=== PATIENT | male | born 1960 | race Caucasian/White ===

== ENCOUNTER → 2019-06-15 09:10 | Outpatient (CLI) | payer MEDICAID, SELFPAY ==
--- NOTE | 2019-06-15 09:22 | XR_ITS ---
PROCEDURE: XR MULTIPLE SPINE 4-5V CLINICAL INDICATION: CERVICALGIA, LBP Left-sided neck pain and low back pain COMPARISON: No exams were available for comparison FINDINGS: Cervical spine two views: Normal alignment. There is mild upper cervical curvature convex right.. No fracture or dislocation. Lumbar spine: Three views minimal lumbar curvature convex left with mild facet arthritic changes at L5-S1 and mild degenerative disc disease at L4-5 and L5-S1. IMPRESSION: Degenerative changes lumbar spine. Mild upper cervical curvature convex right otherwise negative cervical Dictated by: Fernando Izquierdo MD 06/15/2019 13:42 Electronically signed by Fernando Izquierdo MD in [place] 06/15/2019 13:42
== END ==
PROVIDERS: PCP Nurse Practitioner; Visit Provider Nurse Practitioner
DX: M54.2 Cervicalgia (principal); M54.5 Low back pain
CPT/HCPCS: 72083

== ENCOUNTER 2019-07-28 16:00 | Outpatient (RCR) | payer MEDICAID, SELFPAY | END 2019-07-28 17:15 | disposition home or self-care (01) | LOC: PT.CARL 16:00 | PROVIDERS: PCP Nurse Practitioner; Visit Provider Nurse Practitioner | DX: M51.36 Other intervertebral disc degeneration, lumbar region (principal) | CPT/HCPCS: 97012; 97110; 97140; 97163 ==

== ENCOUNTER → 2019-08-19 08:36 | Outpatient (CLI) | payer MEDICAID, SELFPAY ==
[2019-08-19 09:38] LABS: Coronavirus 19 IgG Antibody Negative (Negative); Coronavirus 19 IgM Antibody Negative (Negative)
== END ==
PROVIDERS: Visit Provider Internal Medicine Gastroenterology
DX: Z03.818 Encounter for observation for suspected exposure to other biological agents ruled out (principal)
CPT/HCPCS: 36415; 86328

== ENCOUNTER 2019-08-20 08:16 | Day surgery (SDC) | payer MEDICAID, SELFPAY ==
--- NOTE | 2019-08-17 11:29 | SUR.PREOP ---
08/17/2019 @ 1130--PHONE CALL MADE TO PATIENT. PATIENT UNDERSTANDS THAT LAB WORK AND COVID TESTING NEEDS TO BE COMPLETED @ 0800 ON 08/19/2019. PATIENT UNDERSTANDS IF LAB WORK AND COVID-19 TESTS ARE NOT COMPLETED BY 12PM ON THAT DATE, THE SURGERY SCHEDULED WILL BE CANCELLED AND RESCHEDULED FOR ANOTHER TIME.
[2019-08-17 14:10] VITALS: BMI 32.1
[2019-08-20] VITALS (9 sets, daily range): BP systolic 100–125; BP diastolic 51–73; PULSE 51–63; RESP 16–18; TEMP 36.4–36.8; O2SAT 93–100
--- NOTE | 2019-08-20 09:42 | P.PN_ITS ---
[facility] Anesthesia Checklist - Patient Identification Patient Identification: Arm Band - Structural Data Admitted From: Home Planned Operative Procedure/s: colonoscopy Consent for Planned Operative Procedure(s) Verified: Yes Verified Documents: Surgical Consent, History and Physical - NPO Status Verified Time NPO: 00:00 - Additional verifications Anesthesia Reactions: No - Airway Assessment C-Spine Mobility Assessed: Yes (mp2) TMJ Mobility Assessed: Yes Dentition: Dentures-good fit - Neurological Assessment Level of Consciousness: Awake, Alert - Anesthesia Plan Anesthesia Risk discussed: Yes Anesthesia Plan: Verified ASA Class: III Anesthesia Type: MAC [facility] History I have reviewed the patient's past medical history: Yes Medical History: Reports:: Asthma, Cerebrovascular Accident, Hyperlipidemia, Hypertension Denies:: Cancer (+ cologuard), Diabetes Mellitus Type 1, Diabetes Mellitus Type 2, Internal Pacemaker, MRSA, Seizures *Have you ever received a pneumonia vaccine?: No *Have you received a flu vaccine this season?: Yes Anesthesia experience/problems:: nac Other Surgeries: Yes: Appendectomy, Cholecystectomy, Other. No: Pacemaker Amputation: No Fractures: Yes - *Social History Educational Level: Attended Grade School Smoking Status: Never smoker Alcohol Intake: never Substance Use Type: denies use *Occupational Status:: disabled Housing: house Household Members: none *Travel in the last 8 weeks: None Family Hx:: No significant family history
--- NOTE | 2019-08-20 10:50 | P.PCN_ITS ---
[facility] Procedure Note Procedure Note:: Colonoscopy Procedure Report: Colonoscopy Endoscopist: Jean Carlos Linares II, MD Referring physician: IMAN Lantigua Date of Procedure: August 20, 2019 Equipment: Olympus 180 variable stiffness pediatric colonoscope Sedation: MAC sedation Indication: Mr. Laguna is a 59-year-old gentleman here for diagnostic colonoscopy secondary to a positive Cologuard test. The patient reports no rectal bleeding, hematochezia or melena. He does get some chronic constipation as well as some right lower quadrant abdominal pain and discomfort. He has lost 25 pounds in the last few months. He reports some chronic lower back and neck pain. He reports no gassiness or bloating. He reports no family history of colon cancer. This is his first colonoscopy. The patient's hemoglobin and hematocrit were normal at 14.5 and 40.6. He had normal liver chemistries and normal creatinine. His PSA was normal at 1.2. Procedure: Prior to the procedure, a history and physical exam was performed, and patient's medications and allergies were reviewed. The risks, benefits and alternatives of the sedation and procedure were discussed with the patient. All questions were answered and informed consent was obtained. The patient was brought to the procedure room. Patient identification and proposed procedure were verified by the physician and the nurse. The patient was placed in a left lateral decubitus position and the scope was passed under direct vision. Throughout the procedure, the patient's blood pressure, pulse, and oxygen saturations were monitored continuously. The colonoscopy was accomplished without difficulty. The patient tolerated the procedure well. Findings: On digital rectal examination there was normal rectal tone. There were no external hemorrhoids. The prostate was 2+, smooth, soft, symmetric without nodules. The colonoscope was introduced through the anal canal to the rectum and advanced to the cecum. The ileocecal valve and appendiceal orifice were identified. The scope was advanced a short distance into the ileum which appeared grossly normal. The scope was then withdrawn into the colon. The cecum, ascending, transverse, descending, sigmoid and rectum were grossly normal. There were no mucosal abnormalities identified. Upon retroflexion within the rectum there were grade 1-2 internal hemorrhoids.The preparation was excellent throughout with Casselberry Preparation Score of 9. The cecal time was 16 minutes. Impression: 1. Normal colonoscopy with intubation of the terminal ileum 2. Grade 1-2 internal hemorrhoids Plan: There were no diagnostic findings. The patient is not anemic. Based upon his abdominal pain and weight loss, I would consider CT scan of the abdomen and pelvis which I may obtain today. I will recommend a fiber bowel regimen.
--- NOTE | 2019-08-20 11:31 | CT_ITS ---
PROCEDURE: CT CHEST W CON CLINCAL INDICATION: abdominal pain and weight loss Unexplained weight loss COMPARISON: CT ABDOMEN PELVIS W CON from 08/20/2019 TECHNIQUE: IV Contrast: 75ml Optiray 350 Axial images obtained with sagittal and coronal reformats. All CT scans at the facility use one or more dose reduction, viz: automated exposure control, ma/kV adjustment per patient size (including targeted exams where dose is matched to indication, i.e. head), or iterative reconstruction technique. FINDINGS: HEART AND MEDIASTINAL STRUCTURES: No mediastinal or hilar mass or adenopathy. There is some mild calcification of the coronary arteries. LUNGS AND PLEURAL SPACES: There is calcified granuloma in the left lower lobe. No lobar consolidation or collapse. No suspicious pulmonary nodules identified no central airway obstruction BONY STRUCTURES: There are old right-sided rib fractures posteriorly UPPER ABDOMEN: See abdomen report ADDITIONAL FINDINGS: No other significant abnormalities. IMPRESSION: No acute finding. Dictated by: Fernando Izquierdo MD 08/21/2019 07:57 Electronically signed by Fernando Izquierdo MD in [place] 08/21/2019 07:57
--- NOTE | 2019-08-20 11:31 | CT_ITS ---
PROCEDURE: CT ABDOMEN PELVIS W CON CLINICAL INDICATION: abdominal pain and weight loss COMPARISON: No exams were available for comparison TECHNIQUE: IV Contrast: 75ML OPTIRAY 350 Oral Contrast 20ml Gastroview Axial images obtained with sagittal and coronal reformats. All CT scans at the facility use one or more dose reduction, viz: automated exposure control, ma/kV adjustment per patient size (including targeted exams where dose is matched to indication, i.e. head), or iterative reconstruction technique. FINDINGS: LOWER THORAX: Minimal coronary artery calcification noted ABDOMEN & PELVIS: Prior cholecystectomy. There is mild thickening of the distal esophagus which is nonspecific but could be seen with esophagitis. The liver, spleen, adrenal glands, and pancreas have an unremarkable appearance. There is minimal ectasia of the abdominal aorta at 2 cm with mild calcification. There is minimal ectasia of the iliac arteries at 1.4 cm. There is mild thickening of the terminal ileum, cecum, and proximal ascending colon. There is no stranding of the pericolic fat. Prostate is slightly enlarged at 4.7 cm. There is concentric thickening of the wall of the urinary bladder. A small amount of fluid is present in the pelvis. There is a small umbilical hernia which contains a knuckle of small bowel. No evidence of bowel obstruction. No acute bony anomalies. There are mild degenerative changes of the pelvis and lumbar spine IMPRESSION: 1. Mild thickening of the terminal ileum, cecum, and proximal ascending colon. While this could be due to nondistention, inflammatory bowel disease is also consideration. Please correlate with patient's recent endoscopy. 2. Small umbilical hernia containing a knuckle of small bowel without obstruction 3. Enlarged prostate. 4. Concentric thickening of the urinary bladder. This is nonspecific and could in part be due to nondistention. Infiltrating process such is cystitis or neoplasm would be included in the differential diagnosis. There is a small amount of fluid in the pelvis Dictated by: Fernando Izquierdo MD 08/21/2019 08:18 Electronically signed by Fernando Izquierdo MD in [place] 08/21/2019 08:18
[2019-08-20 12:01] LABS: Blood Urea Nitrogen 13 mg/dl (9-20); Creatinine Clearance Estimated 124 mL/min (50-200); Estimated Glomerular Filt Rate 86 ml/min (>60); GFR (African American) 105 ML/MIN (>60)
== END 2019-08-20 13:43 | disposition home or self-care (01) ==
LOC: OUTP 08:17
PROVIDERS: PCP Nurse Practitioner; Visit Provider Internal Medicine Gastroenterology
PROC: 0DJD8ZZ Inspection of Lower Intestinal Tract, Via Natural or Artificial Opening Endoscopic (ICD-10-PCS; CPT 45378; principal; 2019-08-20 09:30)
DX: R19.5 Other fecal abnormalities (principal); K59.09 Other constipation; R10.31 Right lower quadrant pain; M54.9 Dorsalgia, unspecified; M54.2 Cervicalgia; K64.0 First degree hemorrhoids; I10 Essential (primary) hypertension; E78.5 Hyperlipidemia, unspecified; J45.909 Unspecified asthma, uncomplicated; I63.9 Cerebral infarction, unspecified; Z90.49 Acquired absence of other specified parts of digestive tract
CPT/HCPCS: 45378; 36415; 71260; 74177; 82565; 84520; Q9967

== ENCOUNTER → 2019-09-23 08:00 | Outpatient (CLI) | payer MEDICAID, SELFPAY ==
--- NOTE | 2019-09-23 08:02 | CA_ITS ---
APPROVED REPORT EXAM: Comprehensive 2D, Doppler, and color-flow Echocardiogram Contracting Analyst: Chiara Beverly CRT Ht: 5 ft 9 in Wt: 220lbs BSA: 2.15 BP: 117/73 mmHg Indications: Shortness of Breath, Peripheral Edema, Hyperlipidemia, Hypertension/HDD, asthma, CVA 2D Dimensions LVOT 2.03 cm (M/F) 1.5-2.5 M-Mode Dimensions RVDd 2.85 cm (0.9-2.6) LVDd 5.40 cm (3.5-5.7) LVDs 3.69 cm (3.5-5.7) IVSd 1.67 cm (0.6-1.1) PWd 0.84 cm (0.6-1.1) EF (Teich) 59.10% FS 31.70% EDV (Teich) 141.30 mL ESV (Teich) 57.80 mL LV Diastology E/A Ratio 0.84 Mitral Valve MV A Velocity 76.00 (40-130 cm/s) Left Ventricle Left atrium is mildly enlarged, left ventricle is normal size, mild concentric left ventricular hypertrophy, visually estimated ejection fraction 55% with no regional wall motion abnormality, grade 1 diastolic dysfunction seen without tissue Doppler evidence of raise left atrial pressure. Right Ventricle Right atrium and right ventricle are normal size and contractility. Aortic Valve Aortic valve is minimally thickened and fibrosed, there is no aortic stenosis or aortic insufficiency. Mitral Valve Mitral valve is grossly normal, there is trace mitral regurgitation. Tricuspid Valve Tricuspid valve is grossly normal, there is mild tricuspid regurgitation, tricuspid regurgitation jet velocity is inadequate for calculation of the right ventricular systolic pressure. Pulmonic Valve Pulmonic valve is poorly visualized. Great Vessels Aortic root is normal size. Pericardium No significant pericardial effusion noted. Conclusion 1. Mildly enlarged left atrium, normal left ventricular size, mild concentric left ventricular hypertrophy, visually estimated ejection fraction 55% with no regional wall motion abnormality, grade 1 diastolic dysfunction seen without tissue Doppler evidence of raise left atrial pressure. 2. Mild mitral and tricuspid regurgitation. 3. No significant pericardial effusion noted. Electronically signed by : Earl Lares, 09/23/2019 13:19:36
--- NOTE | 2019-09-23 08:42 | MR_ITS ---
PROCEDURE: MR LUMBAR SPINE WO CON CLINICAL INDICATION: LOW BACK PAIN COMPARISON: XR MULTIPLE SPINE 4-5V from 06/15/2019 TECHNIQUE: Standard multiplanar multiecho sequences are performed without contrast. 3-D MIP and myelographic images are also rendered and reviewed FINDINGS: There is a 12.76 hyperintense hemangioma within the L2 vertebral body. There is otherwise uniform fat marrow signal hyperintensity. The spinal cord, conus medullaris, and disc spaces are intact. At the L1-2 disc space there is no significant spinal stenosis. At the L2-3 disc space there is no significant spinal stenosis. At the L3-4 disc space there is no significant spinal stenosis. At the L4-5 disc space there is a broad-based disc protrusion, mild facet arthropathy, and hypertrophy of the ligament flavum producing moderate central canal and moderate bilateral neural foraminal stenosis. AP canal measures 7.5 millimeters. At the L5-S1 disc space there is a eccentric broad-based disc osteophyte complex and, hypertrophy ligament flavum, moderate facet arthropathy, left greater than right producing mild central canal and pnev-nn-nhjrquhy left neural foraminal stenosis. There is a subtle left laminectomy defect with enhancing scar. The paralumbar structures are unremarkable. IMPRESSION: Status post left L5-S1 hemilaminectomy, multi-level spinal stenosis as described above. Dictated by: Raphael Ramirez 09/23/2019 10:13 Electronically signed by Raphael Ramirez in [place] 09/23/2019 10:13
== END ==
PROVIDERS: PCP Nurse Practitioner; Visit Provider Nurse Practitioner
DX: M54.5 Low back pain (principal); R60.0 Localized edema
CPT/HCPCS: 72148; 76376; 93306

== ENCOUNTER → 2019-10-29 06:31 | Outpatient (CLI) | payer MEDICAID, SELFPAY ==
--- NOTE | 2019-10-29 | CA_ITS ---
APPROVED REPORT Exam: Pharmacologic Technologist: Criselda Graham, Ht: 5 ft 9 in Wt: 185 lbs BSA: 2.00 m2 HR: 65 bpm BP: 126/87 mmHg Rhythm: SINUS RHYTHM(ABNORMAL EKG)RBBB Medical History Medical History: HTN, Hyperlipidemia Medications: Asa,,,,, Atorvastatin,,,,, TAMSULOSIN,,,,, Albuterol,,,,, SpirOLACTONE,,,,, Allergies: SHELL FISH PCN Cardiac Risk Factors: HTN, Hyperlipidemia Stress Test Details Test: LEXISCAN HR Resting HR: 64 bpm Max Heart Rate (APMHR): 161 bpm Max HR Achieved: 92 bpm Target HR (85% APMHR): 136 bpm % of APMHR: 57 Recovery HR: 84 bpm BP Resting BP: 126.0/81.0 mmHg Max BP: 135.0/84.0 mmHg Recovery BP: 135.0/84.0 mmHg ECG Resting ECG: SINUS RHYTHM(RBBB) Clinical Exercise duration: 04:00 min Highest Stage Achieved: Exercise capacity: 1.0 METs Stress ECG Conclusion LEXISCAN PORTION COMPLETED. PATIENT C/O NAUSEA DURING PEAK INFUSION. NO CHEST PAIN OR SOA. NAUSEA DURING PEAK INFUSION. NO ECTOPY. LESS THAN 1.[address] DEPRESSION. IMAGES TO FOLLOW Electronically signed by : Earl Lares, 10/29/2019 13:28:43
--- NOTE | 2019-10-29 06:32 | CA_ITS ---
APPROVED REPORT Human Resources Manager Manufacturing: JAYME Laterality: Bilateral Study Quality: Good Indications: History of CVA, Carotid bruits on exam Doppler Spectral Velocity Analysis dICA (R) 62.60/22.90 cm/s dICA (L) 72.20/30.00 cm/s Laney (R) 85.10/28.40 cm/s Laney (L) 68.00/26.00 cm/s pICA (R) 86.30/31.50 cm/s pICA (L) 68.50/24.50 cm/s dCCA (R) 133.80/37.30 cm/s dCCA (L) 111.50/29.10 cm/s pCCA (R) 145.80/34.00 cm/s pCCA (L) 222.80/47.60 cm/s Vert (R) 54.80/16.40 cm/s Vert (L) 51.80/16.00 cm/s ICA/CCA 0.70 ICA/CCA 0.70 Findings The right carotid arterial system appeared to be normal without stenosis of the bulb or internal carotid artery. The left carotid arterial system appeared to be normal without stenosis of the bulb or internal carotid artery. Antegrade flow seen bilateral vertebral arteries. Conclusion No increased velocities to suggest hemodynamically significant stenosis in either internal carotid artery. Electronically signed by : Fernando Izquierdo MD 11/01/2019 15:25:46
--- NOTE | 2019-10-29 06:36 | NM_ITS ---
APPROVED REPORT Exam: Nuclear Stress Test Indication: chest pain..short of breath..fatigue Patient Location: Outpatient Stress Tech: Tasia Gladys [place] Tech:RESHMA Medina RT(R)(N) Ht: 5 ft 9 in Wt: 185 lbs HR: 65 bpm BP: 126/81 mmHg BSA: 2.00 m2 BMI: 27.3 History: chest pain..short of breath..fatigue Procedure: Patient received a 0.4 mg of intravenous Lexiscan, resting heart rate 65 bpm, resting blood pressure 126/81 mmHg, with Lexiscan maximum heart rate achived was 84 bpm which is Less than 85 % of the maximum predicted heart rate and blood pressure was 135/84 mmHg. With Lexiscan, patient denied any complaint of chest pain. Electrocardiogram Resting electrocardiogram showed sinus rhythm, with Lexiscan there is less than 1.[address] segment depression noted from the baseline EKG. The EKG portion of the Lexiscan Myoview is nondiagnostic. Cardiac Stress and Resting SPECT Images: Cardiac Stress and Resting SPECT images were obtained using technetium 99m Myoview 30.4 mCi stress and 9.96 mCi at rest. Gated SPECT for analysis of segmental wall motion and calculation of the ejection fraction also done. Cardiac stress and resting SPECT images show decrease tracer activity in the inferior wall which improves on the resting images suggestive of reversible ischemia, computer derived ejection fraction is 57% with no regional wall motion abnormality, right ventricle is normal size and contractility. Conclusion: 1. The EKG portion of the Lexiscan Myoview is nondiagnostic. 2. Scintigraphic evidence of mild reversible ischemia involving the inferior wall, computer derived ejection fraction is 57% with no regional wall motion abnormality, right ventricle is normal size and contractility. 3. Abnormal Lexiscan Myoview study. Electronically signed by : Earl Lares, 10/29/2019 13:31:22
--- NOTE | 2019-10-29 09:49 | HMH.ITSHM ---
Current Home Medications as stated by this patient Eric Laguna or health and safety representative. [] spironlactone tamsulosin asa alfuzosn alberterol
== END ==
PROVIDERS: PCP Nurse Practitioner; Visit Provider Physician Assistant
DX: R94.31 Abnormal electrocardiogram [ECG] [EKG] (principal); Z86.73 Personal history of transient ischemic attack (TIA), and cerebral infarction without residual deficits; I11.9 Hypertensive heart disease without heart failure
CPT/HCPCS: 78452; 93017; 93880; A9502; J2785

== ENCOUNTER → 2019-10-29 10:02 | Outpatient (CLI) | payer MEDICAID, SELFPAY ==
[2019-10-29 10:58] LABS: Chloride 101 mmol/L (98-107); Sodium 139 mmol/L (136-145)
[2019-10-29 10:59] LABS: Potassium 4.7 mmoL/L (3.5-5.1)
[2019-10-29 11:02] LABS: Anion Gap 12.7 mEq/L (5-15); Blood Urea Nitrogen 22 mg/dl (9-20); Carbon Dioxide 30 mmol/L (22.0-30.0); Estimated Glomerular Filt Rate 76 ml/min (>60); GFR (African American) 93 ML/MIN (>60); Glucose 77 mg/dl (74-100)
== END ==
PROVIDERS: Visit Provider Physician Assistant
DX: R06.00 Dyspnea, unspecified (principal); I11.9 Hypertensive heart disease without heart failure
CPT/HCPCS: 36415; 80048

== ENCOUNTER 2019-11-10 08:14 | Day surgery (SDC) | payer MEDICAID, SELFPAY ==
[2019-11-10] VITALS (13 sets, daily range): BP systolic 83–121; BP diastolic 48–70; PULSE 50–66; RESP 16–20; TEMP 36.6; O2SAT 91–97; BMI 30.5
[2019-11-10 09:23] LABS: Basophils # 0.1 K/mm3 (0-0.2); Eosinophils # 0.1 K/mm3 (0.0-0.4); Eosinophils % 1.7 % (0.1-12.0); Hematocrit 43.5 % (42.0-52.0); Hemoglobin 14.8 g/dL (14.1-18.0); Lymphocytes # 2.5 K/mm3 (0.7-4.5); Lymphocytes % 41.6 % (10-50); Mean Corpuscular Hemoglobin 33.8 pg (27.0-31.2); Mean Corpuscular Volume 99.2 fl (80-94); Mean Platelet Volume 7.4 fl (7.4-10.4); Monocytes # 0.7 K/mm3 (0.1-1.0); Monocytes % 11.7 % (1.7-9.3); Neutrophils # 2.7 K/mm3 (1.8-7.8); Neutrophils % 43.9 % (37.0-80.0); Platelet Count 174 K/mm3 (142-424); Red Blood Count 4.38 M/mm3 (4.60-6.20); Red Cell Distribution Width 13.2 % (11.5-17.5)
[2019-11-10 09:29] LABS: Chloride 106 mmol/L (98-107); Potassium 4.4 mmoL/L (3.5-5.1); Sodium 140 mmol/L (136-145)
[2019-11-10 09:32] LABS: Anion Gap 11.4 mEq/L (5-15); Blood Urea Nitrogen 23 mg/dl (9-20); Calcium 9.3 mg/dl (8.4-10.2); Carbon Dioxide 27 mmol/L (22.0-30.0); Creatinine Clearance Estimated 106 mL/min (50-200); Estimated Glomerular Filt Rate 76 ml/min (>60); GFR (African American) 93 ML/MIN (>60); Glucose 90 mg/dl (74-100)
[2019-11-10 09:49] LABS: Coronavirus 19 IgG Antibody Positive (Negative); Coronavirus 19 IgM Antibody Negative (Negative)
--- NOTE | 2019-11-10 10:30 | IR_ITS ---
APPROVED REPORT Patient Location: Outpatient Java Developer: RESHMA Herman RT (R) PROCEDURES Right heart catheterization left heart catheterization Left ventriculogram Selective coronary angiogram INDICATION Abnormal Myoview, Dyspnea, Pulmonary hypertension Informed consent was obtained prior to the procedure. COMPLICATIONS NONE Estimated Blood Loss: Less than 10 mls TECHNIQUE One percent lidocaine was used to anesthetize the right anterior aspect of the right wrist. The right radial artery was accessed via the Seldinger technique and a 6 [place]une[place] hydrophilic sheath was placed in the right radial artery. Following this one percent lidocaine was used to anesthetize the right anterior aspect of the right neck. The right internal jugular vein was accessed via the Seldinger technique and a 7 [place] sheath was placed in the right internal jugular vein. Following this an arterial cocktail was administered using 5000U heparin, 2.5 mg verapamil, 1mg Lidocaine and 800mcg nitroglycerin into the right radial sheath. A trap catheter was used to perform left heart catheterization left ventriculogram and selective coronary angiography while a [place]Zachary catheter was used to perform right heart catheterization. Saturations were obtained in the pulmonary artery and right atrium. At the end of the procedure the arterial sheath was removed good hemostasis was achieved using Traclet band. Patient was transferred to the postop holding area in stable condition for venous sheath removal. ANGIOGRAPHIC RESULTS The left main artery Normal The left anterior descending artery Has mild proximal and mid vessel 10% luminal irregularities The circumflex artery Is nondominant yet still large vessel with mild mid vessel 10 to 20% stenoses The right coronary artery Is a dominant vessel with mid vessel 20 to 30% stenoses The SANCHEZ ventriculogram reveals Normal 65% The left ventricular end-diastolic pressure Less than 10 mmHg Right atrial pressure 2 to 3 mmHg Pulmonary pressure 20/8 mmHg Pulmonary occlusion pressure 5 mmHg Right atrial and pulmonary artery saturation 82% IMPRESSION Mild gqi-gson-aqbaqghz coronary disease Normal intra-cardiopulmonary filling pressures Normal ejection fraction PLAN 1. Evaluation of noncardiac symptomatology 2. Risk factor modification Electronically signed by : Jonathan Morris, 11/10/2019 11:19:52
[2019-11-10 14:18] LABS: CATHL Arterial O2 SAT 82 % (90-100); CATHL Venous O2 SAT 82 % (75-80)
== END 2019-11-10 14:33 | disposition hospice, home (50) ==
LOC: CATHLAB 08:16
PROVIDERS: PCP Nurse Practitioner; Visit Provider Internal Medicine
DX: I11.9 Hypertensive heart disease without heart failure (principal); E78.5 Hyperlipidemia, unspecified; I27.20 Pulmonary hypertension, unspecified; R94.31 Abnormal electrocardiogram [ECG] [EKG]; R94.39 Abnormal result of other cardiovascular function study; Z87.891 Personal history of nicotine dependence; I69.328 Other speech and language deficits following cerebral infarction; I69.398 Other sequelae of cerebral infarction; Z88.0 Allergy status to penicillin; Z91.013 Allergy to seafood
CPT/HCPCS: 80048; 82810; 85025; 86328; 93460; 99152; C1725; C1760; C1769; C1894; J1644; Q9967

== ENCOUNTER 2020-04-07 09:44 | Emergency (ER) | payer MEDICAID, SELFPAY ==
[2020-04-07 09:45] VITALS: BP 151/90; PULSE 77; RESP 18; TEMP 36.8; O2SAT 97; BMI 29.5
--- NOTE | 2020-04-07 09:50 | HMH.EDGENADL ---
ED Disposition Clinical Impression: Wrist pain Qualifiers: Laterality: left Qualified Code(s): M25.532 - Pain in left wrist Disposition: Home, Self-Care Condition on Discharge: Good Additional Instructions: Remain in wrist base except for bathing. Take medication as prescribed. Do not take Tylenol with codeine while operating heavy machinery or drinking alcohol. Only take this for breakthrough pain. Please follow-up with your doctor next week and if continued pain you may be requiring referral to specialist. If any new or other concerning symptoms like decreased range of motion, overlying skin changes, increased pain, or other new changes please return to our emergency department immediately. Referrals: Ciara Shay APRN [Primary Care Provider] - - Critical Care Critical Care Time: No Attestation: On , the high probability of a clinically significant, sudden or life threatening deterioration of the following system(s) required my full and direct attention, intervention and personal management. The time I documented below is in addition to time spent performing reported procedures but includes the following listed in this critical care notation. Medical Decision Making - Medical Records Medical records reviewed: Yes: I reviewed the patient's medical records. - Piyush Inquiry Pt receiving controlled substance: No Vital Signs: 04/07/20 09:45 04/07/20 10:27 Temperature 98.3 F Temperature Source Oral Pulse Rate [Left Radial] 77 77 Respiratory Rate 18 20 Blood Pressure [Right Arm] 151/90 H 153/92 H Blood Pressure Mean [Right Arm] 110 112 Blood Pressure Source [Right Arm] Automatic Cuff Automatic Cuff Blood Pressure Position [Right Arm] Sitting Sitting 02 Sat by Pulse Oximetry 97 97 Oxygen Delivery Method Room Air Room Air Medical Decision Narrative: Patient is a 60-year-old male presenting with left wrist/hand pain. He states is atraumatic but x-rays will be obtained to ensure no fracture or other bony abnormalities. He is neurovascularly intact in median, ulnar, and radial nerve distribution. No breaks in the skin. No outward signs of trauma. No redness/overlying erythema that could indicate an infectious process. He has full active and passive range of motion. X-rays demonstrate no periosteal elevation, other infectious signs, or bony abnormalities. At this time, etiology not entirely certain. No significant laxity noted to ulnar collateral ligament of the left but he does have some pain with doing some bedside testing. There could be some ligamentous injury so patient placed in a wrist brace and sent home with Tylenol with codeine for breakthrough pain use. He would not operate heavy machinery or drink alcohol while taking this pain medicine. He agrees. He will follow-up with his doctor next week and if he is not improving he may be requiring referral to orthopedic. Assessment: Left wrist pain Hypertension Hyperlipidemia Disposition: Home with a wrist brace and PCP follow-up General Adult HPI - General Stated complaint: left hand pain Time Seen by Provider: 04/07/20 10:30 - History of Present Illness HPI narrative: Patient is a 60-year-old male history of hypertension, hyperlipidemia presenting with left wrist pain. Patient states over the past several days he has had an aching pain in his left hand/wrist. He denies any known trauma. He does have arthritis as well and states this feels somewhat like his arthritis in the past. No decreased passive or active range of motion in his left hand/wrist. No overlying changes to the skin or breaks in the skin. He has tried Tylenol with some relief. - Related Data Home Medications Medication Instructions Recorded Confirmed Albuterol Sulfate [Albuterol 4 mg PO DAILY 08/20/19 11/22/19 Sulfate 4mg Tab] Alfuzosin HCl [Alfuzosin HCl ER] 10 mg PO DAILY 08/20/19 11/22/19 Aspirin [Aspir 81] 81 mg PO DAILY 08/20/19 11/22/19 Atorvastati
--- NOTE | 2020-04-07 10:12 | XR_ITS ---
PROCEDURE: XR WRIST LT MIN 3V CLINICAL INDICATION: L wrist pain nontraumatic COMPARISON: No exams were available for comparison FINDINGS: No fracture or dislocation. No lytic or blastic change. There is normal mineralization. The joint spaces are well-preserved. No significant degenerative/arthritic changes. No erosive changes evident. Other findings:None. IMPRESSION: No acute findings. Dictated by: Fernando Izquierdo MD 04/07/2020 11:01 Fernando Izquierdo MD in [place] 04/07/2020 11:01
--- NOTE | 2020-04-07 10:13 | XR_ITS ---
PROCEDURE: XR HAND LT MIN 3V CLINICAL INDICATION: pain COMPARISON: No exams were available for comparison FINDINGS: No fracture or dislocation. No lytic or blastic change. There is normal mineralization. The joint spaces are well-preserved. No significant degenerative/arthritic changes. No erosive changes evident. Other findings:None. IMPRESSION: No acute findings. Dictated by: Fernando Izquierdo MD 04/07/2020 11:01 Fernando Izquierdo MD in [facility] 04/07/2020 11:01
[2020-04-07 10:27] VITALS: BP 153/92; PULSE 77; RESP 20; O2SAT 97
[2020-04-07 11:21] VITALS: BP 130/82; PULSE 78; RESP 20; O2SAT 95
[2020-04-07 11:40] VITALS: BP 130/80; PULSE 78; RESP 18; TEMP 36.8; O2SAT 95
== END 2020-04-07 11:41 | disposition home or self-care (01) ==
PROVIDERS: Emergency Provider Emergency Medicine; PCP Nurse Practitioner
DX: M25.532 Pain in left wrist (principal); I10 Essential (primary) hypertension; E78.5 Hyperlipidemia, unspecified; J45.909 Unspecified asthma, uncomplicated; Z87.891 Personal history of nicotine dependence; Z88.0 Allergy status to penicillin; Z79.899 Other long term (current) drug therapy
CPT/HCPCS: 29125; 73110; 73130; 99282

== ENCOUNTER 2020-08-06 10:40 | Emergency (ER) | payer MEDICAID, SELFPAY ==
[2020-08-06] VITALS (7 sets, daily range): BP systolic 120–148; BP diastolic 71–94; PULSE 67–97; RESP 13–18; TEMP 36.6–36.8; O2SAT 95–98; BMI 29.5
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
[2020-08-06 11:32] LABS: Basophils % 0.6 % (0.1-2.0); Eosinophils # 0.1 K/mm3 (0.0-0.4); Eosinophils % 1.3 % (0.1-12.0); Hematocrit 44.3 % (42.0-52.0); Hemoglobin 14.1 g/dL (14.1-18.0); Lymphocytes # 2.2 K/mm3 (0.7-4.5); Mean Corpuscular HGB Conc 31.9 g/dL (31.8-35.4); Mean Corpuscular Hemoglobin 31.5 pg (27.0-31.2); Mean Corpuscular Volume 98.8 fl (80-94); Mean Platelet Volume 7.3 fl (7.4-10.4); Monocytes # 0.7 K/mm3 (0.1-1.0); Monocytes % 11.7 % (1.7-9.3); Neutrophils # 2.9 K/mm3 (1.8-7.8); Neutrophils % 49.4 % (37.0-80.0); Platelet Count 164 K/mm3 (142-424); Red Blood Count 4.48 M/mm3 (4.60-6.20); Red Cell Distribution Width 13.6 % (11.5-17.5); White Blood Count 5.9 K/mm3 (4.8-10.8)
[2020-08-06 11:33] LABS: Chloride 104 mmol/L (98-107)
[2020-08-06 11:34] LABS: Potassium 3.7 mmoL/L (3.5-5.1); Sodium 136 mmol/L (136-145)
[2020-08-06 11:36] LABS: Alanine Aminotransferase 34 U/L (12-78); Alkaline Phosphatase 66 U/L (38-126); Aspartate Amino Transferase 41 U/L (17-59); Bilirubin,Total 0.7 mg/dl (0.2-1.3); Blood Urea Nitrogen 10 mg/dl (9-20); Creatinine Clearance Estimated 112 mL/min (50-200); Estimated Glomerular Filt Rate 86 ml/min (>60); GFR (African American) 104 ML/MIN (>60)
[2020-08-06 11:37] LABS: Albumin Level 3.9 g/dl (3.5-5.0); Albumin/Globulin Ratio 1.6 (1.1-1.8); Anion Gap 10.7 mEq/L (5-15); Calcium 9.2 mg/dl (8.4-10.2); Carbon Dioxide 25 mmol/L (22.0-30.0); Globulin 2.5 g/dL (1.3-3.2); Glucose 156 mg/dl (74-100); Total Protein,Serum 6.4 g/dl (6.3-8.2)
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
--- NOTE | 2020-08-06 13:05 | PC.NURSE ---
[facility] CT and x-ray reports given to ER MD Atkins.
--- NOTE | 2020-08-06 14:05 | PC.NURSE ---
Dr Atkins speaking with [employer]
--- NOTE | 2020-08-06 14:37 | PC.NURSE ---
Patient was asked to call a pizza driver before Morphine could be administered as he will be getting discharged shortly. Pt called a Judit Perea on speaker to drive him home and she agreed.
== END 2020-08-06 17:24 | disposition home or self-care (01) ==
PROVIDERS: Emergency Provider Emergency Medicine; PCP Nurse Practitioner
DX: S12.501A Unspecified nondisplaced fracture of sixth cervical vertebra, initial encounter for closed fracture (principal); S02.2XXA Fracture of nasal bones, initial encounter for closed fracture; S60.511A Abrasion of right hand, initial encounter; V48.0XXA Car driver injured in noncollision transport accident in nontraffic accident, initial encounter; Y92.488 Other paved roadways as the place of occurrence of the external cause
CPT/HCPCS: 70450; 70486; 71046; 72125; 73030; 73130; 74177; 80053; 85025; 99281; J2405; Q9967

== ENCOUNTER 2020-08-13 08:52 | Emergency (ER) | payer OTHER, SELFPAY ==
[2020-08-13 08:54] VITALS: BP 132/86; PULSE 84; RESP 17; TEMP 36.6; O2SAT 99; BMI 29.5
--- NOTE | 2020-08-13 09:23 | HMH.EDGENADL ---
ED Disposition Clinical Impression: Radiculopathy affecting upper extremity C6 cervical fracture Qualifiers: Encounter type: initial encounter Fracture type: closed Fracture morphology: unspecified fracture morphology Fracture alignment: nondisplaced Qualified Code(s): S12.501A - Unspecified nondisplaced fracture of sixth cervical vertebra, initial encounter for closed fracture Left shoulder pain Qualifiers: Chronicity: acute Qualified Code(s): M25.512 - Pain in left shoulder Disposition: Home, Self-Care Condition on Discharge: Good Additional Instructions: Lortab 10 mg as prescribed for pain. Follow-up with [facility] spine clinic. Follow-up with Dr. Blake, orthopedics at [facility] for evaluation of shoulder, call for appointment. Additional instructions for CONTROLLED SUBSTANCES: You have been prescribed a medication that is a controlled substance. Controlled substances include pain medications known as opiates and sedative nerve medications known as benzodiazepines. Tramadol, fioricet, and gabapentin are also controlled substances. Some common opiates include: Codeine (such as Tylenol #3) Hydrocodone (Vicodin, Lortab, Lorcet, [place]) Oxycodone (Percocet, Percodan, Oxycodone, Oxy IR) Some common benzodiazepines include: Diazepam (Valium) Lorazepam (Ativan) Alprazolam (Xanax) Clonazepam (Klonopin) Oxazepam (Serax) All of these controlled substances are highly addictive and frequently abused. Misuse can and frequently does lead to addiction as well as overdose and . Medication should be stored in a locked cabinet or other secure storage unit. Do not store the medication in a motor vehicle. Short term supplies, 3 days or less, are prescribed because of the highly addictive nature of the medication. Any of the controlled substance medication NOT taken should be disposed of properly and NOT SAVED. The recommended method of disposing of unused medications is: Place the medicines in a sealable plastic bag. If the medicine is a solid, crush it or add water to dissolve it. Add something undesirable (cat litter, coffee grounds, etc.) Dispose of sealed bag in household trash Do not flush or pour unused medicines down a sink or drain. Controlled substances should not be shared, given away or sold. Because of the addictive nature and frequent abuse, these medications are sometimes stolen. These medications should be kept in a safe place where they cannot be stolen. Do not keep them in your car or purse. Lost or stolen prescriptions for controlled substances WILL NOT BE REFILLED in this emergency department, regardless of whether a police report was filed. Prescriptions: Hydrocodone/Acetaminophen [Lortab 10/325mg tablet] 1 tab PO Q6HP PRN #10 tab PRN Reason: Moderate To Severe Pain Transmission Status: Received by [facility] #[id number] Referrals: Ciara Shay APRN [Primary Care Provider] - Zuleima Blake MD [Physician] - - Critical Care Critical Care Time: No Attestation: On 08/13/20, the high probability of a clinically significant, sudden or life threatening deterioration of the following system(s) required my full and direct attention, intervention and personal management. The time I documented below is in addition to time spent performing reported procedures but includes the following listed in this critical care notation. Medical Decision Making - Piyush Inquiry Pt receiving controlled substance: Yes Piyush was queried for this patient: Yes Risks and benefits of using a controlled substance: were discussed with pt by me Vital Signs: 08/13/20 08:54 08/13/20 09:30 Temperature 97.9 F 97.9 F Temperature Source Oral Oral Pulse Rate 73 Pulse Rate [Right] 84 Respiratory Rate 17 18 Blood Pressure 143/71 H Blood Pressure [Right Arm] 132/86 Blood Pressure Mean [Right Arm] 101 02 Sat by Pulse Oximetry 99 Oxygen Delivery
[2020-08-13 09:30] VITALS: BP 143/71; PULSE 73; RESP 18; TEMP 36.6; O2SAT 98
== END 2020-08-13 09:38 | disposition home or self-care (01) ==
PROVIDERS: Emergency Provider Emergency Medicine; PCP Nurse Practitioner
DX: M54.12 Radiculopathy, cervical region (principal); S12.501D Unspecified nondisplaced fracture of sixth cervical vertebra, subsequent encounter for fracture with routine healing; S02.2XXD Fracture of nasal bones, subsequent encounter for fracture with routine healing; I10 Essential (primary) hypertension; E78.5 Hyperlipidemia, unspecified; Z86.73 Personal history of transient ischemic attack (TIA), and cerebral infarction without residual deficits
CPT/HCPCS: 99281

== ENCOUNTER → 2020-09-28 12:28 | Outpatient (CLI) | payer MEDICAID, SELFPAY ==
--- NOTE | 2020-09-28 12:35 | XR_ITS ---
PROCEDURE: XR CHEST 2V CLINICAL HISTORY: ABN WEIGHT LOSS COMPARISON: CT CT CHEST W CON from 08/20/2019 CR XR CHEST 2V from 08/06/2020 FINDINGS: The cardiomediastinal silhouette and pulmonary vascularity are within normal limits. The lungs are clear without infiltrates, suspicious nodules, or pleural effusions. There is calcified granuloma in the left lung base. There are old bilateral rib fractures. Cervical bone plate is present. IMPRESSION: No change with no acute Dictated by: Fernando Izquierdo MD 09/28/2020 13:13 Fernando Izquierdo MD in [place] 09/28/2020 13:13
== END ==
PROVIDERS: PCP Nurse Practitioner; Visit Provider Nurse Practitioner
DX: R63.4 Abnormal weight loss (principal)
CPT/HCPCS: 71046

== ENCOUNTER → 2021-03-29 06:28 | Outpatient (CLI) | payer MEDICAID, SELFPAY ==
--- NOTE | 2021-03-29 | CA_ITS ---
APPROVED REPORT Exam: Pharmacologic Technologist: Myrna Salcedo, Ht: 5 ft 9 in Wt: 226 lbs BSA: 2.18 m2 HR: 70 bpm BP: 141/80 mmHg Medical History Medications: Omeprazole,,,,, Aspirin,,,,, Metoprolol Tartrate,,,,, Atorvastatin,,,,, Albuterol,,,,, Ibuprofen,,,,, AmiTRIPTYLINE,,,,, Furosemide,,,,, Divaloproex,,,,, Stress Test Details Test: LEXISCAN HR Resting HR: 72 bpm Max Heart Rate (APMHR): 159.886692 bpm Max HR Achieved: 91 bpm Target HR (85% APMHR): 135.783615 bpm % of APMHR: 57.23 Recovery HR: 79 bpm BP Resting BP: 141/80 mmHg Max BP: 147/83 mmHg Recovery BP: 143.0/89.0 mmHg ECG Resting ECG: NSR, rightward axis, ST-T abns inferiorly and laterally Clinical Exercise duration: 04:00 min Highest Stage Achieved: Exercise capacity: 1.0 METs Stress ECG Conclusion Symptoms: SOA, stomach discomfort. No CP. Arrhythmias/Ectopy: None. ST-T Changes: mild exaggeration of baseline abns. Conclusion: Non-diagnostic Lexiscan stress. Myoview images reported separately. Test Summary REST . . . . . . . Resting REST 02:23 . . 72 . 141/ 80 . . Stage 1 01:00 . . 83 . . . . Stage 2 01:00 . . 88 . 136/ 81 . . Stage 3 01:00 . . 85 . 141/ 84 . . Stage 4 01:00 . . 83 . 147/ 83 . Stop exercise at 04:00 RECOVERY 01:00 . . 83 . . . . RECOVERY 02:00 . . 82 . 137/ 93 . . RECOVERY 03:00 . . 81 . 143/ 89 . . RECOVERY 03:18 . . 83 . 143/ 89 . . Electronically signed by : Earl Lares MD 03/30/2021 15:38:47
--- NOTE | 2021-03-29 06:36 | NM_ITS ---
APPROVED REPORT Exam: Nuclear Stress Test Indication: C.P., SOB, HYPERTENSIVE HEART DISEASE, EDEMA Patient Location: Outpatient Stress Tech: Myrna Salcedo MD Tech:RESHMA Gray RT (R)(N)(M) Ht: 5 ft 9 in Wt: 240 lbs HR: 70 bpm BP: 141/80 mmHg BSA: 2.23 m2 BMI: 35.4 History: C.P., SOB, HYPERTENSIVE HEART DISEASE, EDEMA Procedure: Patient received a 0.4 mg of intravenous Lexiscan, resting heart rate 70 bpm, resting blood pressure 141/80 mmHg, with Lexiscan maximum heart rate achived was 90 bpm which is Less than 85 % of the maximum predicted heart rate and blood pressure was 136/81 mmHg. With Lexiscan, patient denied any complaint of chest pain. Electrocardiogram Resting electrocardiogram showed sinus rhythm, with Lexiscan there is less than 1.[address] segment depression noted from the baseline EKG. The EKG portion of the Lexiscan is nondiagnostic. Cardiac Stress and Resting SPECT Images: Cardiac Stress and Resting SPECT images were obtained using technetium 99m Myoview 31.2 mCi stress and 10.41 mCi at rest. Gated SPECT for analysis of segmental wall motion and calculation of the ejection fraction also done. Prone images were also obtained. Cardiac stress and resting SPECT images show mild fixed defect in the inferior wall with normal contractility on the gated SPECT is likely secondary to soft tissue attenuation, no reversible ischemia seen. Computer derived ejection fraction is 54% with no regional wall motion abnormality, right ventricle is normal size and contractility. Conclusion: 1. The EKG portion of the Lexiscan is nondiagnostic. 2. No scintigraphic evidence of reversible ischemia seen, computer derived ejection fraction is 54% with no regional wall motion abnormality, right ventricle is normal size and contractility. 3. Likely normal Lexiscan Myoview study. Electronically signed by : Earl Lares MD 03/30/2021 15:42:06
== END ==
PROVIDERS: PCP Nurse Practitioner; Visit Provider Urology
DX: R06.00 Dyspnea, unspecified (principal); R07.9 Chest pain, unspecified; I20.9 Angina pectoris, unspecified; I25.118 Atherosclerotic heart disease of native coronary artery with other forms of angina pectoris; I11.9 Hypertensive heart disease without heart failure; E78.5 Hyperlipidemia, unspecified; I27.20 Pulmonary hypertension, unspecified; R60.0 Localized edema; Z86.73 Personal history of transient ischemic attack (TIA), and cerebral infarction without residual deficits
CPT/HCPCS: 78452; 93017; 93306; A9502; J2785

== ENCOUNTER → 2021-04-03 12:40 | Outpatient (CLI) | payer MEDICAID, SELFPAY ==
[2021-04-03 13:05] LABS: Basophils # 0.1 K/mm3 (0-0.2); Basophils % 1.6 % (0.1-2.0); Eosinophils % 13.7 % (0.1-12.0); Hematocrit 47.3 % (42.0-52.0); Lymphocytes # 2.8 K/mm3 (0.7-4.5); Lymphocytes % 40.1 % (10-50); Mean Corpuscular HGB Conc 31.7 g/dL (31.8-35.4); Mean Corpuscular Hemoglobin 32.9 pg (27.0-31.2); Mean Corpuscular Volume 103.8 fl (80-94); Mean Platelet Volume 7.7 fl (7.4-10.4); Monocytes # 0.6 K/mm3 (0.1-1.0); Monocytes % 8.4 % (1.7-9.3); Neutrophils # 2.5 K/mm3 (1.8-7.8); Neutrophils % 36.2 % (37.0-80.0); Platelet Count 209 K/mm3 (142-424); Red Blood Count 4.55 M/mm3 (4.60-6.20); Red Cell Distribution Width 14.2 % (11.5-17.5)
[2021-04-03 14:08] LABS: Anion Gap 12.3 mEq/L (5-15); Blood Urea Nitrogen 22 mg/dl (9-20); Calcium 9.4 mg/dl (8.4-10.2); Carbon Dioxide 28 mmol/L (22.0-30.0); Chloride 102 mmol/L (98-107); Estimated Glomerular Filt Rate 86 ml/min (>60); GFR (African American) 104 ML/MIN (>60); Glucose 153 mg/dl (74-100); Potassium 4.3 mmoL/L (3.5-5.1); Sodium 138 mmol/L (136-145)
== END ==
PROVIDERS: Visit Provider Nurse Practitioner Family
DX: Z01.812 Encounter for preprocedural laboratory examination (principal); Z11.52 Encounter for screening for COVID-19; R06.00 Dyspnea, unspecified; I20.0 Unstable angina; I21.4 Non-ST elevation (NSTEMI) myocardial infarction; I11.9 Hypertensive heart disease without heart failure; E78.5 Hyperlipidemia, unspecified; I25.118 Atherosclerotic heart disease of native coronary artery with other forms of angina pectoris; I27.20 Pulmonary hypertension, unspecified; R77.8 Other specified abnormalities of plasma proteins; R94.31 Abnormal electrocardiogram [ECG] [EKG]; Z86.73 Personal history of transient ischemic attack (TIA), and cerebral infarction without residual deficits; Z87.891 Personal history of nicotine dependence; I63.9 Cerebral infarction, unspecified; I10 Essential (primary) hypertension
CPT/HCPCS: 36415; 80048; 85025; C9803; U0003; U0005

== ENCOUNTER 2021-04-04 08:56 | Day surgery (SDC) | payer MEDICAID, SELFPAY ==
[2021-04-04] VITALS (13 sets, daily range): BP systolic 114–132; BP diastolic 52–87; PULSE 73–78; RESP 13–19; O2SAT 90–95; BMI 33.6
--- NOTE | 2021-04-04 07:08 | IR_ITS ---
APPROVED REPORT Patient Location: Outpatient PROCEDURES Left heart catheterization Left ventriculogram Selective coronary angiogram INDICATION Recent non-ST elevation myocardial infarction Informed consent was obtained prior to the procedure. COMPLICATIONS NONE Estimated Blood Loss: LESS THAN 10 ML TECHNIQUE One percent lidocaine used to anesthetize the right anterior aspect of the wrist. The right radial artery was accessed via the Seldinger technique. A 6 Spanish sheath was placed in the right radial artery. 2.5 mg of verapamil, 800 mcg of nitroglycerin, 1mg Lidocaine and 5000 U Heparin were given through the arterial sheath. The Poppa catheter was also used to perform left heart catheterization, left ventriculogram and selective coronary angiogram. At the end of the procedure the sheath was removed good hemostasis was achieved using Traclet band, patient was transferred to the postop holding area in stable condition. ANGIOGRAPHIC RESULTS The left main artery Normal The left anterior descending artery As proximal 10 to 20% luminal irregularities with mid vessel 10 to 20% luminal irregularities accompanied by a mild myocardial bridge involving the mid section The circumflex artery Codominant with mild 10% luminal irregularities The right coronary artery Codominant with a mid vessel 30% stenosis The SANCHEZ ventriculogram reveals Normal 65% The left ventricular end-diastolic pressure Moderate to severely elevated at 35 to 40 mmHg IMPRESSION Mild to moderate nonflow limiting coronary disease as described above Normal ejection fraction with severely elevated LVEDP consistent with diastolic dysfunction PLAN 1. Plavix 75 mg daily combined with aspirin 81 mg daily for 1 year. I suspect the right coronary artery likely experienced a plaque rupture which produced a non-ST elevation myocardial infarction. Data indicate dual antiplatelet therapy for 1 year is beneficial 2. LDL less than 55 to be achieved with high intensity statin 3. Treatment of diastolic dysfunction with diuretics 4. Weight loss 5. Avoidance of tobacco products 6. Rest of risk factor modification 7. Recommend sleep study Electronically signed by : Jonathan Morris MD 04/04/2021 11:08:47
== END 2021-04-04 14:04 | disposition home or self-care (01) ==
LOC: CATHLAB 08:58
PROVIDERS: PCP Nurse Practitioner; Visit Provider Internal Medicine
DX: I21.4 Non-ST elevation (NSTEMI) myocardial infarction (principal); E78.5 Hyperlipidemia, unspecified; I11.9 Hypertensive heart disease without heart failure; I25.118 Atherosclerotic heart disease of native coronary artery with other forms of angina pectoris; I27.20 Pulmonary hypertension, unspecified; R94.31 Abnormal electrocardiogram [ECG] [EKG]; Z87.891 Personal history of nicotine dependence
CPT/HCPCS: 93458; 99152; C1725; C1760; C1769; J1644; Q9967

== ENCOUNTER → 2021-04-20 12:51 | Outpatient (CLI) | payer MEDICAID, SELFPAY ==
--- NOTE | 2021-04-20 12:52 | CA_ITS ---
FINAL REPORT CLINICAL HISTORY: dizziness, fatigue, NARAYANAN, CAD, NSTEMI, pulHTN, HTN, HLD, abn EKG, ex smoker, hx CVA FINDINGS: The peak systolic velocity of the right common carotid artery is 114 cm/s. The peak systolic velocity of the right internal carotid artery is 78 cm/s and end diastolic velocity 22 cm/s. A small amount of plaque is present. The right external carotid artery is patent. The right vertebral artery is patent with antegrade flow. The peak systolic velocity of the left common carotid artery is 148 cm/s. The peak systolic velocity of the left internal carotid artery is 77 cm/s and end diastolic velocity 28 cm/s. A small amount of plaque is present. The left external carotid artery is patent.The left vertebral artery is patent with antegrade flow. IMPRESSION: Less than 50% bilateral carotid stenoses. Bilateral patent vertebral arteries with antegrade flow. If indicated, CTA or MRA could further evaluate. Reviewed, Interpreted and Dictated by Eric Whitley III, MD Transcribed by Franci Fernandez Authenticated by Eric Whitley III, MD on 04/20/2021 02:31:27 PM [facility]
== END ==
PROVIDERS: PCP Nurse Practitioner; Visit Provider Urology
DX: R42 Dizziness and giddiness (principal); R06.00 Dyspnea, unspecified; I25.10 Atherosclerotic heart disease of native coronary artery without angina pectoris; I11.9 Hypertensive heart disease without heart failure; E78.5 Hyperlipidemia, unspecified; I21.4 Non-ST elevation (NSTEMI) myocardial infarction; I27.20 Pulmonary hypertension, unspecified; R77.8 Other specified abnormalities of plasma proteins; R94.31 Abnormal electrocardiogram [ECG] [EKG]; Z86.73 Personal history of transient ischemic attack (TIA), and cerebral infarction without residual deficits; Z87.891 Personal history of nicotine dependence
CPT/HCPCS: 93880

== ENCOUNTER → 2021-05-08 11:35 | Outpatient (CLI) | payer MEDICAID, SELFPAY ==
[2021-05-08 12:36] LABS: Anion Gap 12.7 mEq/L (5-15); Blood Urea Nitrogen 28 mg/dl (9-20); Calcium 9.4 mg/dl (8.4-10.2); Carbon Dioxide 26 mmol/L (22.0-30.0); Chloride 106 mmol/L (98-107); Estimated Glomerular Filt Rate 56 ml/min (>60); GFR (African American) 68 ML/MIN (>60); Glucose 103 mg/dl (74-100); Potassium 4.7 mmoL/L (3.5-5.1); Sodium 140 mmol/L (136-145)
== END ==
PROVIDERS: PCP Nurse Practitioner; Visit Provider Urology
DX: R06.00 Dyspnea, unspecified (principal); I20.0 Unstable angina; I21.4 Non-ST elevation (NSTEMI) myocardial infarction; I11.9 Hypertensive heart disease without heart failure; I27.20 Pulmonary hypertension, unspecified; E78.5 Hyperlipidemia, unspecified; R77.8 Other specified abnormalities of plasma proteins; R94.31 Abnormal electrocardiogram [ECG] [EKG]; Z86.73 Personal history of transient ischemic attack (TIA), and cerebral infarction without residual deficits; Z87.891 Personal history of nicotine dependence
CPT/HCPCS: 36415; 80048

== ENCOUNTER → 2021-05-16 12:40 | Outpatient (CLI) | payer MEDICAID, SELFPAY | PROVIDERS: PCP Nurse Practitioner; Visit Provider Urology | DX: G47.33 Obstructive sleep apnea (adult) (pediatric) (principal); G47.9 Sleep disorder, unspecified; R40.0 Somnolence | CPT/HCPCS: 95806 ==

== ENCOUNTER → 2021-06-13 12:53 | Outpatient (CLI) | payer MEDICAID, SELFPAY ==
[2021-06-13 14:17] LABS: Chloride 107 mmol/L (98-107); Potassium 4.6 mmoL/L (3.5-5.1); Sodium 141 mmol/L (136-145)
[2021-06-13 14:20] LABS: Anion Gap 10.6 mEq/L (5-15); Blood Urea Nitrogen 22 mg/dl (9-20); Calcium 8.4 mg/dl (8.4-10.2); Carbon Dioxide 28 mmol/L (22.0-30.0); Estimated Glomerular Filt Rate 52 ml/min (>60); GFR (African American) 62 ML/MIN (>60); Glucose 105 mg/dl (74-100)
== END ==
PROVIDERS: Nurse Practitioner Family; Visit Provider Internal Medicine
DX: R06.00 Dyspnea, unspecified (principal); I25.118 Atherosclerotic heart disease of native coronary artery with other forms of angina pectoris; I21.4 Non-ST elevation (NSTEMI) myocardial infarction; I27.20 Pulmonary hypertension, unspecified; I11.9 Hypertensive heart disease without heart failure; E78.2 Mixed hyperlipidemia; G47.9 Sleep disorder, unspecified; R40.0 Somnolence; R94.31 Abnormal electrocardiogram [ECG] [EKG]; Z86.73 Personal history of transient ischemic attack (TIA), and cerebral infarction without residual deficits; Z87.891 Personal history of nicotine dependence
CPT/HCPCS: 36415; 80048

== ENCOUNTER → 2021-07-27 07:51 | Outpatient (CLI) | payer MEDICAID, SELFPAY ==
--- NOTE | 2021-07-27 09:16 | CT_ITS ---
FINAL REPORT TECHNIQUE: Axial images through the chest were performed by computed tomography before and after the administration of IV contrast. This study was performed with techniques to keep radiation doses as low as reasonably achievable, (ALARA). Individualized dose reduction techniques using automated exposure control or adjustment of mA and/or kV according to the patient's size were employed. CLINICAL HISTORY: dyspnea COMPARISON: August 20, 2019 FINDINGS: There is no axillary adenopathy. There is no hilar or mediastinal adenopathy. The heart size is normal. There is no pericardial or pleural effusion. Limited images of the upper abdomen demonstrate postoperative changes from cholecystectomy. On the lung window images, there are some old calcified granulomas. The lungs are otherwise clear. IMPRESSION: No acute process. Reviewed, Interpreted and Dictated by Dragan Palencia MD Transcribed by Alison Vidal Authenticated by Dragan Palencia MD on 07/27/2021 11:32:59 AM [facility]
[2021-07-27 09:56] LABS: Blood Urea Nitrogen 25 mg/dl (9-20); Estimated Glomerular Filt Rate 62 ml/min (>60); GFR (African American) 74 ML/MIN (>60)
== END ==
PROVIDERS: PCP Nurse Practitioner; Visit Provider Physician Assistant
DX: R06.00 Dyspnea, unspecified (principal); R07.9 Chest pain, unspecified; I25.10 Atherosclerotic heart disease of native coronary artery without angina pectoris; I21.4 Non-ST elevation (NSTEMI) myocardial infarction; I11.9 Hypertensive heart disease without heart failure; I27.20 Pulmonary hypertension, unspecified; E78.2 Mixed hyperlipidemia; R94.31 Abnormal electrocardiogram [ECG] [EKG]; Z86.73 Personal history of transient ischemic attack (TIA), and cerebral infarction without residual deficits; Z87.891 Personal history of nicotine dependence
CPT/HCPCS: 36415; 71270; 82565; 84520; 94060; 94726; 94729; Q9967

== ENCOUNTER → 2021-10-08 12:53 | Outpatient (CLI) | payer MEDICAID, SELFPAY ==
[2021-10-08 14:10] VITALS: PULSE 83; PULSE 87
== END ==
PROVIDERS: PCP Nurse Practitioner; Visit Provider Internal Medicine Pulmonary Disease
DX: R06.09 Other forms of dyspnea (principal)
CPT/HCPCS: 94060; 94618; 94640; 94727; 94729

== ENCOUNTER → 2021-12-27 14:10 | Outpatient (POV) | payer MEDICAID, SELFPAY ==
[2021-12-27 14:48] VITALS: BP 124/76; PULSE 67; RESP 18; TEMP 36.4; O2SAT 97; BMI 27.3
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
== END | disposition home or self-care (01) ==
PROVIDERS: PCP Nurse Practitioner; Visit Provider Nurse Practitioner Family
DX: M54.16 Radiculopathy, lumbar region (principal); M54.2 Cervicalgia; G89.4 Chronic pain syndrome
CPT/HCPCS: 99202; G0463

== ENCOUNTER → 2022-01-02 10:22 | Outpatient (CLI) | payer MEDICAID, SELFPAY ==
--- NOTE | 2022-01-02 10:26 | MR_ITS ---
FINAL REPORT CLINICAL HISTORY: LOWER BACK PAIN lower back pain with right leg pain pain when standing /. walkin g numbness since 2006 COMPARISON: 09/23/2019 FINDINGS: Multiplanar MR imaging of the lumbar spine was performed without contrast. On the sagittal T2-weighted images, disc degeneration is seen at multiple levels. There is mild retrolisthesis of L4 on 5. Schmorl's nodes are seen at multiple levels. There is a hemangioma of L2. There is no evidence of fracture. The conus has an unremarkable appearance. L1-2: An annular bulge is present. There is no significant canal stenosis or neural foraminal narrowing. L2-3: An annular bulge is present. There is no significant canal stenosis or neural foraminal narrowing. L3-4: An annular bulge is present with mild right neural foraminal narrowing. L4-5: An annular bulge is present. Facet arthropathy and osteophytes are present. There is moderate bilateral neural foraminal narrowing. L5-S1: An annular bulge is present. Facet arthropathy and osteophytes are present. There is moderate right and severe left neural foraminal narrowing. IMPRESSION: Multilevel degenerative disc disease and spondylosis as above. Findings are similar to prior. Reviewed, Interpreted and Dictated by Eric Whitley III, MD Transcribed by Franci Fernandez Authenticated and [facility]
== END ==
PROVIDERS: PCP Nurse Practitioner; Visit Provider Nurse Practitioner Family
DX: M54.50 Low back pain, unspecified (principal)
CPT/HCPCS: 72148; 76376

== ENCOUNTER → 2022-01-17 09:20 | Outpatient (POV) | payer MEDICAID, SELFPAY ==
[2022-01-17 09:29] VITALS: BP 102/71; PULSE 58; RESP 18; TEMP 36.7; O2SAT 96; BMI 29.5
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
== END ==
PROVIDERS: PCP Nurse Practitioner; Visit Provider Nurse Practitioner Family
DX: M51.36 Other intervertebral disc degeneration, lumbar region (principal); M47.816 Spondylosis without myelopathy or radiculopathy, lumbar region; M54.2 Cervicalgia; G89.29 Other chronic pain
CPT/HCPCS: 99212; G0463

== ENCOUNTER 2022-02-05 10:44 | Day surgery (SDC) | payer MEDICAID, SELFPAY ==
[2022-02-05 10:56] VITALS: BP 124/64; PULSE 70; RESP 18; TEMP 36.8; O2SAT 97; BMI 32.5
[2022-02-05 10:58] VITALS: BP 112/72; PULSE 66; RESP 18; O2SAT 97
[2022-02-05 11:18] VITALS: BP 106/61; PULSE 63; RESP 18; O2SAT 97
--- NOTE | 2022-02-05 11:51 | EXP.PAIN.PRO ---
Procedure Date: 02/05/22 Time: 11:00 Anesthesiologist:: Freddy Souza CRNA Complications:: None Pre-procedure Diagnosis:: Degenerative disc disease lumbar spine multilevels. Lumbar radiculopathy. Lumbar spondylosis Post-procedure Diagnosis:: Same. Indications for Procedure:: This patient is a pleasant 61-year-old male that comes our clinic today for lumbar epidural steroid injection at L4-5 level. Patient complains of low back pain as well as right hip and leg radicular symptoms. He rates his pain 6/10 Procedure Details:: Procedure: Lumbar epidural steroid injection under fluoroscopy Informed consent was obtained and the risks and benefits of the procedure were explained to the patient. The patient was taken to the procedure room and noninvasive monitors placed, including noninvasive blood pressure cuff and pulse oximeter. The back was viewed using C-arm Fluoroscopy and prepped using Chloraprep as a cleansing solution and the L4-L5 interspace was palpated. Skin and subcutaneous tissues were anesthetized using lidocaine 1.5% and a 25-gauge needle. After this, an 18-gauge Touhy epidural needle was placed into the L4-L5 interspace and advanced using fluoroscopic guidance and loss of resistance to air until the epidural space was encountered. After confirmation of needle placement in the epidural space, with dye, a solution containing normal saline, 3 mL and Depo-Medrol 80 mg were incrementally injected into the lumbar epidural space. The patient tolerated the procedure well with no complications. The patient was observed in the Pain Clinic and then discharged home neurologically intact. Plan and Disposition:: Patient was discharged without incident.
== END 2022-02-05 11:18 | disposition home or self-care (01) ==
LOC: SC.PAINP 10:45
PROVIDERS: PCP Nurse Practitioner; Visit Provider Nurse Anesthetist, Certified Registered
DX: M51.16 Intervertebral disc disorders with radiculopathy, lumbar region (principal); M47.26 Other spondylosis with radiculopathy, lumbar region
CPT/HCPCS: 62323; J1040

== ENCOUNTER → 2022-02-27 10:53 | Outpatient (POV) | payer MEDICAID, SELFPAY ==
[2022-02-27 11:14] VITALS: BP 140/77; PULSE 71; RESP 18; O2SAT 96; BMI 32.5
--- NOTE | 2022-02-27 11:22 | EXP.PAIN.SOA ---
[facility] Pain Management SOAP Note Subjective:: Patient is a pleasant 61-year-old male who presents today for follow-up of lumbar epidural steroid injection at L4-L5 on 02/05/2022. We are currently treating the patient for low back pain with lumbar radiculopathy symptoms, chronic pain, neck pain. Today the patient states that he had 0 relief following this injection. His pain is 8 out of 10 and he states it still continues to be in his low back that radiates into his right leg. Patient denies any new trauma or injury. Patient denies any change location or type of pain he experiences. Patient does describe this as a aching, throbbing sensation that is constant. Patient states it is often aggravated with increased activity or when he lays down. Patient states that this has been going on for over 15 years. He does have previous back surgery with Dr. Christie. Patient is also had a procedure following a [address] Parry on his neck. Patient has been to physical therapy however this did not improve his symptoms. Patient is also tried gabapentin with minimal improvement as well as 800 mg ibuprofen. Patient has had injective therapy in the past as well as using a TENS unit. He is not currently on any scheduled medications. His Piyush is [id number]. It has been reviewed and appropriate. Review of Systems: General: No recent weight changes, no fever, no sleep disturbances Respiratory: No cough, no shortness of air, no recurring pulmonary infections Cardiovascular/peripheral vascular: No chest pain, no palpitations, no edema, no shortness of breath Gastrointestinal: No new onset incontinence, normal bowel movements reported Genitourinary: No new onset incontinence Musculoskeletal: Low back pain, right leg pain Psychiatric: [Normal mood/affect] Neurological: [Denies weakness in extremities], [denies balance issues] Objective:: Physical Exam: General: Alert and oriented x3, no acute distress, pleasant and cooperative Lungs: Respirations even and unlabored, symmetrical chest expansion Eyes: PERRL Musculoskeletal: Flexion and extension of lumbar [spine] somewhat guarded secondary to pain, [antalgic gait noted] Neurological: Speech clear, no gross sensory deficit Assessment:: Degenerative disc disease of lumbar spine with lumbar radiculopathy symptoms, chronic pain, chronic neck pain Plan:: Patient continues to experience significant pain in his low back that radiates into his right leg. Patient did have limited range of motion of his lumbar spine during today's visit. Patient has tried and failed conservative therapy such as oral medications, topicals, heat and ice, physical therapy and at home stretching and exercise for longer than 6 weeks. I have discussed with the patient that he may benefit from a diagnostic right transforaminal epidural steroid injection. Risk and benefits were discussed with the patient. He would like to proceed forward with this plan of care. He is not on any blood thinners. I will also order the patient tizanidine 4 mg 3 times daily and provide a 2-week supply of this medication. Patient has been counseled to start this medication off at night first and instructed that it may cause drowsiness. We will schedule the patient for a right transforaminal epidural steroid injection at L4-L5 and L5-S1. Patient has been instructed to contact the clinic with any concerns before the next appointment. Dr. Rodriguez has reviewed this note and agrees with this plan of care. This note was dictated using voice recognition software and make contain errors or omissions. [facility] Medical History Abnormal cardiovascular stress test Abnormal EKG CAD (coronary artery disease) Crescendo angina Daytime somnolence Dizziness Dyspnea Elevated troponin Ex-smoker Headache HHD (hypertensive heart disease) History of CVA (cerebrovascular accident) HLD (hyperlipidemia) NSTEMI (non-ST elevated myocardial i
== END | disposition home or self-care (01) ==
PROVIDERS: PCP Nurse Practitioner; Visit Provider Nurse Practitioner Family
DX: M51.16 Intervertebral disc disorders with radiculopathy, lumbar region (principal); M54.2 Cervicalgia; G89.29 Other chronic pain
CPT/HCPCS: 99212; G0463

== ENCOUNTER 2022-03-05 09:54 | Day surgery (SDC) | payer MEDICAID, SELFPAY ==
[2022-03-05 10:18] VITALS: BP 97/60; PULSE 63; RESP 18; TEMP 36.7; O2SAT 97; BMI 29.5
[2022-03-05 10:35] VITALS: BP 113/74; PULSE 66; RESP 18; O2SAT 97
[2022-03-05 10:36] VITALS: BP 113/74; PULSE 66; RESP 18; O2SAT 97
[2022-03-05 10:42] VITALS: BP 113/70; PULSE 64; RESP 18; O2SAT 93
--- NOTE | 2022-03-05 14:14 | P.PCN_ITS ---
Procedure Date: 03/05/22 Time: 14:14 Anesthesiologist:: Freddy Souza CRNA Complications:: None Pre-procedure Diagnosis:: Degenerative disc disease lumbar spine multilevels. Lumbar foraminal stenosis right L4-5, L5-S1. Post-procedure Diagnosis:: Same Indications for Procedure:: Very pleasant 61-year-old male comes our clinic today for right L4-5, L5-S1 foraminal epidural injection. Patient has had this in the past with significant improvement. His main complaint is right hip and leg radicular symptoms to the foot. Procedure Details:: Details of the procedure were explained to the patient. The patient was taken the procedure room placed in the prone position. The area of the lumbar spine was cleansed using chlorhexidine as a cleansing solution. At this time using fluoroscopy guidance markers were placed on the right lateral border of the L4 and L5 vertebral body. The skin and subcutaneous tissue was anesthetized using 1% lidocaine and 25-gauge needle. At this time using a 22-gauge 3-1/2 inch spinal needle the right upper one third of the L4-5 foramen was accessed. The same was done at the right L5-S1 foramen. Needle positions were confirmed and a lateral view using fluoroscopy and contrast dye. At this time 1 cc of 1% lidocaine +20 mg of Depo-Medrol was injected at each level after negative aspiration. [place] were removed. Band-Aid applied. Patient tolerated the procedure without difficulty. There are no complications. Plan and Disposition:: Patient was discharged without incident.
== END 2022-03-05 10:42 | disposition home or self-care (01) ==
LOC: SC.PAINP 09:55
PROVIDERS: PCP Nurse Practitioner; Visit Provider Nurse Anesthetist, Certified Registered
DX: M51.16 Intervertebral disc disorders with radiculopathy, lumbar region (principal); G89.29 Other chronic pain; M48.061 Spinal stenosis, lumbar region without neurogenic claudication
CPT/HCPCS: 64483; 64484; J1030

== ENCOUNTER → 2022-03-26 09:15 | Outpatient (POV) | payer MEDICAID, SELFPAY ==
[2022-03-26 10:28] VITALS: BP 148/79; PULSE 71; RESP 18; O2SAT 98; BMI 32.5
--- NOTE | 2022-03-26 11:01 | EXP.PAIN.SOA ---
[facility] Pain Management SOAP Note Subjective:: Patient is a pleasant 62-year-old male who presents today for follow-up of right transforaminal epidural at L4-L5 and L5-S1 on 03/05/2022. We are currently treating the patient for degenerative disc disease of lumbar spine with lumbar radiculopathy symptoms, chronic pain, neck pain. Today he states he had 0 relief following this injection. He rates his pain today an 8 out of 10. Patient denies any new trauma or injury. Patient denies any change location or type of pain he experiences. Patient does state this is a aching, throbbing sensation in his low back that radiates primarily into his right leg. Patient has had previous back surgery by Dr. Christie in [place] as well as neck surgery by Dr. Parry in 2019. Patient has tried physical therapy in the past with minimal improvement. Patient states that he has had multiple injections in the past at a different facility that provided no relief as well. Patient is also used a TENS unit with minimal improvement. Patient states he has been prescribed Lortab 10 mg in the past that did provide significant relief. He does use ibuprofen 800 mg as needed to help with his symptoms. He is not on any scheduled medications. His Piyush is [phone]. Its been reviewed and appropriate. Review of Systems: General: No recent weight changes, no fever, no sleep disturbances Respiratory: No cough, no shortness of air, no recurring pulmonary infections Cardiovascular/peripheral vascular: No chest pain, no palpitations, no edema, no shortness of breath Gastrointestinal: No new onset incontinence, normal bowel movements reported Genitourinary: No new onset incontinence Musculoskeletal: Low back pain Psychiatric: [Normal mood/affect] Neurological: [Denies weakness in extremities], [denies balance issues] Objective:: Physical Exam: General: Alert and oriented x3, no acute distress, pleasant and cooperative Lungs: Respirations even and unlabored, symmetrical chest expansion Eyes: PERRL Musculoskeletal: Flexion and extension of lumbar [spine] somewhat guarded secondary to pain, [antalgic gait noted] Neurological: Speech clear, no gross sensory deficit Assessment:: Degenerative disc disease of lumbar spine with lumbar radiculopathy symptoms, chronic neck pain, chronic pain Plan:: Patient is experiencing significant pain in his low back with limited range of motion of his lumbar spine. I will order the patient diclofenac 75 mg twice daily and provide a 14-day supply of this medication. I have counseled the patient to take this medication with food to prevent GI upset as well as to stop all other NSAID products while using this medication. Patient denies any kidney or cardiac history. I will also order the patient a compounding cream at today's visit. Patient will return to clinic in 2 weeks for reevaluation of symptoms, medication refill if indicated and follow-up. Patient has been instructed to contact the clinic with any concerns before the next appointment. Dr. Rodriguez has reviewed this note and agrees with this plan of care. This note was dictated using voice recognition software and make contain errors or omissions. [facility] Disclaimer: The information contained in this section may have been updated after the patient was seen, as this information can be updated by other users. Medical History Abnormal cardiovascular stress test Abnormal EKG CAD (coronary artery disease) Crescendo angina Daytime somnolence Dizziness Dyspnea Elevated troponin Ex-smoker Headache HHD (hypertensive heart disease) History of CVA (cerebrovascular accident) HLD (hyperlipidemia) NSTEMI (non-ST elevated myocardial infarction) Pulmonary HTN Restless sleeper Family History Other No significant family history Social History Smoking St
== END | disposition home or self-care (01) ==
PROVIDERS: PCP Nurse Practitioner; Visit Provider Nurse Practitioner Family
DX: M51.16 Intervertebral disc disorders with radiculopathy, lumbar region (principal); M54.2 Cervicalgia; G89.29 Other chronic pain; Z79.899 Other long term (current) drug therapy
CPT/HCPCS: 99212; G0463

== ENCOUNTER → 2022-04-08 09:26 | Outpatient (POV) | payer MEDICAID, SELFPAY ==
[2022-04-08 09:36] VITALS: RESP 18; BMI 29.5
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
== END ==
PROVIDERS: Visit Provider Nurse Practitioner Family
DX: M51.16 Intervertebral disc disorders with radiculopathy, lumbar region (principal); G89.4 Chronic pain syndrome; M54.2 Cervicalgia
CPT/HCPCS: 99212; G0463

== ENCOUNTER → 2022-04-08 10:05 | Outpatient (CLI) | payer MEDICAID, SELFPAY ==
--- NOTE | 2022-04-08 10:12 | XR_ITS ---
FINAL REPORT CLINICAL HISTORY: RT HIP PAIN,FALL COMPARISON: CT dated August 06, 2020 FINDINGS: RIGHT HIP Two views of the right hip with an AP pelvis demonstrate no acute fracture or dislocation. There are mild degenerative changes. There is irregularity of the lateral border of the right iliac wing which may represent sequela of prior injury. The visualized bony structures are well aligned. No soft tissue abnormality is seen. IMPRESSION: Mild degenerative changes with no acute bony abnormality. Reviewed, Interpreted and Dictated by Eric Whitley III, MD Transcribed by Alison Vidal Authenticated and [facility]
== END ==
PROVIDERS: PCP Nurse Practitioner; Visit Provider Nurse Practitioner Family
DX: M25.551 Pain in right hip (principal); W19.XXXA Unspecified fall, initial encounter
CPT/HCPCS: 73502

== ENCOUNTER → 2022-08-14 13:07 | Outpatient (CLI) | payer MEDICAID, SELFPAY ==
[2022-08-14 22:14] LABS: Amphetamine/Metha Screen,Urine Negative ng/ml (<1000); Barbiturates Screen,Urine Negative ng/ml (<200)
[2022-08-14 22:15] LABS: Benzodiazepines Screen,Urine Negative ng/ml (<200); Cannabinoid Screen,Urine Negative ng/ml (<50)
[2022-08-14 22:16] LABS: Cocaine Screen,Urine Negative ng/ml (<300)
[2022-08-14 22:17] LABS: Methadone Screen,Urine Negative ng/ml (<300)
[2022-08-14 22:18] LABS: Opiate Screen,Urine Negative ng/ml (<300)
[2022-08-14 22:19] LABS: Phencyclidine Screen,Urine Negative ng/ml (<25)
== END ==
PROVIDERS: PCP Emergency Medicine; Visit Provider Emergency Medicine
DX: Z79.899 Other long term (current) drug therapy (principal)
CPT/HCPCS: 80305

== ENCOUNTER → 2022-08-14 23:12 | Outpatient (CLI) | payer MEDICAID, SELFPAY | PROVIDERS: PCP Emergency Medicine; Visit Provider Emergency Medicine | DX: Z79.899 Other long term (current) drug therapy (principal) ==

== ENCOUNTER → 2022-08-30 08:20 | Outpatient (CLI) | payer MEDICAID, SELFPAY ==
[2022-08-30 09:30] LABS: Chloride 101 mmol/L (98-107); Potassium 4.2 mmoL/L (3.5-5.1); Sodium 140 mmol/L (136-145)
[2022-08-30 09:33] LABS: Anion Gap 15.2 mEq/L (5-15); Blood Urea Nitrogen 25 mg/dl (9-20); Calcium 9.5 mg/dl (8.4-10.2); Carbon Dioxide 28 mmol/L (22.0-30.0); Estimated Glomerular Filt Rate 86 ml/min (>60); GFR (African American) 103 ML/MIN (>60); Glucose 109 mg/dl (74-100); Magnesium 2.1 mg/dl (1.6-2.3)
== END ==
PROVIDERS: PCP Emergency Medicine; Visit Provider Physician Assistant
DX: R06.09 Other forms of dyspnea (principal); I25.10 Atherosclerotic heart disease of native coronary artery without angina pectoris; I27.20 Pulmonary hypertension, unspecified; I11.9 Hypertensive heart disease without heart failure; E78.2 Mixed hyperlipidemia; G47.33 Obstructive sleep apnea (adult) (pediatric); R94.30 Abnormal result of cardiovascular function study, unspecified; Z86.73 Personal history of transient ischemic attack (TIA), and cerebral infarction without residual deficits; Z99.89 Dependence on other enabling machines and devices
CPT/HCPCS: 36415; 80048; 83735

== ENCOUNTER → 2022-09-04 14:25 | Outpatient (CLI) | payer MEDICAID, SELFPAY ==
[2022-09-04 20:57] LABS: Amphetamine/Metha Screen,Urine Negative ng/ml (<1000)
[2022-09-04 21:01] LABS: Barbiturates Screen,Urine Negative ng/ml (<200); Benzodiazepines Screen,Urine Negative ng/ml (<200)
[2022-09-04 21:02] LABS: Cannabinoid Screen,Urine Negative ng/ml (<50)
[2022-09-04 21:03] LABS: Cocaine Screen,Urine Negative ng/ml (<300); Methadone Screen,Urine Negative ng/ml (<300)
[2022-09-04 21:04] LABS: Opiate Screen,Urine Positive ng/ml (<300)
[2022-09-04 21:05] LABS: Phencyclidine Screen,Urine Negative ng/ml (<25)
== END ==
PROVIDERS: PCP Emergency Medicine; Visit Provider Emergency Medicine
DX: G89.4 Chronic pain syndrome (principal)
CPT/HCPCS: 80305

== ENCOUNTER → 2022-10-02 16:30 | Outpatient (CLI) | payer MEDICAID, SELFPAY ==
[2022-10-02 18:55] LABS: Alanine Aminotransferase 30 U/L (12-78); Albumin Level 4.8 g/dl (3.5-5.0); Anion Gap 17.8 mEq/L (5-15); Aspartate Amino Transferase 32 U/L (17-59); Bilirubin,Indirect 0.6 mg/dL (0.0-0.9); Bilirubin,Total 0.6 mg/dl (0.2-1.3); Bilirubin,Unconjugated 0.6 mg/dL (0.0-1.1); Blood Urea Nitrogen 20 mg/dl (9-20); Calcium 9.6 mg/dl (8.4-10.2); Carbon Dioxide 22 mmol/L (22.0-30.0); Chloride 102 mmol/L (98-107); Estimated Glomerular Filt Rate 76 ml/min (>60); GFR (African American) 92 ML/MIN (>60); Glucose 130 mg/dl (74-100); Magnesium 1.9 mg/dl (1.6-2.3); Potassium 3.8 mmoL/L (3.5-5.1); Sodium 138 mmol/L (136-145); Total Protein,Serum 7.1 g/dl (6.3-8.2)
[2022-10-02 18:56] LABS: Alkaline Phosphatase 85 U/L (38-126); Chol/HDL Ratio 3.6 (1-3.5); Cholesterol 167 mg/dl (140-200); HDL Cholesterol 47 mg/dl (40-60); Triglycerides 256 mg/dl (30-150); VLDL Cholesterol 51 mg/dL (0-40)
[2022-10-02 19:06] LABS: Direct LDL Cholesterol 79.69 mg/dL (100-129)
[2022-10-02 19:13] LABS: 25-OH Vitamin D, Total 42.2 ng/mL (30-100)
[2022-10-02 19:17] LABS: Basophils # 0.1 K/mm3 (0-0.2); Basophils % 0.7 % (0.1-2.0); Eosinophils # 0.1 K/mm3 (0.0-0.4); Eosinophils % 0.7 % (0.1-12.0); Hematocrit 44.7 % (42.0-52.0); Hemoglobin 14.7 g/dL (14.1-18.0); Lymphocytes # 3.5 K/mm3 (0.7-4.5); Lymphocytes % 45.6 % (10-50); Mean Corpuscular HGB Conc 32.9 g/dL (31.8-35.4); Mean Corpuscular Hemoglobin 30.9 pg (27.0-31.2); Mean Corpuscular Volume 93.7 fl (80-94); Mean Platelet Volume 8.2 fl (7.4-10.4); Monocytes # 0.7 K/mm3 (0.1-1.0); Monocytes % 8.9 % (1.7-9.3); Neutrophils # 3.4 K/mm3 (1.8-7.8); Neutrophils % 44.2 % (37.0-80.0); Platelet Count 257 K/mm3 (142-424); Red Blood Count 4.76 M/mm3 (4.60-6.20); Red Cell Distribution Width 14.8 % (11.5-17.5); White Blood Count 7.7 K/mm3 (4.8-10.8)
[2022-10-02 19:24] LABS: Amphetamine/Metha Screen,Urine Negative ng/ml (<1000); Barbiturates Screen,Urine Negative ng/ml (<200)
[2022-10-02 19:25] LABS: Benzodiazepines Screen,Urine Negative ng/ml (<200); Thyroid Stimulating Hormone 3.21 uIU/mL (0.465-4.68)
[2022-10-02 19:26] LABS: Cannabinoid Screen,Urine Negative ng/ml (<50); Methadone Screen,Urine Negative ng/ml (<300)
[2022-10-02 19:27] LABS: Cocaine Screen,Urine Negative ng/ml (<300)
[2022-10-02 19:28] LABS: Opiate Screen,Urine Negative ng/ml (<300)
[2022-10-02 19:29] LABS: Phencyclidine Screen,Urine Negative ng/ml (<25)
== END ==
PROVIDERS: Nurse Practitioner; PCP Emergency Medicine; Visit Provider Emergency Medicine
DX: R06.09 Other forms of dyspnea (principal); I25.10 Atherosclerotic heart disease of native coronary artery without angina pectoris; I11.9 Hypertensive heart disease without heart failure; I27.20 Pulmonary hypertension, unspecified; E78.2 Mixed hyperlipidemia; R94.30 Abnormal result of cardiovascular function study, unspecified; R53.83 Other fatigue; G47.33 Obstructive sleep apnea (adult) (pediatric); Z86.73 Personal history of transient ischemic attack (TIA), and cerebral infarction without residual deficits; Z99.89 Dependence on other enabling machines and devices; Z79.899 Other long term (current) drug therapy; E66.9 Obesity, unspecified; Z68.31 Body mass index [BMI] 31.0-31.9, adult
CPT/HCPCS: 80048; 80061; 80076; 80305; 82306; 83735; 84439; 84443; 85025

== ENCOUNTER → 2022-11-29 12:00 | Outpatient (CLI) | payer MEDICAID, SELFPAY ==
[2022-11-29 19:54] LABS: Amphetamine/Metha Screen,Urine Negative ng/ml (<1000)
[2022-11-29 19:56] LABS: Barbiturates Screen,Urine Negative ng/ml (<200); Cannabinoid Screen,Urine Negative ng/ml (<50)
[2022-11-29 19:57] LABS: Benzodiazepines Screen,Urine Negative ng/ml (<200)
[2022-11-29 19:58] LABS: Cocaine Screen,Urine Negative ng/ml (<300); Opiate Screen,Urine Positive ng/ml (<300)
[2022-11-29 19:59] LABS: Methadone Screen,Urine Negative ng/ml (<300)
[2022-11-29 20:00] LABS: Phencyclidine Screen,Urine Negative ng/ml (<25)
== END ==
PROVIDERS: PCP Emergency Medicine; Visit Provider Emergency Medicine
DX: M54.2 Cervicalgia (principal); Z79.899 Other long term (current) drug therapy
CPT/HCPCS: 80305

== ENCOUNTER → 2022-12-11 07:02 | Outpatient (CLI) | payer MEDICAID, SELFPAY ==
--- NOTE | 2022-12-11 | CA_ITS ---
APPROVED REPORT Exam: Pharmacologic Technologist: Juliana Vigil Ht: 5 ft 9 in Wt: 217 lbs BSA: 2.14 m2 HR: 61 bpm BP: 124/85 mmHg Rhythm: NSR Indications: Dyspnea, Hypertension, Chest pain Medical History Medications: Aspirin,,,,, Metoprolol,,,,, Gabapentin,,,,, Pantoprazole,,,,, Atorvastatin,,,,, CloPIdogrel,,,,, Diclofenac,,,,, SpirOnolactone,,,,, Mirtazapine,,,,, SilDENAFIL,,,,, Lidocain patch,,,,, Hydrocodone-Acetaminophen,,,,, Stress Test Details Test: LEXISCAN HR Resting HR: 62 bpm Max Heart Rate (APMHR): 158 bpm Max HR Achieved: 87 bpm Target HR (85% APMHR): 134 bpm % of APMHR: 55 Recovery HR: 75 bpm BP Resting BP: 124.0/85.0 mmHg Max BP: 133.0/83.0 mmHg Recovery BP: 130.0/84.0 mmHg ECG Resting ECG: Normal sinus rhythm, Non-specific IVCD, PVC ST Change: No significant ST changes Arrhythmia: PVCs Clinical Exercise duration: 04:00 min Highest Stage Achieved: Stress ECG Conclusion Symptoms: Shortness of air, mild stomach and head discomfort. No chest pain. Arrhythmias/Ectopy: Occasional PVC ST-T Changes: No significant ST changes Conclusion: Unremarkable Lexiscan stress. Myoview images reported separately. Test Summary REST . . . . . . . Resting REST 04:02 . . 62 . 124/ 85 . . Stage 1 . . . . . . . Myoview Injected Stage 1 01:00 . . 72 . . . . Stage 2 01:00 . . 87 . 117/ 81 . . Stage 3 01:00 . . 84 . 121/ 83 . . Stage 4 01:00 . . 79 . 133/ 83 . Stop exercise at 04:00 RECOVERY 01:00 . . 82 . . . . RECOVERY 02:00 . . 78 . 126/ 87 . . RECOVERY 03:00 . . 74 . 126/ 87 . . RECOVERY 03:20 . . 75 . 130/ 84 . . Electronically signed by : Lisha Guthrie MD 12/21/2022 19:16:04
--- NOTE | 2022-12-11 07:08 | NM_ITS ---
APPROVED REPORT Exam: Nuclear Stress Test Indication: chest pain..soa..fatigue..high BP..high cholesterol..family hx Patient Location: Outpatient Stress Tech: Juliana Vigil [place] Tech:RESHMA Medina RT(R)(N) Ht: 5 ft 9 in Wt: 214 lbs HR: 62 bpm BP: 124/85 mmHg BSA: 2.13 m2 Rhythm: NSR TID: 1.24 BMI: 31.5 History: chest pain..soa..fatigue..high BP..high cholesterol..family hx Procedure: Patient received 0.4 mg of intravenous Lexiscan, resting heart rate 62 bpm, resting blood pressure 124/85 mmHg, with Lexiscan maximum heart rate achieved was 87 bpm which is 85 % of the maximum predicted heart rate and blood pressure was 133/83 mmHg. With Lexiscan, patient denied any complaint of chest pain. Cardiac Stress and Resting SPECT Images: Cardiac Stress and Resting SPECT images were obtained using technetium 99m Myoview 32.7 mCi stress and 10.30 mCi at rest. Raw images demonstrate significant soft tissue overlap with cardiac borders. This may affect the diagnostic interpretation of the study findings. Resting and stress imaging in supine position demonstrate a medium sized, mild, fixed perfusion defect in the anterior, as well as in the inferior, LV wall. This is no longer visualized with prone stress imaging. Findings are suggestive of soft tissue attenuation. There is increased transient ischemic dilatation ratio (TID 1.24), suggestive of possible multivessel disease or balanced ischemia. Gated imaging demonstrates low-normal global and regional LV systolic function. LVEF is calculated at 50%. Conclusion: Raw images demonstrate significant soft tissue overlap with cardiac borders. This may affect the diagnostic interpretation of the study findings. Soft tissue attenuation is present. No definite fixed or reversible focal perfusion defects, but there is increased transient ischemic dilatation ratio (TID 1.24) that is suggestive of possible multivessel disease or balanced ischemia. Gated imaging demonstrates low-normal global and regional LV systolic function. LVEF is calculated at 50%. Electronically signed by : Lisha Guthrie MD 12/21/2022 19:20:31
== END ==
PROVIDERS: PCP Emergency Medicine; Visit Provider Emergency Medicine
DX: I11.9 Hypertensive heart disease without heart failure; R06.09 Other forms of dyspnea; R94.31 Abnormal electrocardiogram [ECG] [EKG]
CPT/HCPCS: 78452; 93017; A9502; J2785

== ENCOUNTER → 2022-12-25 08:05 | Outpatient (CLI) | payer MEDICAID, SELFPAY ==
--- NOTE | 2022-12-25 08:14 | CA_ITS ---
APPROVED REPORT EXAM: Comprehensive 2D, Doppler, and color-flow Echocardiogram Documentation Designer: Francine Velez, GENNY, RVS Ht: 5 ft 9 in Wt: 217lbs BSA: 2.14 BP: 128/66 mmHg Rhythm: Irregular Indications: HTN, Abn EKG, CVA, COPD, Ex-smoker, CP, SOB 2D Dimensions Aortic Root 3.47 cm LA Volume 69.10 mL Left Atrium 3.69 cm LA Volume Index 31.60 mL/m2 (M/F) 16-34 LVOT 2.01 cm (M/F) 1.5-2.5 M-Mode Dimensions RVDd 3.22 cm (0.9-2.6) LA Diam 3.36 cm (1.9-4.0) LVDd 5.51 cm (3.5-5.7) Ao Diam 3.73 cm (2.0-3.7) LVDs 3.62 cm (3.5-5.7) IVSd 1.01 cm (0.6-1.1) PWd 1.13 cm (0.6-1.1) EF (Teich) 62.70% EPSs 0.52 cm FS 34.30% EDV (Teich) 148.00 mL TAPSE 1.64 (<1.7) ESV (Teich) 55.20 mL LV Diastology E Decel Time 265.00 (160-240 msec) E/A Ratio 0.66 MED E' 5.00 (< 7 cm/sec) MED A' 10.40 cm/s E'/MED E' Ratio 10.52 (>14) LAT E' 7.30 (<10 cm/sec) LAT A' 10.30 cm/s E/LAT E' Ratio 7.21 (>14) Aortic Valve LVOT Max 98.00 (70-110 cm/s) LVOT VTI 19.59 cm AoV Peak Abhinav. 108.00 (50-130 cm/s) AI PHT 607.00 ms AO Peak GR. 4.70 mmHg AO Mean GR. 2.30 (<5 mmHg) AO VTI 21.70 (18-25 cm) JONATHAN (VTI) 2.86 (2.5-4.5 cm2) Mitral Valve MV A Velocity 80.00 (40-130 cm/s) E/A Ratio 0.66 MV Decel. Time 265.00 (160-240 ms) Pulmonary Valve PV Peak Velocity 91.00 (50-150 cm/s) IL End VMAX 162.00 cm/s Tricuspid Valve TR P. Velocity 222.00 cm/s RAP Estimate 10.00 mmHg RVSP 29.70 mmHg Left Ventricle The left ventricle is normal size. The left ventricular systolic function is normal. The left ventricular ejection fraction is within the normal range. There is normal left ventricular wall thickness. There is normal LV segmental wall motion. The left ventricular diastolic function is normal. LVEF is 55-60%. Right Ventricle The right ventricle is normal size. The right ventricular systolic function is normal. Atria The left atrium size is normal. The right atrium size is normal. There is no Doppler evidence of interatrial shunt. Aortic Valve The aortic valve opens well. There is no aortic valvular stenosis. Trace aortic regurgitation. Mitral Valve The mitral valve is normal in structure. No evidence of mitral valve stenosis. Trace mitral regurgitation. Tricuspid Valve The tricuspid valve leaflets are thin and pliable. Mild tricuspid regurgitation. RVSP is 15-20 mmHg. Pulmonic Valve The pulmonary valve is normal in structure. Trace pulmonic regurgitation. Great Vessels The aortic root is normal in size. The ascending aorta is not well visualized. IVC is normal in size and collapses >50% with inspiration. Pericardium There is no pericardial effusion. Other Information Study Quality: Fair Conclusion Normal biventricular systolic function. No significant valvular stenosis or regurgitation. Electronically signed by : Lisha Guthrie MD 12/27/2022 19:13:57
== END ==
PROVIDERS: PCP Emergency Medicine; Visit Provider Emergency Medicine
DX: R06.00 Dyspnea, unspecified (principal); I11.9 Hypertensive heart disease without heart failure
CPT/HCPCS: 93306

== ENCOUNTER 2023-01-02 07:50 | Day surgery (SDC) | payer MEDICAID, SELFPAY ==
[2023-01-02] VITALS (13 sets, daily range): BP systolic 97–136; BP diastolic 51–94; PULSE 56–74; RESP 16–20; TEMP 36.6; O2SAT 92–99; BMI 31.6
--- NOTE | 2023-01-02 07:21 | IR_ITS ---
APPROVED REPORT Patient Location: Outpatient Fryer Line Helper: RESHMA Gonzalez RT (R) PROCEDURES Left heart catheterization Left ventriculogram Selective coronary angiogram Drug-eluting stent deployment to the proximal and mid LAD Drug-eluting stent deployment to a large second diagonal artery INDICATION High risk abnormal Myoview, Accelerated angina pectoris, Coronary disease Informed consent was obtained prior to the procedure. COMPLICATIONS None Estimated Blood Loss: Less than 10 mls TECHNIQUE One percent lidocaine used to anesthetize the right anterior aspect of the wrist. The right radial artery was accessed via the Seldinger technique. A 6 Citizen Of [place] sheath was placed in the right radial artery. 2.5 mg of Verapamil, 800 mcg of nitroglycerin, 1mg Lidocaine and 5000 U Heparin were given through the arterial sheath. The papa catheter was also used to perform selective coronary angiography. At the end the diagnostic angiogram therapeutic heparin was administered giving a therapeutic ACT and the guide catheter was placed in left main artery followed by 2 Choice PT extra-support wires being placed 1 down the LAD went into the second diagonal artery. A 2.5 x 12 mm noncompliant balloon was deployed in the proximal and ostial segment of the diagonal artery. Following this a 3 mm x 22 mm Gal[place] frontier stent was deployed at 20 zelda in the ostial proximal segment of the diagonal artery. MICHAEL-3 flow was restored 1 MICHAEL I flow was present at the beginning the procedure. Following this an additional 2.5 mm compliant balloon was used to open the struts going into the LAD and a 4 mm x 38 mm [place] frontier stent was placed in the proximal to mid LAD at 18 zelda. An additional 3.5 x 12 mm [place] frontier stent was placed distally to the for stent deployed at 18 zelda and the balloon was brought back and deployed at 22 zelda to dilate and mesh the 2 stents. Following this an additional 3 mm x 12 mm balloon was deployed in the ostial proximal segment of the second diagonal artery to open the struts. An additional 4 mm x 12 mm compliant balloon was deployed at 18 zelda in the ostial proximal segment of the LAD. Intracoronary nitroglycerin was administered. At the end of the procedure MICHAEL-3 flow was present down the LAD and diagonal artery. MICHAEL I flow was present at the beginning of the procedure down the first diagonal artery. The procedure the apparatus was removed the sheath was removed and hemostasis was achieved using TR banding patient was transferred to the postop putting in stable condition ANGIOGRAPHIC RESULTS The left main artery Normal The left anterior descending artery Has a proximal 40% stenosis followed by an additional proximal 40% stenosis followed by 60% stenosis distal to the first septal fire adjuster. First diagonal artery is small to medium in size and patent while the second diagonal artery is much larger and has an ostial proximal 90% stenosis accompanied by MICHAEL I flow. The circumflex artery Is nondominant gives rise to a small to medium sized ramus intermedius which has proximal 20% stenoses. The large nondominant circumflex artery has proximal and mid vessel 10 to 20% stenoses The right coronary artery Is a dominant vessel and has mid vessel 40 to 50% stenosis with distal 30% stenoses The SANCHEZ ventriculogram reveals Not performed The left ventricular end-diastolic pressure Not measured IMPRESSION Severe disease in the large second diagonal artery accompanied by MICHAEL I flow which was the likely culprit for patient's accelerated angina Successful reconstruction of the proximal to mid LAD with bifurcating stent into the large diagonal artery reducing all disease to less than 10% Persistent moderate disease in the mid dominant right coronary PLAN 1. Effient 1
[2023-01-02 08:44] LABS: Basophils # 0.1 K/mm3 (0-0.2); Basophils % 0.9 % (0.1-2.0); Eosinophils # 0.1 K/mm3 (0.0-0.4); Eosinophils % 1.8 % (0.1-12.0); Hemoglobin 14.5 g/dL (14.1-18.0); Lymphocytes # 3.3 K/mm3 (0.7-4.5); Lymphocytes % 47.5 % (10-50); Mean Corpuscular HGB Conc 32.9 g/dL (31.8-35.4); Mean Corpuscular Hemoglobin 32.3 pg (27.0-31.2); Mean Corpuscular Volume 98.4 fl (80-94); Mean Platelet Volume 7.5 fl (7.4-10.4); Monocytes # 0.6 K/mm3 (0.1-1.0); Monocytes % 9.1 % (1.7-9.3); Neutrophils # 2.8 K/mm3 (1.8-7.8); Neutrophils % 40.8 % (37.0-80.0); Platelet Count 268 K/mm3 (142-424); Red Blood Count 4.47 M/mm3 (4.60-6.20); Red Cell Distribution Width 13.6 % (11.5-17.5)
[2023-01-02 08:58] LABS: Chloride 104 mmol/L (98-107); Sodium 139 mmol/L (136-145)
[2023-01-02 08:59] LABS: Potassium 4.5 mmoL/L (3.5-5.1)
[2023-01-02 09:01] LABS: Blood Urea Nitrogen 18 mg/dl (9-20); Creatinine Clearance Estimated 96 mL/min (50-200); Estimated Glomerular Filt Rate 68 ml/min (>60); GFR (African American) 82 ML/MIN (>60)
[2023-01-02 09:02] LABS: Anion Gap 15.5 mEq/L (5-15); Calcium 8.8 mg/dl (8.4-10.2); Carbon Dioxide 24 mmol/L (22.0-30.0); Glucose 107 mg/dl (74-100)
--- NOTE | 2023-01-02 11:37 | SUR.PHASEII ---
Patient taken to post op for recovery, report to Thania fernández RN
[2023-01-02 11:49] LABS: CATHL Activated Clotting Time > 400 SEC (74-125)
--- NOTE | 2023-01-02 14:22 | P.CONPHA_ITS ---
PHA Access Director Discharge Med Radio Television Technical Director: Eric Laguna has received discharge medication counseling on the following medications: EFFIENT 10 MG DAILY ATORVASTATIN [address] 81 MG DAILY METOPROLOL TARTRATE 25 MG BID NO BETY/ARB PER MD.
== END 2023-01-02 14:30 | disposition home or self-care (01) ==
PROVIDERS: PCP Emergency Medicine; Visit Provider Internal Medicine
DX: I25.118 Atherosclerotic heart disease of native coronary artery with other forms of angina pectoris (principal); R94.31 Abnormal electrocardiogram [ECG] [EKG]; Z79.899 Other long term (current) drug therapy; Z87.891 Personal history of nicotine dependence; J44.9 Chronic obstructive pulmonary disease, unspecified; I65.23 Occlusion and stenosis of bilateral carotid arteries; I27.20 Pulmonary hypertension, unspecified; I11.9 Hypertensive heart disease without heart failure; E78.5 Hyperlipidemia, unspecified; I25.2 Old myocardial infarction
CPT/HCPCS: 80048; 85025; 85347; 92928; 92929; 93458; 99152; 99153; C1725; C1760; C1769; C1876; C9600; C9601; J1644; Q9967

== ENCOUNTER 2023-01-13 12:56 | Outpatient (RCR) | payer MEDICAID, SELFPAY | END 2023-03-30 14:00 | disposition home or self-care (01) | LOC: PT 12:56 | PROVIDERS: Visit Provider Internal Medicine | DX: I25.10 Atherosclerotic heart disease of native coronary artery without angina pectoris (principal); Z95.5 Presence of coronary angioplasty implant and graft ==

== ENCOUNTER → 2023-01-28 14:44 | Outpatient (CLI) | payer MEDICAID, SELFPAY ==
[2023-01-28 15:23] LABS: Amphetamine/Metha Screen,Urine Negative ng/ml (<1000); Barbiturates Screen,Urine Negative ng/ml (<200)
[2023-01-28 15:24] LABS: Benzodiazepines Screen,Urine Negative ng/ml (<200); Cannabinoid Screen,Urine Negative ng/ml (<50)
[2023-01-28 15:25] LABS: Cocaine Screen,Urine Negative ng/ml (<300)
[2023-01-28 15:26] LABS: Methadone Screen,Urine Negative ng/ml (<300); Opiate Screen,Urine Positive ng/ml (<300)
[2023-01-28 15:27] LABS: Phencyclidine Screen,Urine Negative ng/ml (<25)
== END ==
PROVIDERS: PCP Emergency Medicine; Visit Provider Emergency Medicine
DX: G89.29 Other chronic pain (principal)
CPT/HCPCS: 80305

== ENCOUNTER → 2023-02-28 08:00 | Outpatient (CLI) | payer MEDICAID, SELFPAY ==
[2023-02-28 16:00] LABS: Amphetamine/Metha Screen,Urine Negative ng/ml (<1000)
[2023-02-28 16:01] LABS: Barbiturates Screen,Urine Negative ng/ml (<200); Benzodiazepines Screen,Urine Negative ng/ml (<200)
[2023-02-28 16:02] LABS: Cannabinoid Screen,Urine Negative ng/ml (<50)
[2023-02-28 16:03] LABS: Cocaine Screen,Urine Negative ng/ml (<300); Methadone Screen,Urine Negative ng/ml (<300)
[2023-02-28 16:04] LABS: Opiate Screen,Urine Positive ng/ml (<300); Phencyclidine Screen,Urine Negative ng/ml (<25)
== END ==
PROVIDERS: PCP Nurse Practitioner Family; Visit Provider Nurse Practitioner Family
DX: G89.29 Other chronic pain (principal); Z79.899 Other long term (current) drug therapy
CPT/HCPCS: 80305

== ENCOUNTER → 2023-03-04 11:15 | Outpatient (CLI) | payer MEDICAID, SELFPAY ==
--- NOTE | 2023-03-04 11:16 | NM_ITS ---
APPROVED REPORT Exam: Nuclear Stress Test Indication: chest pain..soa Patient Location: Outpatient Stress Tech: Juliana Vigil [place] Tech:RESHMA Medina RT(R)(N) Ht: 5 ft 10 in Wt: 195 lbs HR: 72 bpm BP: 141/87 mmHg BSA: 2.07 m2 TID: 1.19 BMI: 27.9 History: chest pain..soa Procedure: Patient received 0.4 mg of intravenous Lexiscan, resting heart rate 72 bpm, resting blood pressure 141/87 mmHg, with Lexiscan maximum heart rate achieved was 101 bpm which is 85 % of the maximum predicted heart rate and blood pressure was 147/82 mmHg. With Lexiscan, patient denied any complaint of chest pain. Cardiac Stress and Resting SPECT Images: Cardiac Stress and Resting SPECT images were obtained using technetium 99m Myoview 32.8 mCi stress and 10.27 mCi at rest. Technically difficult study.Raw images demonstrate significant soft tissue overlap with the cardiac borders. This may affect the diagnostic interpretation of the study findings. Resting and stress imaging in supine and prone positions demonstrate a large sized, moderate, fixed perfusion defect in the inferior LV wall. There is also medium sized, moderate, partially reversible perfusion defect in the mid to distal anterior LV wall. Gated imaging demonstrates low normal global LV systolic function. There is mild hypokinesis of the basal inferior LV wall. LVEF is calculated at 53%. Conclusion: Large sized, moderate, fixed perfusion defect in the inferior LV wall. There is also medium sized, moderate, partially reversible perfusion defect in the mid to distal anterior LV wall. Findings may be due to artifact, but true perfusion defect cannot be entirely ruled out. Gated imaging demonstrates low normal global LV systolic function. There is mild hypokinesis of the basal inferior LV wall. LVEF is calculated at 53%. As this was a technically limited study, further evaluation for ischemia with alternative modalities is recommended, if clinically appropriate. Electronically signed by : Lisha Guthrie MD 03/06/2023 14:58:30
--- NOTE | 2023-03-04 13:20 | CA_ITS ---
APPROVED REPORT Exam: Pharmacologic Technologist: Juliana Vigil Ht: 5 ft 9 in Wt: 216 lbs BSA: 2.13 m2 HR: 72 bpm BP: 141/87 mmHg Rhythm: NSR Indications: R94.31, I20.89 Medical History Medications: Isosorbide,,,,, Aspirin,,,,, Metoprolol,,,,, Gabapentin,,,,, Pantoprazole,,,,, Atorvastatin,,,,, SpirOnolactone,,,,, Mirtazapine,,,,, Divalproex,,,,, SilDENAFIL,,,,, Prasugel,,,,, Hydrocodone-Acetaminophen,,,,, Stress Test Details Test: LEXISCAN HR Resting HR: 72 bpm Max Heart Rate (APMHR): 158 bpm Max HR Achieved: 101 bpm Target HR (85% APMHR): 134 bpm % of APMHR: 64 Recovery HR: 82 bpm BP Resting BP: 141.0/87.0 mmHg Max BP: 147.0/82.0 mmHg Recovery BP: 143.0/88.0 mmHg ECG Resting ECG: Sinus rhythm, T wave changes in inferior and lateral leads Stress ECG: No significant ST changes Arrhythmia: PACs Clinical Exercise duration: 04:05 min Highest Stage Achieved: Exercise capacity: 1.0 METs Stress ECG Conclusion Symptoms: Chest pain, Dyspnea, Headache Arrhythmias/Ectopy: PAC ST-T Changes: No significant ST changes Conclusion: EKG portion of test unremarkable due to Lexiscan infusion. Test Summary REST . . . . . . . Resting REST 01:50 . . 72 . 141/ 87 . . Stage 1 . . . . . . . Myoview Injected Stage 1 01:00 . . 88 . . . . Stage 2 01:00 . . 100 . . . . Stage 3 01:00 . . 96 . 147/ 82 . . Stage 4 01:00 . . 88 . . . . Stage 4 01:05 . . 89 . . . Stop exercise at 04:05 RECOVERY 01:00 . . 91 . 143/ 92 . . RECOVERY 02:00 . . 85 . 143/ 92 . . RECOVERY 03:00 . . 87 . 142/ 86 . . RECOVERY 04:00 . . 86 . 140/ 94 . . RECOVERY 05:00 . . 85 . 143/ 88 . . RECOVERY 06:00 . . 81 . 143/ 88 . . RECOVERY 06:02 . . 81 . 143/ 88 . . Electronically signed by : Lisha Guthrie MD 03/06/2023 14:55:27
== END ==
LOC: RAD 11:16
PROVIDERS: PCP Nurse Practitioner Family; Visit Provider Physician Assistant
DX: R06.00 Dyspnea, unspecified (principal); I21.4 Non-ST elevation (NSTEMI) myocardial infarction; I11.9 Hypertensive heart disease without heart failure; E78.2 Mixed hyperlipidemia; R94.30 Abnormal result of cardiovascular function study, unspecified; R94.31 Abnormal electrocardiogram [ECG] [EKG]
CPT/HCPCS: 78452; 93017; 93018; A9502; J2785

== ENCOUNTER 2023-03-27 08:13 | Day surgery (SDC) | payer MEDICAID, SELFPAY ==
[2023-03-27] VITALS (14 sets, daily range): BP systolic 102–143; BP diastolic 51–90; PULSE 62–77; RESP 17–20; TEMP 37; O2SAT 91–96; BMI 32.1
--- NOTE | 2023-03-27 07:15 | IR_ITS ---
APPROVED REPORT Patient Location: Outpatient Internet Programmer: RESHMA Herman RT (R) PROCEDURES Left heart catheterization Left ventriculogram Selective coronary angiogram Drug-eluting stent deployment to the mid and distal dominant right coronary INDICATION Accelerated angina pectoris, Abnormal Myoview, Coronary artery disease Informed consent was obtained prior to the procedure. COMPLICATIONS NONE Estimated Blood Loss: LESS THAN 10 ML TECHNIQUE One percent lidocaine used to anesthetize the right anterior aspect of the wrist. The right radial artery was accessed via the Seldinger technique. A 6 [place] sheath was placed in the right radial artery. 2.5 mg of Verapamil, 800 mcg of nitroglycerin, 1mg Lidocaine and 5000 U Heparin were given through the arterial sheath. The papa catheter was also used to perform selective coronary angiogram. At the end of the diagnostic procedure therapeutic heparin was administered giving a therapeutic ACT and the guide catheter was placed in the right coronary artery followed by Choice PT extra-support wire being placed distally. A 4 mm x 22 mm [place] frontier stent was deployed at 24 zelda reducing the stenosis. The wire was pulled back and there was a stepdown that was not angiographically acceptable therefore a choice floppy wire was placed distally and an additional 4 mm x 12 mm Galindo frontier stent was placed distal to the for stent yet still overlapping the stent and deployed at 14 zelda. The balloon was brought back and deployed at 24 zelda to post dilate and mesh the 2 stents. MICHAEL-3 flow was present before and after the procedure. At the end of the procedure the apparatus was removed the sheath was removed and hemostasis was achieved using TR banding patient was transferred to the postop putting in stable condition ANGIOGRAPHIC RESULTS The left main artery Normal The left anterior descending artery Initially had MICHAEL II flow however with subsequent injections MICHAEL-3 flow was present. There is a stent in the proximal to mid segment which is widely patent free of in-stent restenosis with excellent proximal distal transitioning. There is an additional 30% mid LAD stenosis along a tortuous bend The circumflex artery Is a nondominant vessel and has proximal 10 to 20% luminal irregularity The right coronary artery Is a large dominant vessel and has a proximal 20 to 30% stenosis with a mid vessel 40 followed by 50 to 60% stenosis The SANCHEZ ventriculogram reveals Was not performed The left ventricular end-diastolic pressure Was not measured IMPRESSION MICHAEL II flow down the LAD and circumflex artery suggesting endothelial dysfunction. This did improve with subsequent contrast injection. Hemodynamically severe disease in the mid right coronary artery which corresponded to the abnormal Myoview with successful stenting reducing the stenosis to 0% with 2 contiguous drug-eluting stents PLAN 1. Continue dual antiplatelet therapy 2. Empiric treatment of endothelial dysfunction with nitrates and Ranexa 3. Avoidance of tobacco products 4. Cardiac rehabilitation 5. LDL less than 55 to be achieved with high intensity statin Electronically signed by : Jonathan Morris MD 03/27/2023 11:15:25
[2023-03-27 09:00] LABS: Basophils # 0.1 K/mm3 (0-0.2); Basophils % 1.3 % (0.1-2.0); Eosinophils # 0.1 K/mm3 (0.0-0.4); Eosinophils % 1.2 % (0.1-12.0); Hematocrit 47.5 % (42.0-52.0); Hemoglobin 16.1 g/dL (14.1-18.0); Lymphocytes # 3.6 K/mm3 (0.7-4.5); Lymphocytes % 44.7 % (10-50); Mean Corpuscular HGB Conc 33.9 g/dL (31.8-35.4); Mean Corpuscular Hemoglobin 32.8 pg (27.0-31.2); Mean Corpuscular Volume 96.8 fl (80-94); Mean Platelet Volume 7.5 fl (7.4-10.4); Monocytes # 0.7 K/mm3 (0.1-1.0); Monocytes % 8.6 % (1.7-9.3); Neutrophils # 3.6 K/mm3 (1.8-7.8); Neutrophils % 44.1 % (37.0-80.0); Platelet Count 270 K/mm3 (142-424); Red Cell Distribution Width 13.8 % (11.5-17.5); White Blood Count 8.1 K/mm3 (4.8-10.8)
[2023-03-27 09:10] LABS: Chloride 104 mmol/L (98-107); Potassium 4.1 mmoL/L (3.5-5.1); Sodium 140 mmol/L (136-145)
[2023-03-27 09:13] LABS: Anion Gap 15.1 mEq/L (5-15); Blood Urea Nitrogen 18 mg/dl (9-20); Carbon Dioxide 25 mmol/L (22.0-30.0); Creatinine Clearance Estimated 106 mL/min (50-200); Estimated Glomerular Filt Rate 75 ml/min (>60); GFR (African American) 91 ML/MIN (>60); Glucose 108 mg/dl (74-100)
[2023-03-27] MEDS: diphenhydrAMINE 50MG/ML VIAL 50 MG IV (10:48)
[2023-03-27] MEDS: HEPARIN 1,000 UNITS/500ML NS (CATH LAB) 3000 UNIT IV (10:48)
[2023-03-27] MEDS: HEPARIN 1,000 UNITS/ML 10ML VIAL (CATH LAB) 10000 UNIT IV (10:48)
[2023-03-27] MEDS: LIDOCAINE 1% 10ML MDV 20 ML IJ (10:48)
[2023-03-27] MEDS: NITROGLYCERIN 800MCG/8ML SYR (CATH LAB) 800 MCG IA (10:48)
[2023-03-27] MEDS: 0.9 % SODIUM CHLORIDE 500 ML 25 ML IV (10:48)
[2023-03-27] MEDS: FAMOTIDINE 20MG/2ML VIAL 20 MG IV (10:56)
[2023-03-27] MEDS: METHYLPREDNISOLONE SOD SUCC 125MG VIAL 125 MG IV (10:56)
[2023-03-27] MEDS: MIDAZOLAM HCL 1MG/1ML 5ML VIAL 1 MG IV (11:13)
[2023-03-27] MEDS: FENTANYL 100MCG/2ML VIAL 50 MCG IV (11:13)
[2023-03-27] MEDS: IOPAMIDOL-370 (76%);100ML BOTTLE 90 ML IV (11:51)
[2023-03-27 11:52] LABS: CATHL Activated Clotting Time 356 SEC (74-125)
== END 2023-03-27 14:57 | disposition home or self-care (01) ==
PROVIDERS: PCP Nurse Practitioner Family; Visit Provider Internal Medicine
DX: I25.118 Atherosclerotic heart disease of native coronary artery with other forms of angina pectoris (principal); R94.31 Abnormal electrocardiogram [ECG] [EKG]; R06.09 Other forms of dyspnea; R94.30 Abnormal result of cardiovascular function study, unspecified; R94.39 Abnormal result of other cardiovascular function study; Z86.73 Personal history of transient ischemic attack (TIA), and cerebral infarction without residual deficits; Z87.891 Personal history of nicotine dependence; Z79.899 Other long term (current) drug therapy
CPT/HCPCS: 80048; 85025; 85347; 92928; 93454; 99152; 99153; C1725; C1760; C1769; C1876; C9600; J1644; Q9967

== ENCOUNTER → 2023-03-28 09:13 | Outpatient (CLI) | payer MEDICAID, SELFPAY ==
[2023-03-28 19:18] LABS: Amphetamine/Metha Screen,Urine Negative ng/ml (<1000); Barbiturates Screen,Urine Negative ng/ml (<200)
[2023-03-28 19:19] LABS: Benzodiazepines Screen,Urine Positive ng/ml (<200); Cannabinoid Screen,Urine Negative ng/ml (<50)
[2023-03-28 19:20] LABS: Cocaine Screen,Urine Negative ng/ml (<300)
[2023-03-28 19:21] LABS: Methadone Screen,Urine Negative ng/ml (<300); Opiate Screen,Urine Positive ng/ml (<300)
[2023-03-28 19:22] LABS: Phencyclidine Screen,Urine Negative ng/ml (<25)
[2023-04-03 09:21] LABS: Codeine Negative (Cutoff=100); Gabapentin,Urine 196.7 ug/mL (.); Hydrocodone Positive (.); Hydrocodone Confirm 631 ng/mL (Cutoff=100); Hydromorphone Negative (Cutoff=100); Morphine Negative (Cutoff=100); Opiates Positive (.)
== END ==
LOC: LAB.DROPOF 03-29 09:14
PROVIDERS: PCP Nurse Practitioner Family; Visit Provider Nurse Practitioner Family
DX: Z79.899 Other long term (current) drug therapy (principal)
CPT/HCPCS: 80307; 80361; G0480

== ENCOUNTER 2023-04-24 12:13 | Outpatient (CLI) | payer MEDICAID, SELFPAY ==
[2023-04-24 12:56] LABS: Amphetamine/Metha Screen,Urine Negative ng/ml (<1000); Barbiturates Screen,Urine Negative ng/ml (<200)
[2023-04-24 12:57] LABS: Benzodiazepines Screen,Urine Negative ng/ml (<200)
[2023-04-24 12:58] LABS: Methadone Screen,Urine Negative ng/ml (<300)
[2023-04-24 12:59] LABS: Cannabinoid Screen,Urine Negative ng/ml (<50); Cocaine Screen,Urine Negative ng/ml (<300)
[2023-04-24 13:03] LABS: Opiate Screen,Urine Positive ng/ml (<300); Phencyclidine Screen,Urine Negative ng/ml (<25)
[2023-04-28 16:12] LABS: Codeine Negative (Cutoff=100); Hydrocodone Positive (.); Hydrocodone Confirm 1691 ng/mL (Cutoff=100); Hydromorphone Negative (Cutoff=100); Morphine Negative (Cutoff=100); Opiates Positive (.)
[2023-05-01 16:13] LABS: Gabapentin,Urine 123.8 ug/mL (.)
== END 2023-04-24 23:59 ==
LOC: LAB.DROPOF 12:14
PROVIDERS: PCP Nurse Practitioner Family; Visit Provider Nurse Practitioner Family
DX: Z79.899 Other long term (current) drug therapy (principal); M54.16 Radiculopathy, lumbar region
CPT/HCPCS: 80307; 80361; G0480

== ENCOUNTER 2023-06-04 20:54 | Outpatient (CLI) | payer MEDICAID, SELFPAY ==
[2023-06-04 18:48] LABS: Alanine Aminotransferase 31 U/L (12-78); Albumin Level 4.6 g/dl (3.5-5.0); Alkaline Phosphatase 84 U/L (38-126); Anion Gap 14.4 mEq/L (5-15); Aspartate Amino Transferase 29 U/L (17-59); Bilirubin,Total 0.7 mg/dl (0.2-1.3); Blood Urea Nitrogen 16 mg/dl (9-20); Calcium 9.8 mg/dl (8.4-10.2); Carbon Dioxide 24 mmol/L (22.0-30.0); Chloride 102 mmol/L (98-107); Estimated Glomerular Filt Rate 75 ml/min (>60); GFR (African American) 91 ML/MIN (>60); Globulin 2.3 g/dL (1.3-3.2); Glucose 107 mg/dl (74-100); Potassium 4.4 mmoL/L (3.5-5.1); Sodium 136 mmol/L (136-145); Total Protein,Serum 6.9 g/dl (6.3-8.2)
[2023-06-10 10:27] LABS: Free Valproic Acid (Depakote) 34.6
== END 2023-06-04 23:59 ==
LOC: LAB.DROPOF 20:54
PROVIDERS: PCP Nurse Practitioner Acute Care; Visit Provider Nurse Practitioner Acute Care
DX: Z79.899 Other long term (current) drug therapy (principal)
CPT/HCPCS: 80053; 80165

== ENCOUNTER 2023-06-16 16:23 | Outpatient (CLI) | payer MEDICAID, SELFPAY ==
--- NOTE | 2023-06-16 16:27 | MR_ITS ---
FINAL REPORT CLINICAL HISTORY: LBP COMPARISON: 01/02/2022 FINDINGS: Multiplanar MR imaging of the lumbar spine was performed without contrast. On the sagittal T2-weighted images, multilevel disc degeneration and endplate changes are seen. There is a hemangioma in the L2 vertebral body The vertebral alignment is normal. There is no evidence of fracture. No bony mass is identified. The conus is seen at approximately the L1 level and has an unremarkable appearance. L1-2: There is an annular disc bulge without significant canal stenosis or neural foraminal narrowing. L2-3: There is an annular disc bulge without significant canal stenosis or neural foraminal narrowing. L3-4: Annular disc bulge with mild bilateral neuroforaminal narrowing. L4-5: Annular disc bulge with facet arthropathy and osteophytes. There is moderate bilateral neuroforaminal narrowing. There is mild central canal stenosis with AP diameter thecal sac measuring 8 mm. L5-S1: Annular disc bulge with facet arthropathy. Moderate right and severe left neuroforaminal narrowing. IMPRESSION: Multilevel degenerative disc disease with moderate bilateral neuroforaminal narrowing and mild central canal stenosis at L4-5. Severe left neuroforaminal narrowing at L5-S1. Reviewed, Interpreted and Dictated by Eric Whitley III, MD Transcribed by Ryann Crowley Authenticated and [facility]
== END 2023-06-16 23:59 ==
LOC: RAD 16:24
PROVIDERS: PCP Nurse Practitioner Family; Visit Provider Nurse Practitioner Family
DX: M54.16 Radiculopathy, lumbar region (principal); M54.50 Low back pain, unspecified
CPT/HCPCS: 72148; 76376

== ENCOUNTER 2023-07-02 09:00 | Outpatient (RCR) | payer MEDICAID, SELFPAY ==
--- NOTE | 2023-06-02 11:46 | HMH.PTOPEV ---
PT Outpatient Evaluation Rehab PT Outpatient Evaluation Start: 06/02/23 10:49 Freq: Status: Active Protocol: Document 06/02/23 10:49 MELANIE (Rec: 06/02/23 11:46 MELANIE [id number]) E-signed By Annie De La Cruz, PT Outpatient Therapy Subjective History Subjective History Pt is a 63 y/o male who reports chronic low back and right lateral leg pain to his ankle since 2004. Pt states he had lumbar surgery in 2004 with improvement in symptoms until 2006 with insidious re- exacerbation of pain. Pt reports he has tried PT treatment, spinal cord stimulator, and multiple injections previously without relief. Pt reports he is taking Loratab and Gabapentin which helps decrease intensity of pain slightly. Pt reports he is scheduled to have a lumbar spine MRI on 06/16/23. Pt reports he saw a neurosurgeon in [place] last year and was told he is not a surgical candidate. Pt reports pain is aggravated by laying down, standing, walking , bending, and lifting. Pt denies saddle anesthesia or incontinence but does report increased urgency to urinate. Medical History: Bipolar, CVA in 2019 affecting right side, Asthma, CAD, Dyspnea, Dizziness, HHD, HLD, Pulmonary HTN New diagnosis of cancer in past 12 No months? Chief Complaint Pain,Paresthesia Symptom Type Ache,Sharp,Dull,Stabbing, Numbness,Tingling Symptoms Relieved By Prescription Meds Symptoms Aggravated By Supine,Standing,Bending/ Stooping,Physical Activity, Twisting,Walking,Lifting Current Functional Limitations Lifting,Standing,Squatting, Walking,Bending/Stooping Symptom Description Constant but Variable Level of pain today (0-10) 9 Pain scale - at its best (0-10) 9 Pain scale - at its worst (0-10) 10 Lumbopelvic Eval Gait Observation General Gait Pattern Observation Antalgic Gait Palapation tenderness bilateral lumbar spinal tenderness Yes paraspinal tenderness Yes buttock tenderness Yes Lumbar/Sacral Palpation Findings Tenderness Lumbar/Sacral Palpation Overall Comment 2/4 TTP R>L Accessory Movement L-spine Vertebrae Accessory Movements Central P/A Midway that Elicit Symptoms L2 bilateral L3 bilateral L4 bilateral L5 bilateral S1 bilateral Range of Motion Lumbar Spine Active Flexion Range of 60 Motion (degrees) Lumbar Spine Active Extension Range of 5 Motion (degrees) Left Lumbar Spine Lateral Flexion Active 15 Range of Motion (degrees) Right Lumbar Spine Lateral Flexion 15 Active Range of Motion (degrees) Manual Muscle Test Bilateral Knee Extension Strength Grade 5 Normal Knee Flexion Strength Grade 5 Normal Hip Flexion Strength Grade 4- Good- Hip Abduction Strength Grade 4- Good- Hip Adduction Strength Grade 4- Good- Hip Extension Strength Grade 4- Good- Ankle Dorsiflexion Strength Grade 5 Normal DTR Rt Patellar 2+ Lt Patellar 2+ Rt Gastroc/Soleus 2+ Lt Gastroc/Soleus 2+ Altered Sensation Bilateral Comment equal and intact to light touch sensation bilaterally Special Tests Hip Freddy (JODI) Test Positive Left,Positive Right Sciatic Nerve Tension Test Negative Left,Positive Right Unilateral Straight Leg Raise (Lasegue) Negative Left,Positive Right Test Outpatient Therapy Assessment Impairments Problems/Impairmments Palpation Tenderness,Impaired Range of Motion,Impaired Strength,Impaired Walking, Impaired Standing,Impaired Lifting,Impaired Household Care,Impaired Squatting, Impaired Bending,Subjective C/ O Pain,Impaired Self Care/Self Management Prognosis Rehab Potential Good Comment Barriers to progress include chronic pain for ~20 years Clinical Impression Consistent with Diagnosis Yes Short Term Goals Number of Weeks 3 Decrease Subjective C/O Pain Yes: Improve pain at worst to 8/10 to improve overall QOL Improve Self Care/Self Management Yes Patient to be Ind w/ HEP Yes Geospatial Engineer Goals Number of Weeks 6 Increase Range of Motion Yes: Improve lumbar AROM flex to 70, ext to 10-25, LF to 20 Increase Strength Yes: Improve BLE MMT to 4+-5/5 grossly to assist with function Increase Ability to Walk Yes: 5-10' with pain 6/10 or less to assist with iADLs Increase Ability to Stand Yes: 5-10' with pain 6/10 or less to assist with ADLs Decrease Subjective C/O Pain Yes: Improve pain at worst to 6/10 to improve overall QOL Outpatient Therapy Plan of Care Treatment Plan May Include Therapeutic Exercise Including Home Yes Exercise Program Manual Therapy Techniques Yes Neuromuscular Re-education Yes Therapeutic Activities to Return to Yes Previous Functional/Work Level ADL/Self Care Education Yes Mechanical Traction Yes Dry Needling Yes Thermal Modalities Yes Electrical Stimulation Yes Ultrasound/Phonophoresis Yes Massage Yes Eval/Re-Eval Yes Frequency Times per week 2 Duration Number of Weeks 4-6 Addendums This patient is a candidate for social No or vocational rehab? Patient/Guardian verbally acknowledges Yes understanding of treatment program and consents to further treatment? Patient/Guardian verbally acknowledges Yes understanding of diagnosis, prognosis and goals for treatment? Eval Complexity PT Charges 73970 - Moderate Complexity Shoulder/Elbow Eval Shoulder Objective Measurements Elbow Objective Measurements PHYSICIAN CERTIFICATION: I certify the specified therapy services for Eric Laguna are required, authorized, and reviewed every 30 days.
--- NOTE | 2023-07-02 09:18 | HMH.RHREAS ---
Rehab Reassessment Rehab OP Re-assessment Start: 06/02/23 10:49 Freq: Status: Active Protocol: Document 07/02/23 08:38 [email or web address] (Rec: 07/02/23 09:17 MELANIE [id number]) E-signed By Annie De La Cruz, PT Oswestry Index Section 1 Pain Intensity The pain is severe and does not vary much Section 2 Personal Care (Washing,Dresing) my way of washing or dressing even though it causes some pain Section 3 Lifting I can only lift very light weights at most Section 4 Walking I cannot walk more than 1/4 mile without increasing pain Section 5 Sitting Pain prevents me from sitting for more than one hour Section 6 Standing I cannot stand more than 1 hour without increasing pain Section 7 Sleeping Because of my pain, my normal night's sleep is less than 6 hours sleep Section 8 Social Life I hardly have any social life because of pain Section 9 Traveling I get extra pain while traveling which compels me to seek alternate fo Section 10 Changing Degreee of Pain My pain is gradually getting worse Score and Risk Level Oswestry Sc 33 Oswestry Risk Level Severe Disability Rehab Re-assessment Subjective Subjective Pt reports he feels 0% improved since starting PT. Pt reports continued 9-10/10 LBP and RLE pain at worst. Pt reports pain is aggravated by any movement. Pt reports pain is severe at night time and he is unable to sleep well due to this. Pt reports he returns to his MD on 07/17/23. Objective Objective Notes Lumbar AROM: 35 flex, 10 ex, 10 LF Assessment Progress Assessment No Progress Assessment Notes Pt has attended 7 PT visits consisting of aerobic exercise , lumbar mobility, LE/core strengthening, LE stretching, manual therapy, modalities and HEP. Pt demonstrated regression in lumbar AROM this date limited by pain. Pt is in the severe disability category for the ZACHARY and continues to report 9-10/10 LBP at worst. Due to lack of progress with conservative care and severity of pain, pt will be discharged from PT at this time and referred back to MD for further treatment options. Patient goals met ST/3 Goals Not Met STG, LTG Revised Goals n/a Plan Plan Discharge. Refer back to MD for further treatment options. Time and Billing Re-Eval Time 10 Re-Eval Billing Units 1 PHYSICIAN CERTIFICATION: I certify the specified therapy services for Eric Laguna are required, authorized, and reviewed every 30 days.
== END 2023-07-02 09:05 | disposition home or self-care (01) ==
LOC: PT 09:00
PROVIDERS: Visit Provider Nurse Practitioner Family
DX: M54.16 Radiculopathy, lumbar region (principal); M54.50 Low back pain, unspecified
CPT/HCPCS: 97035; 97110; 97163; 97164; 97530

== ENCOUNTER 2023-07-17 12:23 | Outpatient (CLI) | payer MEDICAID, SELFPAY ==
[2023-07-17 12:45] LABS: Basophils # 0.1 K/mm3 (0-0.2); Basophils % 1.5 % (0.1-2.0); Eosinophils # 0.2 K/mm3 (0.0-0.4); Hematocrit 46.3 % (42.0-52.0); Hemoglobin 14.9 g/dL (14.1-18.0); Lymphocytes % 42.8 % (10-50); Mean Corpuscular HGB Conc 32.1 g/dL (31.8-35.4); Mean Corpuscular Volume 102.7 fl (80-94); Mean Platelet Volume 7.7 fl (7.4-10.4); Monocytes # 0.6 K/mm3 (0.1-1.0); Monocytes % 8.9 % (1.7-9.3); Neutrophils % 43.7 % (37.0-80.0); Platelet Count 261 K/mm3 (142-424); Red Blood Count 4.51 M/mm3 (4.60-6.20); Red Cell Distribution Width 14.3 % (11.5-17.5); White Blood Count 6.9 K/mm3 (4.8-10.8)
[2023-07-17 12:59] LABS: Alanine Aminotransferase 27 U/L (12-78); Albumin Level 4.5 g/dl (3.5-5.0); Alkaline Phosphatase 74 U/L (38-126); Anion Gap 11.3 mEq/L (5-15); Aspartate Amino Transferase 33 U/L (17-59); Bilirubin,Direct 0.3 mg/dl (0.0-0.4); Bilirubin,Indirect 0.7 mg/dL (0.0-0.9); Bilirubin,Unconjugated 0.8 mg/dL (0.0-1.1); Blood Urea Nitrogen 20 mg/dl (9-20); Calcium 9.2 mg/dl (8.4-10.2); Carbon Dioxide 25 mmol/L (22.0-30.0); Chloride 107 mmol/L (98-107); Chol/HDL Ratio 5.1 (1-3.5); Cholesterol 223 mg/dl (140-200); Estimated Glomerular Filt Rate 61 ml/min (>60); GFR (African American) 74 ML/MIN (>60); Glucose 99 mg/dl (74-100); HDL Cholesterol 44 mg/dl (40-60); Potassium 4.3 mmoL/L (3.5-5.1); Sodium 139 mmol/L (136-145); Total Protein,Serum 7.2 g/dl (6.3-8.2); Triglycerides 201 mg/dl (30-150); VLDL Cholesterol 40 mg/dL (0-40)
[2023-07-17 13:04] LABS: D-Dimer < 0.25 ug/mL (0.0-0.5)
[2023-07-17 13:10] LABS: Direct LDL Cholesterol 117.93 mg/dL (100-129)
[2023-07-17 13:15] LABS: Troponin I < 0.01 ng/ml (0.00-0.034)
[2023-07-17 13:32] LABS: Thyroid Stimulating Hormone 3.64 uIU/mL (0.465-4.68)
[2023-07-17 14:16] LABS: Free T4 (Free Thyroxine) 1.23 ng/dl (0.78-2.19)
== END 2023-07-17 23:59 | disposition home or self-care (01) ==
LOC: LAB 12:24
PROVIDERS: PCP Nurse Practitioner Family; Visit Provider Nurse Practitioner
DX: R06.00 Dyspnea, unspecified (principal); R07.9 Chest pain, unspecified; I25.10 Atherosclerotic heart disease of native coronary artery without angina pectoris; I27.20 Pulmonary hypertension, unspecified; E11.9 Type 2 diabetes mellitus without complications; E78.2 Mixed hyperlipidemia; K21.9 Gastro-esophageal reflux disease without esophagitis; I11.9 Hypertensive heart disease without heart failure; G47.33 Obstructive sleep apnea (adult) (pediatric); Z87.891 Personal history of nicotine dependence; Z86.73 Personal history of transient ischemic attack (TIA), and cerebral infarction without residual deficits; Z99.89 Dependence on other enabling machines and devices
CPT/HCPCS: 36415; 80048; 80061; 80076; 84439; 84443; 84484; 85025; 85378

== ENCOUNTER 2023-07-29 07:15 | Outpatient (CLI) | payer MEDICAID, SELFPAY ==
--- NOTE | 2023-07-29 | CA_ITS ---
APPROVED REPORT Exam: Pharmacologic Technologist: Jessica Pritchett, Ht: 5 ft 9 in Wt: 218 lbs BSA: 2.14 m2 HR: 67 bpm BP: 118/74 mmHg Medical History Medications: Aspirin,,,,, Metoprolol,,,,, Gabapentin,,,,, Pantoprazole,,,,, Atorvastatin,,,,, Lasix,,,,, SpirOnolactone,,,,, Mirtazapine,,,,, Ranolazine,,,,, SilDENAFIL,,,,, Prasugrel,,,,, Divaloproex,,,,, Cardiac Risk Factors: HTN, Hyperlipidemia, Smoking Stress Test Details Test: LEXISCAN HR Resting HR: 65 bpm Max Heart Rate (APMHR): 157 bpm Max HR Achieved: 84 bpm Target HR (85% APMHR): 133 bpm % of APMHR: 54 Recovery HR: 76 bpm BP Resting BP: 118/74 mmHg Max BP: 134/86 mmHg Recovery BP: 122.0/95.0 mmHg ECG Resting ECG: NSR Stress ECG: No significant ST changes Arrhythmia: None Clinical Exercise duration: 04:01 min Highest Stage Achieved: Exercise capacity: 1.0 METs Stress ECG Conclusion During lexiscan pt experinced dyspnea and chest tightness. Ectopy: None ST changes: None EKG unremarkable due to lexiscan infusion. Myoview images reported separately. Test Summary REST . . . . . . . Sitting REST 02:46 . . 65 . 118/ 74 . . Stage 1 . . . . . . . Myoview Injected Stage 1 01:00 . . 73 . . . . Stage 2 01:00 . . 80 . 118/ 76 . . Stage 3 01:00 . . 76 . 125/ 86 . . Stage 4 01:00 . . 75 . 115/ 83 . . Stage 4 01:01 . . 76 . 115/ 83 . Stop exercise at 04:01 RECOVERY 01:00 . . 78 . . . . RECOVERY 02:00 . . 75 . 134/ 86 . . RECOVERY 03:00 . . 73 . 120/ 90 . . RECOVERY 03:17 . . 76 . 122/ 95 . . Electronically signed by : Lisha Guthrie MD 07/31/2023 14:21:50
--- NOTE | 2023-07-29 07:15 | NM_ITS ---
APPROVED REPORT Exam: Nuclear Stress Test Indication: Chest pain, SOB, HTN, CAD, High cholesterol, Family history Patient Location: Outpatient Stress Tech: Jessica KAMARA Tech:Yumiko Gallegos, ARRT, RT (R)(N) Ht: 5 ft 9 in Wt: 219 lbs HR: 65 bpm BP: 118/74 mmHg BSA: 2.15 m2 TID: 1.28 BMI: 32.3 History: Chest pain, SOB, HTN, CAD, High cholesterol, Family history Procedure: Patient received 0.4 mg of intravenous Lexiscan, resting heart rate 65 bpm, resting blood pressure 118/74 mmHg, with Lexiscan maximum heart rate achieved was 84 bpm which is % of the maximum predicted heart rate and blood pressure was 134/86 mmHg. With Lexiscan, patient denied any complaint of chest pain. Cardiac Stress and Resting SPECT Images: Cardiac Stress and Resting SPECT images were obtained using technetium 99m Myoview 29.9 mCi stress and 10.80 mCi at rest. Resting and stress images in supine and prone positions demonstrate no definite evidence of fixed or reversible perfusion defects. There is increased transient ischemic dilatation ratio (TID 1.28), suggestive of possible multivessel disease or balanced ischemia. Gated imaging demonstrates normal global and regional LV systolic function. LVEF is calculated at 54%. Conclusion: No definite evidence of fixed or reversible perfusion defects. There is increased transient ischemic dilatation ratio (TID 1.28), suggestive of possible multivessel disease or balanced ischemia. Gated imaging demonstrates normal global and regional LV systolic function. LVEF is calculated at 54%. Electronically signed by : Lisha Guthrie MD 07/31/2023 14:22:58
[2023-07-29] MEDS: SODIUM CHLORIDE 0.9% 10ML SYR (RAD ONLY) 10 ML IV ×2 (09:32)
[2023-07-29] MEDS: REGADENOSON 0.4MG/5ML SYRINGE 0.400000000000000022 MG IV (09:32)
[2023-07-29] MEDS: ISOTOPE MYOVIEW (PER STUDY) 1 DOSE IV (09:32)
== END 2023-07-29 23:59 | disposition home or self-care (01) ==
LOC: RAD 07:15
PROVIDERS: PCP Nurse Practitioner Family; Visit Provider Nurse Practitioner
DX: R07.9 Chest pain, unspecified (principal); R06.00 Dyspnea, unspecified; I25.10 Atherosclerotic heart disease of native coronary artery without angina pectoris; I27.20 Pulmonary hypertension, unspecified; E78.2 Mixed hyperlipidemia; Z87.891 Personal history of nicotine dependence; Z86.73 Personal history of transient ischemic attack (TIA), and cerebral infarction without residual deficits; R94.31 Abnormal electrocardiogram [ECG] [EKG]
CPT/HCPCS: 78452; 93017; 93018; A9502; J2785

== ENCOUNTER 2023-08-18 08:01 | Day surgery (SDC) | payer MEDICAID, SELFPAY ==
[2023-08-18] VITALS (13 sets, daily range): BP systolic 109–151; BP diastolic 62–92; PULSE 66–79; RESP 16–20; O2SAT 91–94; BMI 32.0
--- NOTE | 2023-08-18 07:19 | IR_ITS ---
APPROVED REPORT Patient Location: Outpatient PROCEDURES Left heart catheterization Left ventriculogram Selective coronary angiogram INDICATION Known multivessel coronary disease, Progressive angina pectoris, Abnormal Myoview Informed consent was obtained prior to the procedure. COMPLICATIONS NONE Estimated Blood Loss: LESS THAN 10 ML TECHNIQUE One percent lidocaine used to anesthetize the right anterior aspect of the wrist. The right radial artery was accessed via the Seldinger technique. A 6 Hungarian sheath was placed in the right radial artery. 2.5 mg of Verapamil, 800 mcg of nitroglycerin, 1mg Lidocaine and 5000 U Heparin were given through the arterial sheath. The papa catheter was also used to perform left heart catheterization, left ventriculogram and selective coronary angiogram. At the end of the procedure the sheath was removed good hemostasis was achieved using Traclet band, patient was transferred to the postop holding area in stable condition. ANGIOGRAPHIC RESULTS The left main artery Normal The left anterior descending artery Has a stent in the proximal to mid site which is widely patent free of in-stent restenosis with excellent proximal and distal transitioning there is an additional long tubular 30% stenosis throughout the mid and distal LAD The circumflex artery Large nondominant with mild 10 to 20% luminal irregularities The right coronary artery Nondominant has proximal 20% stenosis with proximal to mid vessel stenosis with wide patency and excellent proximal distal transitioning. There is a distal 20 to 30% stenosis The SANCHEZ ventriculogram reveals Normal 65% The left ventricular end-diastolic pressure 25 mmHg IMPRESSION Coronary disease as described above Widely patent stents Normal ejection fraction Elevated LVEDP PLAN 1. Continue medical management Electronically signed by : Jonathan Morris MD 08/21/2023 13:34:01
[2023-08-18 08:50] LABS: Basophils # 0.2 K/mm3 (0-0.2); Basophils % 1.6 % (0.1-2.0); Eosinophils # 0.2 K/mm3 (0.0-0.4); Eosinophils % 1.8 % (0.1-12.0); Hematocrit 43.9 % (42.0-52.0); Hemoglobin 14.7 g/dL (14.1-18.0); Lymphocytes # 3.3 K/mm3 (0.7-4.5); Lymphocytes % 35.9 % (10-50); Mean Corpuscular HGB Conc 33.6 g/dL (31.8-35.4); Mean Corpuscular Hemoglobin 34.1 pg (27.0-31.2); Mean Corpuscular Volume 101.4 fl (80-94); Mean Platelet Volume 7.7 fl (7.4-10.4); Monocytes # 0.8 K/mm3 (0.1-1.0); Monocytes % 8.8 % (1.7-9.3); Neutrophils # 4.7 K/mm3 (1.8-7.8); Neutrophils % 51.9 % (37.0-80.0); Platelet Count 279 K/mm3 (142-424); Red Blood Count 4.33 M/mm3 (4.60-6.20); Red Cell Distribution Width 14.3 % (11.5-17.5); White Blood Count 9.1 K/mm3 (4.8-10.8)
[2023-08-18 09:02] LABS: Anion Gap 15.5 mEq/L (5-15); Blood Urea Nitrogen 17 mg/dl (9-20); Calcium 9.9 mg/dl (8.4-10.2); Carbon Dioxide 25 mmol/L (22.0-30.0); Chloride 102 mmol/L (98-107); Creatinine Clearance Estimated 96 mL/min (50-200); Estimated Glomerular Filt Rate 68 ml/min (>60); GFR (African American) 82 ML/MIN (>60); Glucose 104 mg/dl (74-100); Potassium 4.5 mmoL/L (3.5-5.1); Sodium 138 mmol/L (136-145)
[2023-08-18] MEDS: diphenhydrAMINE 50MG/ML VIAL 50 MG IV (10:46)
[2023-08-18] MEDS: VERAPAMIL 2.5MG/ML 2ML VIAL 2.5 MG IV (10:46)
[2023-08-18] MEDS: NITROGLYCERIN 800MCG/8ML SYR (CATH LAB) 800 MCG IA (10:46)
[2023-08-18] MEDS: HEPARIN 1,000 UNITS/ML 10ML VIAL (CATH LAB) 10000 UNIT IV (10:46)
[2023-08-18] MEDS: LIDOCAINE 1% 10ML MDV 20 ML IJ (10:46)
[2023-08-18] MEDS: 0.9 % SODIUM CHLORIDE 500 ML 25 ML IV (10:47)
[2023-08-18] MEDS: METHYLPREDNISOLONE SOD SUCC 125MG VIAL 125 MG IV (10:47)
[2023-08-18] MEDS: HEPARIN 1,000 UNITS/500ML NS (CATH LAB) 3000 UNIT IV (10:47)
[2023-08-18] MEDS: FAMOTIDINE 20MG/2ML VIAL 20 MG IV (10:47)
[2023-08-18] MEDS: FENTANYL 100MCG/2ML VIAL 50 MCG IV (10:58)
[2023-08-18] MEDS: MIDAZOLAM HCL 1MG/1ML 5ML VIAL 1 MG IV (10:58)
[2023-08-18] MEDS: IOPAMIDOL-370 (76%);100ML BOTTLE 50 ML IV (15:42)
== END 2023-08-18 14:08 | disposition home or self-care (01) ==
PROVIDERS: PCP Nurse Practitioner Family; Visit Provider Internal Medicine
DX: I25.118 Atherosclerotic heart disease of native coronary artery with other forms of angina pectoris (principal); Z95.5 Presence of coronary angioplasty implant and graft; G47.33 Obstructive sleep apnea (adult) (pediatric); Z99.89 Dependence on other enabling machines and devices; R07.9 Chest pain, unspecified; I27.20 Pulmonary hypertension, unspecified; R06.00 Dyspnea, unspecified; E78.2 Mixed hyperlipidemia; R94.39 Abnormal result of other cardiovascular function study; Z87.891 Personal history of nicotine dependence; Z86.73 Personal history of transient ischemic attack (TIA), and cerebral infarction without residual deficits
CPT/HCPCS: 80048; 85025; 93458; 99152; C1725; C1769; J1644; Q9967

== ENCOUNTER 2023-12-10 08:38 | Outpatient (CLI) | payer MEDICAID, SELFPAY ==
[2023-12-10 09:03] LABS: Basophils # 0.1 K/mm3 (0-0.2); Basophils % 1.5 % (0.1-2.0); Eosinophils # 0.1 K/mm3 (0.0-0.4); Eosinophils % 1.4 % (0.1-12.0); Hematocrit 47.3 % (42.0-52.0); Lymphocytes # 3.9 K/mm3 (0.7-4.5); Lymphocytes % 53.5 % (10-50); Mean Corpuscular HGB Conc 31.7 g/dL (31.8-35.4); Mean Corpuscular Hemoglobin 34.2 pg (27.0-31.2); Mean Corpuscular Volume 107.7 fl (80-94); Mean Platelet Volume 8.4 fl (7.4-10.4); Monocytes # 0.7 K/mm3 (0.1-1.0); Monocytes % 9.8 % (1.7-9.3); Neutrophils # 2.5 K/mm3 (1.8-7.8); Neutrophils % 33.8 % (37.0-80.0); Platelet Count 281 K/mm3 (142-424); Red Blood Count 4.39 M/mm3 (4.60-6.20); White Blood Count 7.4 K/mm3 (4.8-10.8)
[2023-12-10 09:26] LABS: MANUAL DIFFERENTIAL MANUAL DIFFERENTIAL (MANUAL DIFF)
[2023-12-10 09:42] LABS: Alanine Aminotransferase 25 U/L (12-78); Albumin Level 4.2 g/dl (3.5-5.0); Alkaline Phosphatase 58 U/L (38-126); Anion Gap 11.3 mEq/L (5-15); Aspartate Amino Transferase 26 U/L (17-59); Bilirubin,Direct 0.3 mg/dl (0.0-0.4); Bilirubin,Indirect 0.3 mg/dL (0.0-0.9); Bilirubin,Total 0.6 mg/dl (0.2-1.3); Bilirubin,Unconjugated 0.3 mg/dL (0.0-1.1); Blood Urea Nitrogen 16 mg/dl (9-20); Calcium 9.8 mg/dl (8.4-10.2); Carbon Dioxide 29 mmol/L (22.0-30.0); Chloride 102 mmol/L (98-107); Chol/HDL Ratio 4.5 (1-3.5); Cholesterol 254 mg/dl (140-200); Estimated Glomerular Filt Rate 75 ml/min (>60); GFR (African American) 91 ML/MIN (>60); Glucose 108 mg/dl (74-100); HDL Cholesterol 57 mg/dl (40-60); Potassium 4.3 mmoL/L (3.5-5.1); Sodium 138 mmol/L (136-145); Total Protein,Serum 6.9 g/dl (6.3-8.2); Triglycerides 320 mg/dl (30-150); VLDL Cholesterol 64 mg/dL (0-40)
[2023-12-10 09:53] LABS: Direct LDL Cholesterol 138.55 mg/dL (100-129)
[2023-12-10 09:58] LABS: Free T4 (Free Thyroxine) 1.26 ng/dl (0.78-2.19)
[2023-12-10 10:12] LABS: Thyroid Stimulating Hormone 7.41 uIU/mL (0.465-4.68)
[2023-12-10 12:16] LABS: Eosinophils % 2 % (0-3); Lymphocytes % 55 % (10-50); Monocytes % 15 % (2-9); Neutrophils % 28 % (42-76); Platelet Estimate Normal; RBC Morphology Normal; Total Cells Counted 100
== END 2023-12-10 23:59 | disposition home or self-care (01) ==
LOC: LAB 08:39
PROVIDERS: PCP Nurse Practitioner Family; Visit Provider Physician Assistant
DX: R06.00 Dyspnea, unspecified (principal); J45.21 Mild intermittent asthma with (acute) exacerbation; G47.33 Obstructive sleep apnea (adult) (pediatric); Z99.89 Dependence on other enabling machines and devices; I25.10 Atherosclerotic heart disease of native coronary artery without angina pectoris; Z86.73 Personal history of transient ischemic attack (TIA), and cerebral infarction without residual deficits; Z87.891 Personal history of nicotine dependence; E78.2 Mixed hyperlipidemia; I27.20 Pulmonary hypertension, unspecified; K21.9 Gastro-esophageal reflux disease without esophagitis; I11.9 Hypertensive heart disease without heart failure
CPT/HCPCS: 36415; 80048; 80061; 80076; 84439; 84443; 85007; 85025; 85027

== ENCOUNTER 2024-02-21 11:11 | Emergency (ER) | payer MEDICAID, SELFPAY ==
[2024-02-21 11:13] VITALS: BP 123/88; PULSE 74; RESP 20; TEMP 37.2; O2SAT 99; BMI 32.0
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
[2024-02-21] MEDS: predniSONE 20MG TAB 40 MG PO (11:51)
[2024-02-21] MEDS: cephALEXin 500MG CAPSULE 1000 MG PO (11:51)
[2024-02-21 11:58] VITALS: BP 131/71; PULSE 79; RESP 18; TEMP 37.1; O2SAT 99
== END 2024-02-21 11:59 | disposition home or self-care (01) ==
PROVIDERS: Emergency Provider Emergency Medicine; PCP Nurse Practitioner Family
DX: T30.0 Burn of unspecified body region, unspecified degree (principal); L98.9 Disorder of the skin and subcutaneous tissue, unspecified; Z87.891 Personal history of nicotine dependence; T65.894A Toxic effect of other specified substances, undetermined, initial encounter; Y92.89 Other specified places as the place of occurrence of the external cause
CPT/HCPCS: 99283

== ENCOUNTER 2024-03-18 10:24 | Outpatient (CLI) | payer MEDICAID, SELFPAY ==
[2024-03-18 11:00] LABS: Basophils # 0.1 K/mm3 (0-0.2); Basophils % 0.9 % (0.1-2.0); Eosinophils # 0.1 K/mm3 (0.0-0.4); Eosinophils % 1.6 % (0.1-12.0); Hematocrit 40.6 % (42.0-52.0); Hemoglobin 13.4 g/dL (14.1-18.0); Lymphocytes # 2.6 K/mm3 (0.7-4.5); Lymphocytes % 38.2 % (10-50); Mean Corpuscular Hemoglobin 33.7 pg (27.0-31.2); Mean Platelet Volume 9.3 fl (7.4-10.4); Monocytes # 0.9 K/mm3 (0.1-1.0); Monocytes % 13.4 % (1.7-9.3); Neutrophils # 3.1 K/mm3 (1.8-7.8); Neutrophils % 44.9 % (37.0-80.0); Platelet Count 259 K/mm3 (142-424); Red Blood Count 3.98 M/mm3 (4.60-6.20); Red Cell Distribution Width 12.5 % (11.5-17.5); White Blood Count 6.9 K/mm3 (4.8-10.8)
[2024-03-18 11:29] LABS: Alanine Aminotransferase 25 U/L (12-78); Albumin Level 4.1 g/dl (3.5-5.0); Alkaline Phosphatase 51 U/L (38-126); Anion Gap 10.8 mEq/L (5-15); Aspartate Amino Transferase 26 U/L (17-59); Bilirubin,Total 0.7 mg/dl (0.2-1.3); Blood Urea Nitrogen 17 mg/dl (9-20); Calcium 9.3 mg/dl (8.4-10.2); Carbon Dioxide 28 mmol/L (22.0-30.0); Chloride 101 mmol/L (98-107); Chol/HDL Ratio 4.3 (1-3.5); Cholesterol 219 mg/dl (140-200); Estimated Glomerular Filt Rate 75 ml/min (>60); GFR (African American) 91 ML/MIN (>60); Globulin 2.1 g/dL (1.3-3.2); Glucose 88 mg/dl (74-100); HDL Cholesterol 51 mg/dl (40-60); Potassium 4.8 mmoL/L (3.5-5.1); Sodium 135 mmol/L (136-145); Total Protein,Serum 6.2 g/dl (6.3-8.2); Triglycerides 330 mg/dl (30-150); VLDL Cholesterol 66 mg/dL (0-40)
[2024-03-18 11:40] LABS: Direct LDL Cholesterol 127.76 mg/dL (100-129)
[2024-03-18 11:46] LABS: Free T4 (Free Thyroxine) 0.91 ng/dl (0.78-2.19)
[2024-03-18 12:10] LABS: Hemoglobin A1C 5.7 % (4.0-6.0)
== END 2024-03-18 23:59 | disposition home or self-care (01) ==
LOC: LAB 10:25
PROVIDERS: PCP Nurse Practitioner Family; Visit Provider Nurse Practitioner Acute Care
DX: F31.75 Bipolar disorder, in partial remission, most recent episode depressed (principal); E66.09 Other obesity due to excess calories; Z68.32 Body mass index [BMI] 32.0-32.9, adult; E78.2 Mixed hyperlipidemia
CPT/HCPCS: 36415; 80050; 80053; 80061; 83036; 84439; 84443; 85025

== ENCOUNTER 2024-07-16 08:40 | Outpatient (CLI) | payer MEDICAID, SELFPAY ==
[2024-07-16 09:00] LABS: Basophils # 0.1 K/mm3 (0-0.2); Basophils % 0.9 % (0.1-2.0); Eosinophils # 0.3 Kmm3 (0.0-0.4); Eosinophils % 4.3 % (0.1-12.0); Hematocrit 40.7 % (42.0-52.0); Hemoglobin 13.8 g/dL (14.1-18.0); Lymphocytes # 3.2 K/mm3 (0.7-4.5); Lymphocytes % 43.6 % (10-50); Mean Corpuscular HGB Conc 33.9 g/dL (31.8-35.4); Mean Corpuscular Hemoglobin 34.1 pg (27.0-31.2); Mean Corpuscular Volume 100.5 fl (80-94); Mean Platelet Volume 9.3 fl (7.4-10.4); Monocytes # 0.9 K/mm3 (0.1-1.0); Monocytes % 12.5 % (1.7-9.3); Neutrophils # 2.7 K/mm3 (1.8-7.8); Neutrophils % 36.7 % (37.0-80.0); Nucleated Red Blood Cells # 0 10^3/uL; Nucleated Red Blood Cells % 0 %; Platelet Count 253 K/mm3 (142-424); Red Blood Count 4.05 M/mm3 (4.60-6.20); Red Cell Distribution Width 12.8 % (11.5-17.5); White Blood Count 7.4 K/mm3 (4.8-10.8)
[2024-07-16 09:21] LABS: Albumin Level 4.2 g/dl (3.5-5.0); Chloride 102 mmol/L (98-107)
[2024-07-16 09:22] LABS: Potassium 4.3 mmoL/L (3.5-5.1); Sodium 136 mmol/L (136-145)
[2024-07-16 09:24] LABS: Alanine Aminotransferase 27 U/L (12-78); Alkaline Phosphatase 64 U/L (38-126); Anion Gap 15.3 mEq/L (5-15); Aspartate Amino Transferase 25 U/L (17-59); Bilirubin,Direct 0.1 mg/dl (0.0-0.4); Bilirubin,Indirect 0.5 mg/dL (0.0-0.9); Bilirubin,Total 0.6 mg/dl (0.2-1.3); Bilirubin,Unconjugated 0.5 mg/dL (0.0-1.1); Blood Urea Nitrogen 18 mg/dl (9-20); Carbon Dioxide 23 mmol/L (22.0-30.0); Estimated Glomerular Filt Rate 85 ml/min (>60); GFR (African American) 103 ML/MIN (>60); Total Protein,Serum 6.6 g/dl (6.3-8.2)
[2024-07-16 09:25] LABS: Calcium 9.1 mg/dl (8.4-10.2); Chol/HDL Ratio 2.9 (1-3.5); Cholesterol 175 mg/dl (140-200); Glucose 112 mg/dl (74-100); HDL Cholesterol 61 mg/dl (40-60); Triglycerides 268 mg/dl (30-150); VLDL Cholesterol 54 mg/dL (0-40)
[2024-07-16 09:36] LABS: Direct LDL Cholesterol 75.94 mg/dL (100-129)
[2024-07-16 10:02] LABS: Free T4 (Free Thyroxine) 1.18 ng/dl (0.78-2.19)
== END 2024-07-16 23:59 | disposition home or self-care (01) ==
LOC: LAB 08:41
PROVIDERS: PCP Nurse Practitioner Family; Visit Provider Physician Assistant
DX: E66.09 Other obesity due to excess calories (principal); Z68.32 Body mass index [BMI] 32.0-32.9, adult; I25.10 Atherosclerotic heart disease of native coronary artery without angina pectoris; I27.20 Pulmonary hypertension, unspecified; E78.2 Mixed hyperlipidemia; I11.9 Hypertensive heart disease without heart failure; R53.83 Other fatigue
CPT/HCPCS: 36415; 80048; 80061; 80076; 84439; 84443; 85025

== ENCOUNTER 2024-07-21 08:35 | Outpatient (CLI) | payer MEDICAID, SELFPAY ==
[2024-07-21 09:55] LABS: Free T4 (Free Thyroxine) 1.29 ng/dl (0.78-2.19)
== END 2024-07-21 23:59 | disposition home or self-care (01) ==
LOC: LAB 08:36
PROVIDERS: PCP Nurse Practitioner Family; Visit Provider Nurse Practitioner Family
DX: R79.89 Other specified abnormal findings of blood chemistry (principal)
CPT/HCPCS: 36415; 84439; 84443

== ENCOUNTER 2024-08-31 13:40 | Outpatient (CLI) | payer MEDICAID, SELFPAY ==
[2024-08-31] MEDS: ALBUTEROL 0.083% 2.5 MG/3 ML NEB IH (15:00)
--- NOTE | 2024-08-31 15:00 | PC.NURSE ---
PFT and 6 Minute Walk Test completed without incident. Albuterol 0.083% given via HHN, per written protocol, Pt tolerated tx well.
== END 2024-08-31 23:59 | disposition home or self-care (01) ==
LOC: RT 13:40
PROVIDERS: PCP Nurse Practitioner Family; Visit Provider Internal Medicine Pulmonary Disease
DX: J44.9 Chronic obstructive pulmonary disease, unspecified (principal)
CPT/HCPCS: 94060; 94618; 94726; 94729

== ENCOUNTER 2024-09-01 07:59 | Day surgery (SDC) | payer MEDICAID, SELFPAY ==
[2024-09-01] VITALS (13 sets, daily range): BP systolic 109–135; BP diastolic 64–81; PULSE 55–65; RESP 16–20; TEMP 36.9; O2SAT 92–98; BMI 31.4
--- NOTE | 2024-09-01 07:12 | IR_ITS ---
APPROVED REPORT Patient Location: Outpatient PROCEDURES Left heart catheterization Left ventriculogram Selective coronary angiogram INDICATION Accelerated angina pectoris Informed consent was obtained prior to the procedure. COMPLICATIONS NONE Estimated Blood Loss: LESS THAN 10 ML TECHNIQUE One percent lidocaine used to anesthetize the right anterior aspect of the wrist. The right radial artery was accessed via the Seldinger technique. A 6 Kazakh sheath was placed in the right radial artery. 2.5 mg of Verapamil, 800 mcg of nitroglycerin, 1mg Lidocaine and 5000 U Heparin were given through the arterial sheath. The JL3 catheter was also used to perform left heart catheterization, left ventriculogram and selective coronary angiogram. At the end of the procedure the sheath was removed good hemostasis was achieved using Traclet band, patient was transferred to the postop holding area in stable condition. ANGIOGRAPHIC RESULTS The left main artery Normal The left anterior descending artery Has stents in the proximal to mid segment which are widely patent free of in-stent restenosis with excellent proximal distal transitioning. There is an additional 30% stenosis along a tortuous bend in the mid segment. MICHAEL II flow was initially present with the first injection which improved to MICHAEL III flow over subsequent injections The circumflex artery Nondominant with proximal 20 to 30% smooth concentric stenosis The right coronary artery Large and dominant with proximal 10 to 20% stenosis and mid vessel to distal 10% stenosis The SANCHEZ ventriculogram reveals Reduced 45% The left ventricular end-diastolic pressure 20 mmHg IMPRESSION Widely patent stent in the proximal LAD Slow flow down the on initial angiographic picture suggesting endothelial dysfunction as the flow improved with subsequent injections Reduced ejection fraction Elevated LVEDP PLAN 1. Recommend tobacco cessation 2. Medical management for endothelial dysfunction 3. Medical management for risk factor modification and reduced ejection fraction Electronically signed by : Jonathan Morris MD 09/01/2024 10:16:55
[2024-09-01 08:35] LABS: Basophils # 0.1 K/mm3 (0-0.2); Basophils % 1.1 % (0.1-2.0); Eosinophils # 0.2 Kmm3 (0.0-0.4); Eosinophils % 2.5 % (0.1-12.0); Hematocrit 42.3 % (42.0-52.0); Hemoglobin 14.5 g/dL (14.1-18.0); Immature Granulocytes # 0.09 10^3uL; Immature Granulocytes % 1.2 %; Lymphocytes # 3.4 K/mm3 (0.7-4.5); Lymphocytes % 45.3 % (10-50); Mean Corpuscular HGB Conc 34.3 g/dL (31.8-35.4); Mean Corpuscular Hemoglobin 34.3 pg (27.0-31.2); Mean Platelet Volume 9.5 fl (7.4-10.4); Monocytes % 13.3 % (1.7-9.3); Neutrophils # 2.8 K/mm3 (1.8-7.8); Neutrophils % 36.6 % (37.0-80.0); Nucleated Red Blood Cells # 0 10^3/uL; Nucleated Red Blood Cells % 0 %; Platelet Count 217 K/mm3 (142-424); Red Blood Count 4.23 M/mm3 (4.60-6.20); Red Cell Distribution Width 12.4 % (11.5-17.5); Red Cell Distribution Width-SD 45.8 fL; White Blood Count 7.6 K/mm3 (4.8-10.8)
[2024-09-01 08:42] LABS: Chloride 104 mmol/L (98-107); Sodium 139 mmol/L (136-145)
[2024-09-01 08:43] LABS: Potassium 4.2 mmoL/L (3.5-5.1)
[2024-09-01 08:46] LABS: Anion Gap 12.2 mEq/L (5-15); Blood Urea Nitrogen 17 mg/dl (9-20); Calcium 9.2 mg/dl (8.4-10.2); Carbon Dioxide 27 mmol/L (22.0-30.0); Creatinine Clearance Estimated 102 mL/min (50-200); Estimated Glomerular Filt Rate 75 ml/min (>60); GFR (African American) 91 ML/MIN (>60); Glucose 106 mg/dl (74-100)
[2024-09-01] MEDS: HEPARIN 1,000 UNITS/500ML NS (CATH LAB) 3000 UNIT IV (09:32)
[2024-09-01] MEDS: NITROGLYCERIN 800MCG/8ML SYR (CATH LAB) 800 MCG IA (09:32)
[2024-09-01] MEDS: HEPARIN 1,000 UNITS/ML 10ML VIAL (CATH LAB) 5000 UNIT IV (09:33)
[2024-09-01] MEDS: diphenhydrAMINE 50MG/ML VIAL 50 MG IV (09:33)
[2024-09-01] MEDS: LIDOCAINE 1% 10ML MDV 10 ML IJ (09:33)
[2024-09-01] MEDS: VERAPAMIL 2.5MG/ML 2ML VIAL 2.5 MG IV (09:33)
[2024-09-01] MEDS: 0.9 % SODIUM CHLORIDE 500 ML 25 ML IV (09:34)
[2024-09-01] MEDS: FAMOTIDINE 20MG/2ML VIAL 20 MG IV (10:07)
[2024-09-01] MEDS: METHYLPREDNISOLONE SOD SUCC 125MG VIAL 125 MG IV (10:07)
[2024-09-01] MEDS: FENTANYL 100MCG/2ML VIAL 50 MCG IV (10:12)
[2024-09-01] MEDS: MIDAZOLAM HCL 1MG/ML 5ML VIAL 1 MG IV (10:12)
[2024-09-01] MEDS: IOPAMIDOL-370 (76%);100ML BOTTLE 60 ML IV (11:53)
== END 2024-09-01 13:57 | disposition home or self-care (01) ==
LOC: CATHLAB 08:00
PROVIDERS: PCP Nurse Practitioner Family; Visit Provider Internal Medicine
PROC: 4A023N7 Measurement of Cardiac Sampling and Pressure, Left Heart, Percutaneous Approach (ICD-10-PCS; CPT 93452; principal; 2024-09-01 09:15)
DX: I25.118 Atherosclerotic heart disease of native coronary artery with other forms of angina pectoris (principal); I25.2 Old myocardial infarction; I27.20 Pulmonary hypertension, unspecified; I11.9 Hypertensive heart disease without heart failure; R60.0 Localized edema; E66.3 Overweight; E78.2 Mixed hyperlipidemia; Z88.0 Allergy status to penicillin; Z95.5 Presence of coronary angioplasty implant and graft; Z91.013 Allergy to seafood; Z79.82 Long term (current) use of aspirin; Z79.899 Other long term (current) drug therapy; Z87.891 Personal history of nicotine dependence; Z86.73 Personal history of transient ischemic attack (TIA), and cerebral infarction without residual deficits; Z68.31 Body mass index [BMI] 31.0-31.9, adult
CPT/HCPCS: 93452; 80048; 85025; 99152; C1725; C1769; J1200; J1644; J2003; J2919; J3010; J7040; Q9967

== ENCOUNTER 2024-09-02 09:39 | Emergency (ER) | payer MEDICAID, SELFPAY ==
[2024-09-02 09:43] VITALS: BP 120/88; PULSE 69; PULSE 71; RESP 18; TEMP 36.5; O2SAT 96; O2SAT 97; BMI 32.1
[2024-09-02 10:00] VITALS: BP 114/70; PULSE 69; O2SAT 95
--- NOTE | 2024-09-02 10:39 | ED_ITS ---
Discharge Plan Disposition Patient Disposition: Home, Self-Care Condition: Good Prescriptions Prescriptions: No Action albuterol sulfate 90 mcg/actuation HFA aerosol inhaler 2 puff inhalation QID PRN (Reason: shortness of breath or wheezing) 30 Days Qty: 8.5 2RF spironolactone 50 mg tablet 50 mg PO DAILY Qty: 90 3RF Leqvio 284 mg/1.5 mL syringe 284 mg SQ [id number] Qty: 1.5 2RF budesonide-formoterol [Symbicort] 160-4.5 mcg/actuation HFA aerosol inhaler 1 puff inhalation QID PRN (Reason: shortness of breath or wheezing) 90 Days Qty: 10.2 3RF quetiapine [Seroquel] 25 mg tablet 37.5 mg PO DAILY Qty: 135 0RF divalproex [Depakote] 500 mg tablet,delayed release (DR/EC) 1,000 mg PO DAILY Qty: 180 0RF nitroglycerin 0.4 mg tablet, sublingual 0.4 mg sublingual Q5-15M PRN (Reason: pain) Qty: 10 0RF Rx Instructions: do not exceed 3 doses per episode (DME) blood pressure monitor [Blood Pressure Kit] Kit See Rx Instructions .Route Qty: 1 0RF Rx Instructions: As directed sildenafil 50 mg tablet 50 mg PO DAILY PRN (Reason: sexual activity) Qty: 30 2RF mirtazapine 30 mg tablet 30 - 45 mg PO HS PRN (Reason: sleep) Qty: 135 0RF isosorbide mononitrate 60 mg tablet extended release 24 hr 60 mg PO DAILY Qty: 90 3RF aspirin 81 mg tablet,delayed release (DR/EC) 81 mg PO DAILY Qty: 90 2RF ranolazine 1,000 mg tablet extended release 12 hr 1,000 mg PO BID Qty: 180 3RF metoprolol tartrate 25 mg tablet 25 mg PO BID 90 Days Qty: 180 3RF Rx Instructions: TAKE ONE TABLET BY MOUTH BID FOR BLOOD PRESSURE pantoprazole 40 mg tablet,delayed release (DR/EC) 40 mg PO DAILY Qty: 90 3RF Rx Instructions: TAKE 1 TABLET DAILY FOR STOMACH furosemide [Lasix] 80 mg tablet 80 mg PO DAILY Qty: 30 5RF atorvastatin 80 mg tablet 80 mg PO DAILY Qty: 90 3RF prasugrel HCl [Effient] 10 mg tablet 10 mg PO DAILY 90 Days Qty: 90 3RF quetiapine [Seroquel] 25 mg tablet 37.5 mg PO DAILY Qty: 45 2RF hydrocodone-acetaminophen 10-325 mg tablet 1 tab PO TID Qty: 90 0RF gabapentin 300 mg capsule 300 mg PO BID Qty: 60 0RF Referrals Follow up/Referrals: Fabricio Lr APRN [Primary Care Provider, Family Practice] - See instructions Activity Restrictions/Add. Instructions Additional Instructions/Restrictions: You were evaluated in the emergency department today. Please follow-up closely with your primary care provider and equipment validation engineer on an outpatient basis. Keep your dressing on for the next 12 to 24 hours, after that you may cover the area with a small Band-Aid. Some oozing is okay as long as you do not have prior blood spurting from your incision or development of a very large hematoma. Return to the emergency department for new or worsening symptoms. Clinical Impressions Clinical Impression: Status post cardiac catheterization, Post-op bleeding Stand Alone Forms Stand Alone Forms: Work/School Release Instructions Patient Instructions: DI for Post-Surgical Bleeding Print Language Print Language: Portuguese Discharge ED Provider: Annie Diaz General Adult HPI General Chief complaint: Skin/Abscess/Foreign Body Stated complaint: bleeding from cath site Time Seen by Provider: 09/02/24 09:53 Mode of Arrival: Ambulatory Source of Information: Patient Description of Symptoms (Recalled from ER Triage Doc. by RN): pt presents to ED stating he had a heart cath done yesterday and that his right wrist keeps bleeding. pt did have scant amount of dried blood on bandaid that he had in place. dressing removed and no bleeding noted. History of Present Illness HPI narrative: This patient is a 64-year-old male with a history of CAD who underwent cardiac catheterization yesterday via right radial access presenting to the emergency department for evaluation concern for blood oozing from the access site. Patient notes that he was having issues with the dressing that they had placed yesterday, so he elected to remove it and place a regular Band-Aid. He states that last night at some point, he had some bleeding from the site and had some blood on the Band-Aid when he woke up. He replaced it with a new Band-Aid and had only scant amount of blood on the Band-Aid in place upon arrival. He states that he went to the [facility] to see if they could help with a new dressing, but they told him to come to the ED. He denies any other concerns or complaints and there is no active bleeding at this time. No numbness, tingling, or other issues. Related Data Previous Rx's ?Medication ?Instructions ?Recorded albuterol sulfate 90 mcg/actuation 2 puff inhalation Q ID PRN 08/28/23 aerosol inhaler shortness of breath or wheez ing 30 days #8.5 grams mirtazapine 30 mg tablet 30 - 45 mg (1 - 1.5 x 30 mg) PO HS 11/10/23 PRN sleep #135 tabs sildenafil 50 mg tablet 50 mg PO DAILY PRN sexual ac tivity 11/10/23 #30 tabs isosorbide mononitrate 60 mg 60 mg PO DAILY #90 tabs 1 tablet,extended release 24 hr aspirin 81 mg tablet,delayed 81 mg PO DAILY Blood thin ner #90 02/05/24 release tabs ranolazine 1,000 mg 1,000 mg PO BID #180 tabs tablet,extended release,12 hr metoprolol tartrate 25 mg tablet 25 mg PO BID BP 90 da ys #180 tabs 03/19/24 pantoprazole 40 mg tablet,delayed 40 mg PO DAILY #90 t abs 05/03/24 release furosemide 80 mg tablet (Lasix) 80 mg PO DAILY #30 tab s 05/10/24 atorvastatin 80 mg tablet 80 mg PO DAILY #90 tabs 05/02 05/25 prasugrel HCl 10 mg tablet 10 mg PO DAILY 90 days #90 tabs 05/22/24 (Effient) inclisiran 284 mg/1.5 mL 284 mg (1.5 mL) SQ [id number] #1.5 mL 05/27/24 subcutaneous syringe (Leqvio) spironolactone 50 mg tablet 50 mg PO DAILY #90 tabs divalproex 500 mg tablet,delayed 1,000 mg (2 x 500 mg) PO DAILY 06/14/24 release (Depakote) #180 tabs quetiapine 25 mg tablet (Seroquel) 37.5 mg (1.5 x 25 m g) PO DAILY 06/14/24 #135 tabs budesonide-formoterol HFA 160 1 puff inhalation QID MD N 07/30/24 mcg-4.5 mcg/actuation aerosol shortness of breath or w heezing 90 inhaler (Symbicort) days #10.2 grams quetiapine 25 mg tablet (Seroquel) 37.5 mg (1.5 x 25 m g) PO DAILY #45 08/02/24 tabs blood pressure monitor (Blood #1 ea 08/19/24 Pressure Kit) nitroglycerin 0.4 mg sublingual 0.4 mg sublingual Q5-1 5M PRN pain 08/19/24 tablet #10 tabs gabapentin 300 mg capsule 300 mg PO BID #60 caps 09/02 hydrocodone 10 mg-acetaminophen 1 tab PO TID #90 tabs 09/02/24 325 mg tablet Allergies Allergy/AdvReac Type Severity Reaction Status Date / Time Penicillins Allergy Intermediate Unknown Verified 08/19/24 08:50 allergy reaction shellfish derived Allergy Intermediate Diarrhea Verified 08/19/24 08:50 PFSH [facility] Disclaimer: The information contained in this section may have been updated after the hemanth ibarra was seen, as this information can be updated by other users. Medical History Angina pectoris Suicidal thoughts Chronic eczema Asthma Headache Dizziness Restless sleeper NSTEMI (non-ST elevated myocardial infarction) Elevated troponin Crescendo angina CAD (coronary artery disease) Pulmonary HTN Daytime somnolence Dyspnea HLD (hyperlipidemia) Abnormal cardiovascular stress test Abnormal EKG Ex-smoker History of CVA (cerebrovascular accident) HHD (hypertensive heart disease) Surgical History H/O colonoscopy H/O neck surgery History of cholecystectomy Hx of appendectomy History of carpal tunnel surgery Previous back surgery Family History Other No significant family history Social History Smoking Status: Current every day smoker tobacco type: cigarettes alcohol intake: former substance use type: denies use current occupational status: unemployed and retired Travel in the last 8 weeks?: Inside the [place] household members: friend(s) housing: house caffeine: Yes Have you lived/traveled outside [place] in past 30 days?: No Contact w/someone who lives/traveled outside US past 30 days?: No Exposure to someone with infectious disease in past 14 days?: No Do you have a fever (greater than 100.4 F or 38 C)?: No Have you tested positive for COVID-19?: No Exposed to someone with COVID-19 in past 14 days?: No Do you have a sore throat?: No Do you have a cough?: No Do you have any weakness?: No Do you have any diarrhea?: No Are you experiencing any unusual bleeding?: No Do you have any muscle aches/pain?: No Do you have any abdominal pain?: No Are you experiencing loss of taste or smell?: No Other Medical History Have you received the Flu Vaccine for this season: Yes Have you received the Pneumonia Vaccine: Yes ROS Obtained: Yes All systems reviewed & no additional complaints except as documented Physical Exam General General appearance: alert and in no apparent distress Head Head exam: atraumatic and normocephalic Eye Eye exam: Present normal appearance, PERRL and EOMI ENT ENT exam: Present normal exam, normal oropharynx, mucous membranes moist and normal external ear exam Neck Neck exam: Present normal inspection, full ROM and trachea midline; Absent tenderness Chest Chest inspection: Present normal inspection and symmetric chest wall rise; Absent tenderness Respiratory Respiratory exam: Present normal lung sounds bilaterally; Absent respiratory distress, wheezes, stridor or accessory muscle use Cardiovascular Cardiovascular exam: Present regular rate and normal rhythm Abdominal Exam Abdominal exam: Present soft; Absent distention, tenderness or guarding Extremities Exam Extremities exam: Present full ROM, normal capillary refill and other (Right radial access site is clean, dry, no active bleeding. He has no large hematoma. He is neurovascularly intact distally in his digits with good pulses.); Absent tenderness or edema Back Exam Back exam: Present normal inspection and full ROM; Absent tenderness Neurological Exam Neurological exam: Present alert, oriented X3, CN II-XII intact and normal gait; Absent motor sensory deficit Psychiatric Psychiatric exam: Present normal affect and normal mood Skin Skin exam: Present warm and dry Medical Decision Making Medical Records Medical records reviewed: Yes I reviewed the patient's medical records. Screening: Per USPSTF and CDC recommendations, given the prevalence of disease in our region, it is our hospital?s policy to screen for HIV and viral Hepatitis for all patients aged 18 and over and those with ongoing risk factors. Piyush Inquiry Pt receiving controlled substance: No Vital Signs: 09/02/24 09:43 09/02/24 09:43 09/02/24 10:00 Temperature 97.7 F Temperature Source Oral Pulse Rate 71 69 Pulse Rate [Right Radial] 69 Respiratory Rate 18 Blood Pressure 120/88 114/70 Blood Pressure [Right Arm] 120/88 Blood Pressure Mean [Right Arm] 98 Blood Pressure Source [Right Arm] Automatic Cuff Blood Pressure Position [Right Arm] Sitting 02 Sat by Pulse Oximetry 97 96 95 Oxygen Delivery Method Room Air Lab Data Lab results reviewed: Yes I reviewed the patient's lab results. Medical Decision Narrative: In summary, this patient is a 64-year-old male presenting to the Emergency Department for evaluation of blood oozing from right radial access site. Differential diagnoses considered include but are not limited to vascular injury, hematoma, coagulopathy. Ruling out the most morbid conditions drove assessment. On exam, the patient has no active bleeding. He only had a scant amount of blood on the Band-Aid that was replaced this morning. He is neurovascularly intact with no large hematoma, pulses are good. Ultimately, I do not feel that labs or intervention are indicated aside from applying a new dressing. A 4 x 4 was folded to apply point pressure at the site of access and an Atiwo wrap was wrapped around the wrist. Patient was given instructions for wound care and close follow-up outpatient. He was discharged with strict return precautions Critical Care Critical Care Time Critical Care Time: No
[2024-09-02 10:40] VITALS: BP 119/75; PULSE 70; RESP 17; TEMP 36.6
== END 2024-09-02 10:42 | disposition home or self-care (01) ==
PROVIDERS: Emergency Provider Emergency Medicine; PCP Nurse Practitioner Family
DX: L76.22 Postprocedural hemorrhage of skin and subcutaneous tissue following other procedure (principal); Z98.61 Coronary angioplasty status; F17.210 Nicotine dependence, cigarettes, uncomplicated
CPT/HCPCS: 99282

== ENCOUNTER 2024-09-08 09:45 | Outpatient (CLI) | payer MEDICAID, SELFPAY ==
--- OUTSIDE RECORDS SUMMARY | 2024-09-08 09:48 | XMS_ITS | Clinical Summary ---
Author Organization [facility] Address [address] [place] [address] Care Team Providers Care Newspaper Editor Managing Name Role Phone Ciara Shay APRN Primary Care Provider [phone] Allergies Active Allergy Reactions Criticality Noted Date Comments Penicillins Rash,Unknown - Patie nt states they do not know rxn details Low 08/21/2010 Shellfish Allergy Anaphylaxis High 08/21/2010 Medications ibuprofen 800 MG tablet Take 0.5 tablets (400 mg total) by mouth every 6 (six) hours if needed for mild pain. 100 tablet 1 Active senna-docusate sodium (Senokot-S) 8.6-50 MG tablet Take 1 tablet by mouth 2 (two) times a day. 28 tablet 1 Active gabapentin (Neurontin) 100 MG capsule Take 1 capsule (100 mg total) by mouth 3 (three) times a day. 42 capsule 1 Active divalproex (Depakote) [address] tablet Take 500 mg by mouth 4 (four) times a day. 1 Active atorvastatin (Lipitor) 40 MG tablet TAKE 1 TABLET BY MOUTH ONCE DAILY 0 Active furosemide (Lasix) 20 MG tablet Take by mouth 1 (one) time each day. 1 Active aspirin 81 MG EC tablet Take 81 mg by mouth 1 (one) time each day. Active amitriptyline (Elavil) 50 MG tablet 1 Active Symbicort 80-4.5 MCG/ACT inhaler INHALE 1 PUFF BY MOUTH FOUR TIMES DAILY NEEDED FOR SHORTNESS OF BREATH OR WHEEZING 2 Active clopidogrel (Plavix) 75 MG tablet Take 75 mg by mouth 1 (one) time each day. 2 Active metoprolol tartrate (Lopressor) 25 MG tablet Take 25 mg by mouth 1 (one) time each day. 2 Active omeprazole (PriLOSEC) [address] capsule Take 40 mg by mouth 1 (one) time each day in the morning. 2 Active pantoprazole (Protonix) 40 MG EC tablet Take 40 mg by mouth 1 (one) time each day. 2 Active spironolactone (Aldactone) 25 MG tablet Take 25 mg by mouth 1 (one) time each day. 2 Active isosorbide mononitrate ER (Imdur) 30 MG 24 hr tablet Take 30 mg by mouth 1 (one) time each day. 2 Active tiZANidine (Zanaflex) 4 MG tablet Take 4 mg by mouth. 2 Active mirtazapine (Remeron) 30 MG tablet Take 30 mg by mouth 1 (one) time each day. 2 Active Hospital, Clinic, or Other Facility Administered Medication Ordered Dose Route Frequency Start Date End Date Status IV BagIndications:Failed back surgical syndrome 100 mL/hr IV Continuous 02/09/2021 Ac tive Active Problems Problem Noted Date Diagnosed Date Tremor of both hands 02/28/2021 Low back pain potentially associated with radicu lopathy 02/28/2021 S/P cervical spinal fusion 10/12/2020 Cervical radiculopathy at C6 08/23/2020 C6 cervical fracture 08/09/2020 Failed back syndrome 05/30/2020 Lumbar radicular pain 05/30/2020 Lumbosacral spondylosis 05/30/2020 Chronic low back pain 11/17/2019 DDD (degenerative disc disease), lumbar 11/17/19 20 Lumbar spinal stenosis 11/17/2019 Immunizations Immunization Administration Dates Next Due Influenza, injectable, quadrivalent 12/27/2019 Moderna COVID-19 Vaccine (Desizing Pad Operator) 12+ years ,05/25/2020 Tdap 01/21/2006 Family History Medical History Relation Name Comments Diabetes Other Relation Name Status Comments Other Social History Tobacco Use Types Packs/Day Years Used Date Smoking Tobacco: Never Cigars Qu it: 2006 Smokeless Tobacco: Never Alcohol Use Standard Drinks/Week Comments Never 0 (1 standard drink = 0.6 oz pur e alcohol) PHQ-2 Answer Date Recorded Patient Health Questionnaire-2 Score 0 12/28/2021 Sex and Gender Information Value Date Recorded Sex Assigned at Not on file Legal Sex Male 7:49 PM EDT Gender Identity Not on file Sexual Orientation Not on file Last Filed Vital Signs Vital Sign Reading Time Taken Comments Blood Pressure 116/77 12/28/2021 2:48 PM EDT Pulse 73 12/28/2021 2:48 PM EDT Temperature 37.3 C (99.1 F) 12/28/2021 2:48 PM EDT Respiratory Rate 16 10/11/2021 8:54 AM EDT Oxygen Saturation 96% 06/21/2021 2:43 PM EDT Inhaled Oxygen Concentration - - Weight 99.8 kg (220 lb) 12/28/2021 2:48 PM EDT Height 175.3 cm (5' 9 ) 12/28/2021 2:48 PM EDT Body Mass Index 32.49 12/28/2021 2:48 PM EDT Plan of Treatment Health Maintenance Due Date Last Done Comments [facility]-HIV Screening 1960 [facility]-Hepatitis C Screening 1960 [facility]-/Child/Adol SDOH Screenings 1960 [facility]- SDOH Screenings 1978 [facility]-Adult SDOH Screenings 1978 CT Colonography 2005 Colonoscopy 2005 FIT-DNA 2005 FIT 2005 FOBT 2005 Sigmoidoscopy 2005 [facility]-Colorectal Cancer Screening 2005 [facility]-Pneumococcal Vaccine: 50 + Years (1 of 1 - PCV) 2010 [facility]-Zoster Vaccines (1 of 2) 2010 [facility]-DTaP,Tdap,and Td Vaccine s (2 - Td or Tdap) 01/22/2016 01/21/2006 [facility]-Depression Screening 12/28/2022 12/28/2021 [id number] Vaccine ( season) 2023 11/30/2020, 06/22/2020, 05/25/2020 [facility]-Influenza Vaccine (Seaso n Ended) 2024 12/11/2021, 12/27/2019 [facility]-RSV Vaccine: 60+ Years o r (1 - 1-dose 75+ series) 2035 [facility]-Obesity Intervention Completed 12/28/2021 HPV Vaccines Aged Out No longer eligi ble based on patient's age to complete this topic [facility]-HIB Vaccines Aged Out No longer e ligible based on patient's age to complete this topic [facility]-Hepatitis A Vaccines Aged Out No longer eligible based on patient's age to complete this topic [facility]-IPV Vaccines Aged Out No longer e ligible based on patient's age to complete this topic [facility]-Rotavirus Vaccines Aged Out No lo nger eligible based on patient's age to complete this topic Insurance [address] [employer] [facility]ICAID [facility] Care Teams Newspaper Editor Managing Relationship Specialty Start Date End Date Ciara Shay APRN PCP - General 08/11/20
--- OUTSIDE RECORDS SUMMARY | 2024-09-08 09:48 | XMS_ITS | Data Portability ---
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 Plan of Treatment Reminders Order Date Submit Date Provider Last Modified By Organization Details Last Modified Time Details Appointments None recorded. Lab lipid panel, serum - room 3 2022 023 [facility], [address], [place], [address], 3 05:23:26 CBC w/ auto diff 2022 023 [facility], [address], [place], [address], 3 05:23:27 CMP, serum or plasma 2022 023 [facility], [address], [place], [address], 3 05:23:27 TSH, serum or plasma 2022 023 [facility], [address], [place], [address], 3 05:23:28 PSA, serum or plasma 2022 023 [facility], [address], [place], [address], 3 05:23:28 Referral pain management referral 2021 022 esdras Rodriguez MD, [address], [address], [place], [address], 2 11:37:33 Procedures None recorded. Surgeries None recorded. Imaging None recorded. Medication Orders atorvastati n 40 mg tablet 2022 023 [facility] #, [address] [facility], [facility] [address], [place], [id number], 3 08:25:53 mirtazapine 30 mg tablet 2022 023 [facility] #, [address] [facility], [facility] [address], [place], [id number], 3 09:46:23 sildenafil 50 mg tablet 2022 023 [facility] #, [address] [facility], [facility] [address], [place], [id number], 3 09:46:24 divalproex 500 mg tablet,diego yed release 2022 023 [facility] #, [address] [facility], [facility] [address], [place], [id number], 3 08:25:56 pantoprazol e 40 mg tablet,diego yed release 2022 023 [facility], [address] [facility], [facility] [address], [place], [id number], 3 09:46:21 aspirin 81 mg tablet,diego yed release 2022 023 [facility]38441, [address] [facility], [facility] [address], [place], [id number], 3 08:25:54 clopidogrel 75 mg tablet 2022 023 [facility] #, [address] [facility], [facility] [address], [place], [id number], 3 08:25:55 isosorbide mononitrate ER 30 mg tablet,exte nded release 24 hr 2022 023 [facility] #, [address] [facility], [facility] [address], [place], [id number], 3 08:25:55 metoprolol tartrate 25 mg tablet 2022 023 [facility] #, [address] [facility], [facility] [address], [place], [id number], 3 08:25:56 spironolact one 25 mg tablet 2022 023 [facility] #, [address] [facility], [facility] [address], [place], [id number], 3 09:46:22 atorvastati n 40 mg tablet 2022 023 [facility] #26458, [address] [facility], [facility] [address], [place], [id number], 3 11:21:29 sildenafil 50 mg tablet 2022 023 [facility] #35720, [address] [facility], [facility] [address], [place], [id number], 3 11:21:26 mirtazapine 30 mg tablet 2022 023 [facility] #23830, [address] [facility], [facility] [address], [place], [id number], 3 11:21:27 ibuprofen 800 mg tablet 2022 023 [facility] #, [address] [facility], [facility] [address], [place], [id number], 3 11:21:28 divalproex 500 mg tablet,diego yed release 2022 023 [facility], [address] [facility], [facility] [address], [place], [id number], 3 11:21:32 pantoprazol e 40 mg tablet,diego yed release 2022 023 [facility], [address] [facility], [facility] [address], [place], [id number], 3 11:21:28 aspirin 81 mg tablet,diego yed release 2022 023 [facility] #, [address] [facility], [facility] [address], [place], [id number], 3 11:21:31 clopidogrel 75 mg tablet 2022 023 [facility], [address] [facility], [facility] [address], [place], [id number], 3 11:21:28 isosorbide mononitrate ER 30 mg tablet,exte nded release 24 hr 2022 023 [facility] #40391, [address] [facility], [facility] [address], [place], [id number], 3 11:21:27 metoprolol tartrate 25 mg tablet 2022 023 [facility] #76449, [address] [facility] [facility], [place], [id number], 3 11:21:28 spironolact one 25 mg tablet 2022 023 [facility]20, [address] [facility] [address], [place], [id number], 3 11:21:31 atorvastati n 40 mg tablet 2021 022 [facility] #32921, [address] [facility], [place], [id number], 2 16:05:11 sildenafil 50 mg tablet 2021 [facility] #88762, [address] [facility], [facility] [address], [place], [id number], 2 16:04:44 mirtazapine 30 mg tablet 2021 [facility] #58064, [address] [facility], [facility] [address], [place], [id number], 2 16:04:41 ibuprofen 800 mg tablet 2021 [facility] #67653, [address] [facility], [facility] [address], [place], [id number], 2 16:05:14 divalproex 500 mg tablet,diego yed release 2021 022 [facility] #51595, [address] [facility], [facility] [address], [place], [id number], 2 16:06:36 pantoprazol e 40 mg tablet,diego yed release 2021 022 [facility] #34015, [address], [place], [id number], 16:04:42 aspirin 81 mg tablet,diego yed release 2021 [facility]90144, [address] [facility] [address], [place], [place], [id number], 16:05:06 clopidogrel 75 mg tablet 2021 [facility]04365, [address] [facility], [place], [id number], 16:04:43 metoprolol tartrate 25 mg tablet 2021 [facility]77964, [address] [facility], [place], [id number], 16:05:09 isosorbide mononitrate ER 30 mg tablet,exte nded release 24 hr 2021 [facility]68299, [address] [facility], [place], [id number], 16:05:01 spironolact one 25 mg tablet 2021 [facility]84144, [address] [facility], [place], [place], [id number], 16:04:43 atorvastati n 40 mg tablet 2021 [facility]20942, [address] [facility], [place], [place], [id number], 15:11:11 mirtazapine 30 mg tablet 2021 [facility] #75460, [address] [facility], [facility] [address], [place], [id number], 2 15:11:13 ibuprofen 800 mg tablet 2021 [facility] #17666, [address] [facility], [facility] [address], [place], [id number], 2 15:11:10 divalproex 500 mg tablet,diego yed release 2021 [facility] #07586, [address] [facility], [facility] [address], [place], [id number], 2 15:11:09 metoprolol tartrate 25 mg tablet 2021 [facility] #45121, [address] [facility], [facility] [address], [place], [id number], 2 15:11:10 aspirin 81 mg tablet,diego yed release 2021 022 [email or web address] 3 [facility] #02789, [address] [facility], [facility] [address], [place], [id number], 2 15:30:27 Patient TargetsNo targets recorded. Patient Instructions Encounter Date Encounter Id Patient Instructions Last Modified By Organization Details Last Modified Time 12/17/2021 [id number] chronic obstructive pulmonary disease (COPD): care instructions [email or web address] Not available 12/17/2021 15:11:01 Reason for Referral Pain Management Referral for Low back pain Referring Physician: Ciara Shay, Family Medicine, Encounter Date: 12/17/2021 Results Created Date Observation Date Name Description Value Unit Range Abnormal Flag Note LastModifiedBy Organization Detail LastModifiedTime 06/08/19 23 06/08/2022 LIPID PANEL , STAND SAMI cholesterol, total 188 mg/dL <200 normal Not Available [facility] [address], [place], [address], 06/08/2022 06:08:32 06/08/19 23 06/08/2022 LIPID PANEL , STAND SAMI HDL cholesterol 43 mg/dL > or = 40 normal Not Available [facility] [address] [facility], [place], [address], 06/08/2022 06:08:32 06/08/19 23 06/08/2022 LIPID PANEL , STAND SAMI triglyceride s 356 mg/dL <150 high If a non-f astin g speci men was colle cted, consi madi repea t trigl yceri de testi ng on a fasti ng speci men if clini judy indic ated. Brayan moore et al. J. of Clin. Lipid ol. 2015; 9:129 -169. Not Available [facility] [address] [facility], [place], [address], 06/08/2022 06:08:32 06/08/19 23 06/08/2022 LIPID PANEL , STAND SAMI LDL-choleste rol 98 mg/dL _(mireya c) normal Refer ence range : <100 Juli able range <100 mg/dL for prima ry preve ntion ; <70 mg/dL for patie nts with CHD or diabe tic patie nts with > or = 2 CHD risk facto rs. LDL-C is now calcu lated using the Dorene n-Hop kins calcu zach n, which is a valid ated novel juan albertoo d alexii chele nitin r accur acy than the Fried keo equat ion in the estim ation of LDL-C . Dorene beth SS et al. DEL. 2013; 310(1 9): 2061- 2068 (http ://ed carlosati on.Qu Tram arce tics. com/f aq/FA Q164) Not Available [facility] [address] [facility], [place], [address], 06/08/2022 06:08:32 06/08/19 23 06/08/2022 LIPID PANEL , STAND SAMI chol/HDLC ratio 4.4 (calc ) <5.0 normal Not Available [facility] [address] [facility] [place], [address], 06/08/2022 06:08:32 06/08/19 23 06/08/2022 LIPID PANEL , STAND SAMI non HDL cholesterol 145 mg/dL _(mireya c) <130 high For patie nts with diabe yina plus 1 major ASCVD risk facto r, treat ing to a non-H DL-C goal of <100 mg/dL (LDL- C of <70 mg/dL ) is consi santy a nettie ireland c optio n. Not Available [facility] [address] [place], [address], 06/08/2022 06:08:32 06/08/19 23 06/08/2022 COMPR EHENS DAYA METAB OLIC PANEL glucose 162 mg/dL 65-139 high Non-f astin g refer ence inter yaneli Not Available [facility] [address] [place], [address], 06/08/2022 06:08:32 06/08/19 23 06/08/2022 COMPR EHENS DAYA METAB OLIC PANEL urea nitrogen (BUN) 18 mg/dL 7-25 normal Not Available [facility] [address] [place], [address], 06/08/2022 06:08:32 06/08/19 23 06/08/2022 COMPR EHENS DAYA METAB OLIC PANEL creatinine 1.06 mg/dL 0.70-1 .35 normal Not Available [facility] [address] [place], [address], 06/08/2022 06:08:32 06/08/19 23 06/08/2022 COMPR EHENS DAYA METAB OLIC PANEL eGFR 79 mL/mi n/1.7 3m2 > or = 60 normal The eGFR is based on the CKD-E PI 2020 equat ion. To calcu late the new eGFR from a previ ous Creat inine or Cysta tin C resul t, go to https ://anh delarosa.florence spears/mick doss s/ kdoqi /gfr% 5Fcal culat or Not Available [facility] [address] [facility] [place], [address], 06/08/2022 06:08:32 06/08/19 23 06/08/2022 COMPR EHENS DAYA METAB OLIC PANEL BUN/creatini ne ratio NOT APPLIC ABLE (calc ) 6-22 Not Available [facility] [address] [facility] [place], [address], 06/08/2022 06:08:32 06/08/19 23 06/08/2022 COMPR EHENS DAYA METAB OLIC PANEL sodium 140 mmol/ L 135-14 6 normal Not Available [facility] [address] [facility] [place], [address], 06/08/2022 06:08:32 06/08/19 23 06/08/2022 COMPR EHENS DAYA METAB OLIC PANEL potassium 4.5 mmol/ L 3.5-5. 3 normal Not Available [facility] [address] [facility] [place], [address], 06/08/2022 06:08:32 06/08/19 23 06/08/2022 COMPR EHENS DAYA METAB OLIC PANEL chloride 106 mmol/ L 98-110 normal Not Available [facility] [address] [facility] [place], [address], 06/08/2022 06:08:32 06/08/19 23 06/08/2022 COMPR EHENS DAYA METAB OLIC PANEL carbon dioxide 22 mmol/ L 20-32 normal Not Available [facility] [address] [facility] [place], [address], 06/08/2022 06:08:32 06/08/19 23 06/08/2022 COMPR EHENS DAYA METAB OLIC PANEL calcium 9.8 mg/dL 8.6-10 .3 normal Not Available [facility] [address] [facility], [address], 06/08/2022 06:08:32 06/08/19 23 06/08/2022 COMPR EHENS DAYA METAB OLIC PANEL protein, total 6.8 g/dL 6.1-8. 1 normal Not Available [facility] [address] [facility] [place], [address], 06/08/2022 06:08:32 06/08/19 23 06/08/2022 COMPR EHENS DAYA METAB OLIC PANEL albumin 4.5 g/dL 3.6-5. 1 normal Not Available [facility] [address] [facility], [address], 06/08/2022 06:08:32 06/08/19 23 06/08/2022 COMPR EHENS DAYA METAB OLIC PANEL globulin 2.3 g/dL_ (calc ) 1.9-3. 7 normal Not Available [facility] [address] [facility] [place], [address], 06/08/2022 06:08:32 06/08/1906/08/2022 COMPR EHENS DAYA METAB OLIC PANEL albumin/glob ulin ratio 2.0 (calc ) 1.0-2. 5 normal Not Available [facility] [address] [facility] [place], [address], 06/08/2022 06:08:32 06/08/19 23 06/08/2022 COMPR EHENS DAYA METAB OLIC PANEL bilirubin, total 0.4 mg/dL 0.2-1. 2 normal Not Available [facility] [address] [facility] [place], [address], 06/08/2022 06:08:32 06/08/19 23 06/08/2022 COMPR EHENS DAYA METAB OLIC PANEL alkaline phosphatase 71 U/L 35-144 normal Not Available [facility] [address] [place], [address], 06/08/2022 06:08:32 06/08/19 23 06/08/2022 COMPR EHENS DAYA METAB OLIC PANEL AST 12 U/L 10-35 normal Not Available [facility] [address], [place], [address], 06/08/2022 06:08:32 06/08/19 23 06/08/2022 COMPR EHENS DAYA METAB OLIC PANEL ALT 15 U/L 9-46 normal Not Available [facility] [address], [place], [address], 06/08/2022 06:08:32 06/08/19 23 06/08/2022 CBC (INCL UDES DIFF/ PLT) white blood cell count 8.2 thous and/u L 3.8-10 .8 normal Not Available [facility] [address] [place], [address], 06/08/2022 05:23:27 06/08/19 23 06/08/2022 CBC (INCL UDES DIFF/ PLT) red blood cell count 4.64 melissa on/uL 4.20-5 .80 normal Not Available [facility] [address], [place], [address], 06/08/2022 05:23:27 06/08/19 23 06/08/2022 CBC (INCL UDES DIFF/ PLT) hemoglobin 15.1 g/dL 13.2-1 7.1 normal Not Available [facility] [address], [place], [address], 06/08/2022 05:23:27 06/08/19 23 06/08/2022 CBC (INCL UDES DIFF/ PLT) hematocrit 43.3 % 38.5-5 0.0 normal Not Available [facility] [address], [place], [address], 06/08/2022 05:23:27 06/08/19 23 06/08/2022 CBC (INCL UDES DIFF/ PLT) MCV 93.3 fL 80.0-1 00.0 normal Not Available [facility] [address], [place], [address], 06/08/2022 05:23:27 06/08/19 23 06/08/2022 CBC (INCL UDES DIFF/ PLT) MCH 32.5 pg 27.0-3 3.0 normal Not Available [facility] [address], [place], [address], 06/08/2022 05:23:27 06/08/19 23 06/08/2022 CBC (INCL UDES DIFF/ PLT) MCHC 34.9 g/dL 32.0-3 6.0 normal Not Available [facility] [address], [place], [address], 06/08/2022 05:23:27 06/08/19 23 06/08/2022 CBC (INCL UDES DIFF/ PLT) RDW 12.6 % 11.0-1 5.0 normal Not Available [facility] [address], [place], [address], 06/08/2022 05:23:27 06/08/19 23 06/08/2022 CBC (INCL UDES DIFF/ PLT) platelet count 278 thous and/u L 140-40 0 normal Not Available [facility] [address], [place], [address], 06/08/2022 05:23:27 06/08/19 23 06/08/2022 CBC (INCL UDES DIFF/ PLT) MPV 10.2 fL 7.5-12 .5 normal Not Available [facility] [address] [facility] [place], [address], 06/08/2022 05:23:27 06/08/19 23 06/08/2022 CBC (INCL UDES DIFF/ PLT) absolute neutrophils 3559 cells /uL 1500-7 800 normal Not Available [facility] [address] [facility], [place], [address], 06/08/2022 05:23:27 06/08/19 23 06/08/2022 CBC (INCL UDES DIFF/ PLT) absolute lymphocytes 3756 cells /uL 850-39 00 normal Not Available [facility] [address] [facility], [place], [address], 06/08/2022 05:23:27 06/08/19 23 06/08/2022 CBC (INCL UDES DIFF/ PLT) absolute monocytes 656 cells /uL 200-95 0 normal Not Available [facility] [address] [facility] [place], [address], 06/08/2022 05:23:27 06/08/19 23 06/08/2022 CBC (INCL UDES DIFF/ PLT) absolute eosinophils 148 cells /uL 15-500 normal Not Available [facility] [address] [facility] [place], [address], 06/08/2022 05:23:27 06/08/19 23 06/08/2022 CBC (INCL UDES DIFF/ PLT) absolute basophils 82 cells /uL 0-200 normal Not Available [facility] [address] [facility] [place], [address], 06/08/2022 05:23:27 06/08/19 23 06/08/2022 CBC (INCL UDES DIFF/ PLT) neutrophils 43.4 % normal Not Available [facility] [address] [facility] [place], [address], 06/08/2022 05:23:27 06/08/19 23 06/08/2022 CBC (INCL UDES DIFF/ PLT) lymphocytes 45.8 % normal Not Available [facility] [address] [place], [address], 06/08/2022 05:23:27 06/08/19 23 06/08/2022 CBC (INCL UDES DIFF/ PLT) monocytes 8.0 % normal Not Available [facility] [address] [place], [address], 06/08/2022 05:23:27 06/08/19 23 06/08/2022 CBC (INCL UDES DIFF/ PLT) eosinophils 1.8 % normal Not Available [facility] [address] [place], [address], 06/08/2022 05:23:27 06/08/19 23 06/08/2022 CBC (INCL UDES DIFF/ PLT) basophils 1.0 % normal Not Available [facility] [address] [place], [address], 06/08/2022 05:23:27 06/08/19 23 06/08/2022 TSH TSH 3.21 mIU/L 0.40-4 .50 normal Not Available [facility] [address] [place], [address], 06/08/2022 07:29:13 06/08/1906/08/2022 PSA, TOTAL PSA, total 0.86 NG/mL < or = 4.00 normal The total PSA value from this assay yuri benoit is stand ardiz ed again st the WHO stand sami. The test resul t will be appro ximat courtney 20% lower when ron red to the equim olar- stand ardiz ed total PSA (Ibarra man Coult er). Ron rison of seria l PSA resul ts shoul d be inter prete d with this fact in mind. This test was perfo rmed using the Sieme ns chemi lumin escen t metho d. Value s obtai dheeraj from diffe rent assay metho ds canno t be used inter meadows eably . PSA level s, regar dless of value , shoul d not be inter prete d as absol paulino evide nce of the prese nce or absen ce of disea se. Not Available [facility] [address] [facility], [place], [address], 06/08/2022 07:29:13 06/08/19 23 06/12/2022 HEMOG LOBIN A1C hemoglobin A1C 5.6 %_of_ total _HGB <5.7 normal For the purpo se of scree betsy for the prese nce of diabe yina: <5.7% Consi stent with the absen ce of diabe yina 5.7-6 .4% Consi stent with incre ased risk for diabe yina (pred iabet es) > or =6.5% Consi stent with diabe yina This assay resul t is consi stent with a decre ased risk of diabe yina. Curre ntly, no conse nsus exist s regar chele use of hemog lobin A1c for diagn osis of diabe yina in child nacho. Accor ding to Ameri can Diabe yina Assoc iatio n (ADA) guide lines , hemog lobin A1c <7.0% repre sents optim al contr ol in non-p regna nt diabe tic patie nts. Diffe rent metri cs may apply to speci fic patie nt popul ation s. Stand ards of Medic al Care in Diabe yina(A DA). Not Available [facility] [address] [facility], [place], [address], 06/12/2022 02:21:10 01/03/20 22 01/02/2022 MRI proce dure (PROC ) No observ ation record ed. [email or web address] [facility] [address], [place], [address], 01/21/2022 17:15:17 04/08/19 23 04/08/2022 XR, hip + pelvi s, unila teral , 2 or 3 view No observ ation record ed. [email or web address] [facility] [address], [place], [address], 04/08/2022 13:23:17 Result Notes None recorded. Problems Name Problem SNOMED Code Status Onset Date Resolution Date Notes Provider Name and Address Organization Details Recorded Time Enteric campylob eliuderios is [id number] Completed 202012/17/2021 Problem Code: A04.5; Problem Code Type: ICD-10; [employer]. 2 08:01:49 Tinea corporis [id number] Completed 201912/17/2021 Problem Code: B35.4; Problem Code Type: ICD-10; [employer]. 2 08:02:15 Superfic ial mycosis [id number] Completed 201912/17/2021 Problem Code: B36.9; Problem Code Type: ICD-10; [employer] 2 08:01:49 Neoplasm of bone [id number] Completed 201912/17/2021 [employer] 2 08:01:48 Primary insomnia [id number] Active 2019 Problem Code: F51.01; Problem Code Type: ICD-10; Not Available [email or web address] 2 22:42:38 Male erectile disorder Active 2019 [employer] 2 08:02:08 Mixed hyperlip idemia 323118340 Active 2019 Problem Code: E78.2; Problem Code Type: ICD-10; Not Available [email or web address] 2 22:42:38 Tension- type headache [id number] Completed 202112/17/2021 Problem Code: G44.209; Problem Code Type: ICD-10; TIGRE PENANER mindy, [employer] 2 08:01:49 Impacted cerumen of bilatera l ears [id number] 97516 Completed 201912/17/2021 Problem Code: H61.23; Problem Code Type: ICD-10; TIGRE guillen, [employer] 2 08:01:48 Otogenic otalgia 02356681 Completed 201903/14/2020 Not Available [facility] 2 22:42:38 Bilatera l hearing loss [id number] Completed 201912/17/2021 TIGREPER PENANER mindy, [employer] 2 08:01:49 Otogenic otalgia 52594998 Completed 202106/11/2021 Not Available [facility] 2 22:42:38 Mitral valve regurgit ation 88864018 Active 2019 Problem Code: I34.0; Problem Code Type: ICD-10; Not Available [facility] 2 22:42:38 Acute sinusiti s 65098525 Completed 202112/17/2021 Problem Code: J01.90; Problem Code Type: ICD-10; TIGRE PENANER mindy, [employer] 2 08:01:48 Allergic contact dermatit is 676627569 Completed 201912/17/2021 Problem Code: L23.9; Problem Code Type: ICD-10; [facility] 2 08:01:49 Pain of left wrist 39209089602 9102 Completed 202006/12/2020 Problem Code: M25.532; Problem Code Type: ICD-10; Not Available [facility] 2 22:42:39 Neck pain 12061056 Completed 201912/17/2021 TIGRE guillen, [employer] 2 08:01:49 Low back pain 743964641 Active 2019 Problem Code: M54.5; Problem Code Type: ICD-10; Not Available [facility] 2 22:42:39 Myositis 86184552 Completed 202112/17/2021 Problem Code: M60.9; Problem Code Type: ICD-10; TIGRE guillen, [employer] 2 08:01:49 Finding related to ability to pass urine 038047580 Active 2020 Not Available [facility] 2 22:42:39 Tachycar mau 0419851 Completed 202005/24/2021 Not Available [facility] 2 22:42:39 Dyspnea 913147781 Completed 201912/17/2021 Problem Code: R06.02; Problem Code Type: ICD-10; TIGRE guillen, [employer] 2 08:01:49 Dyspnea 114442834 Completed 202005/24/2021 Problem Code: R06.02; Problem Code Type: ICD-10; TIGRE guillen, [employer] 2 08:01:49 Chest pain 83495419 Completed 202005/24/2021 Problem Code: R07.9; Problem Code Type: ICD-10; Not Available [facility] 2 22:42:40 Stool color abnormal 522492841 Completed 201903/14/2020 Problem Code: R19.5; Problem Code Type: ICD-10; Not Available [facility] 2 22:42:40 Diarrhea 94053924 Completed 202012/17/2021 Problem Code: R19.7; Problem Code Type: ICD-10; TIGRE guillen, [employer] 2 08:01:49 Retentio n of urine 517678364 Completed 202112/17/2021 TIGRE guillen, [employer] 2 08:01:49 Nocturia 198264033 Active 2019 Problem Code: R35.1; Problem Code Type: ICD-10; Not Available [facility] 2 22:42:41 Retentio n of urine 954986767 Completed 201903/14/2020 [employer] 2 08:01:49 Chronic fatigue syndrome 62543523 Completed 201912/17/2021 Problem Code: R53.82; Problem Code Type: ICD-10; [employer]. 2 08:01:49 Chronic fatigue syndrome 35861249 Completed 202011/03/2020 Problem Code: R53.82; Problem Code Type: ICD-10; [employer]. 2 08:01:49 Localize d edema 426070972 Active 2019 Problem Code: R60.0; Problem Code Type: ICD-10; Not Available [facility] 2 22:42:42 Liver function tests outside referenc e range 756816192 Completed 201911/03/2020 Problem Code: R94.5; Problem Code Type: ICD-10; Not Available [facility] 2 22:42:43 COVID-19 560855683 Completed 202112/17/2021 Problem Code: U07.1; Problem Code Type: ICD-10; TIGRE guillen, [employer] 2 08:01:49 General examinat ion of patient Completed 201903/14/2020 Not Available [facility] 2 22:42:43 Pre-surg giles testing Completed 202012/17/2021 Problem Code: Z01.810; Problem Code Type: ICD-10; [employer]. 2 08:01:48 Pre-surg giles evaluati on Completed 201912/17/2021 TIGRE PENANER [employer] 2 08:01:48 Screenin g for malignan t neoplasm of colon Completed 201912/17/2021 TIGRE PENANER mindy, [employer] 2 08:01:49 Cardiome avril 3341854 Active 2019 Problem Code: I51.7; Problem Code Type: ICD-10; Not Available [facility] 2 22:42:44 Choleste rol screenin g Completed 201912/17/2021 TIGRE PENANER mindy, [employer] 2 08:01:49 Influenz a vaccine needed 58034242013 06 Completed 201903/14/2020 Problem Code: Z23; Problem Code Type: ICD-10; Not Available [facility] 2 22:42:45 Body mass index 30+ - obesity 278955766 Completed 201912/17/2021 Problem Code: Z68.30; Problem Code Type: ICD-10; TIGRE PENANER mindy, [employer] 2 08:01:48 Body mass index 30+ - obesity 236277660 Completed 202006/12/2020 Problem Code: Z68.30; Problem Code Type: ICD-10; TIGRE PENANER mindy, [employer] 2 08:01:48 Body mass index 30+ - obesity 408976638 Completed 202006/12/2020 Problem Code: Z68.32; Problem Code Type: ICD-10; TIGRE PENANER [employer] 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 Procedures Surgical History Date Name Laterality Status Provider Name and Address Organization Details Recorded Time 04/13/19 cholecystectomy completed Not Available [facility] 08/2021 22:56:08 Back Surgery completed [employer] 12/17/2021 14:02:03 Appendectomy completed [employer] 12/17/2021 14:02:25 Imaging Results None recorded. Procedure Notes None recorded. Medical Equipment None Reported. 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 2 13:56:09 Medications Name Sig Start Date Stop Date Status Note LastModified by Organization Details LastModified Time amantadine HCl 100 mg tablet active Not Available Not Available Not Available furosemide 40 mg tablet TAKE 1 TABLET BY MOUTH DAILY active Not Available Not Available No t Available atorvastati n 40 mg tablet TAKE 1 TABLET BY MOUTH EVERY DAY active Not Available Not Available No t Available atorvastati n 80 mg tablet TAKE 1 TABLET BY MOUTH DAILY active Not Available Not Available No t Available sildenafil 50 mg tablet TAKE 1 TABLET BY MOUTH ONCE DAILY NEEDED FOR SEXUAL ACTIVITY active Not Available Not Available No t Available triamcinolo ne acetonide 0.5 % topical cream apply a thin layer to the affected area(s) by topical route 2 times per day 11/03 completed Not Available Not Available Not Available azithromyci n 250 mg tablet take 2 tablets (500 mg) by oral route once daily for 1 day then 1 tablet (250 mg) by oral route once daily for 4 days 06/11 completed Not Available Not Available Not Available aspirin 325 mg tablet Take 1 tablet every day by oral route. 03/11 completed Not Available Not Available Not Available ibuprofen 800 mg tablet TAKE 1 TABLET(80 0 MG) BY MOUTH THREE TIMES DAILY WITH FOOD NEEDED FOR PAIN active Not Available Not Available No t Available tizanidine 4 mg tablet TAKE 1 TABLET BY MOUTH THREE TIMES DAILY NEEDED FOR MUSCLE SPASMS active Not Available Not Available No t Available hydrocodone 5 mg-acetamin ophen 325 mg tablet TAKE 1 TABLET BY MOUTH THREE TIMES DAILY active Not Available Not Available No t Available fluconazole 200 mg tablet take 1 tablet (200 mg) by oral route once daily 10/06 completed Not Available Not Available Not Available isosorbide mononitrate ER 30 mg tablet,exte nded release 24 hr Take 1 tablet(s) every day by oral route. active Not Available Not Available No t Available acetaminoph en 300 mg-codeine 30 mg tablet take 1 tablet by oral route every 4-6 hours as needed 06/12 completed Not Available Not Available Not Available clopidogrel 75 mg tablet TAKE 1 TABLET BY MOUTH DAILY active Not Available Not Available No t Available divalproex 500 mg tablet,diego yed release TAKE 2 TABLETS BY MOUTH TWICE DAILY 2022 active Not Available Not Available Not Avai lable omeprazole 40 mg capsule,del ayed release TAKE 1 CAPSULE BY MOUTH EVERY MORNING 12/17 completed Not Available Not Available Not Available aspirin 81 mg tablet,diego yed release TAKE ONE TABLET BY MOUTH ONCE DAILY active Not Available Not Available No t Available amitriptyli ne 50 mg tablet TAKE 1 TABLET(50 MG) BY MOUTH EVERY DAY AT BEDTIME 03/11 completed Not Available Not Available Not Available sildenafil 100 mg tablet take 1 tablet (100 mg) by oral route once daily as needed approxima tely 1 hour before sexual activity 09/12 completed Not Available Not Available Not Available spironolact one 25 mg tablet TAKE 1 TABLET BY MOUTH EVERY DAY active Not Available Not Available No t Available prednisolon e acetate 1 % eye drops,suspe nsion INSTILL 1 DROP INTO BOTH EYES 3 TIMES A DAY FOR 7 DAYS 03/11 completed Not Available Not Available Not Available tamsulosin 0.4 mg capsule take 1 capsule (0.4 mg) by oral route once daily 1/2 hour following the same meal each day 03/11 completed Not Available Not Available Not Available trazodone 100 mg tablet TAKE 1 TABLET BY MOUTH ONCE DAILY AT BEDTIME 12/17 completed Not Available Not Available Not Available dicyclomine 20 mg tablet take 1 tablet (20 mg) by oral route 3 times per day prn abdominal pain 06/12 completed Not Available Not Available Not Available hydrocodone 7.5 mg-acetamin ophen 325 mg tablet TAKE 1 TABLET BY MOUTH THREE TIMES DAILY active Not Available Not Available No t Available pantoprazol e 40 mg tablet,diego yed release TAKE 1 TABLET BY MOUTH DAILY active Not Available Not Available No t Available mirtazapine 30 mg tablet TAKE 1 TABLET BY MOUTH EVERY NIGHT AT BEDTIME active Not Available Not Available No t Available divalproex ER 500 mg tablet,exte nded release 24 hr TAKE 2 TABLETS BY MOUTH TWICE DAILY active Not Available Not Available No t Available lidocaine 5 % topical patch APPLY 1 PATCH TOPICALLY TO THE SKIN DAILY. LEAVE ON MOST PAINFUL AREA FOR UP TO 12 HOURS THEN REMOVE active Not Available Not Available No t Available hydrocodone -acetaminop hen 325-10 mg tablet TAKE 1 TABLET BY MOUTH EVERY 6 HOURS NEEDED FOR MODERATE TO SEVERE PAIN 11/03 completed Medic ation ID: ''; Medic ation Name: 'HYDR OCODO NE/AC ETAMI NOPHE N 5 T'; Marlin ptTyp e: ''; Not Available Not Available Not Available gabapentin 300 mg capsule TAKE 1 CAPSULE BY MOUTH TWICE DAILY active Not Available Not Available No t Available diclofenac sodium 75 mg tablet,diego yed release TAKE 1 TABLET BY MOUTH TWICE DAILY active Not Available Not Available No t Available furosemide 20 mg tablet TAKE 1 TABLET BY MOUTH EVERY MORNING NEEDED FOR SWELLING 12/17 completed Not Available Not Available Not Available gabapentin 100 mg capsule TAKE 1 CAPSULE BY MOUTH TWICE DAILY active Not Available Not Available No t Available ketoconazol e 2 % topical cream apply to the affected area(s) by topical route twice daily for 2 weeks 11/03 completed Not Available Not Available Not Available ondansetron 4 mg disintegrat ing tablet TAKE 1 TABLET BY MOUTH FOUR TIMES DAILY NEEDED 03/11 completed Medic ation ID: ''; Medic ation Name: 'ONDA NSETR ON 4MG ODT Table ts'; Marlin ptTyp e: ''; Not Available Not Available Not Available spironolact one 50 mg tablet TAKE 1 TABLET BY MOUTH DAILY active Not Available Not Available No t Available azithromyci n 500 mg tablet take 1 tablet (500 mg) by oral route once daily for 3 days 06/12 completed Not Available Not Available Not Available tadalafil 10 mg tablet take 1 tablet (10 mg) by oral route as needed approxima tely 1 hour before sexual activity 03/11 completed Not Available Not Available Not Available metoprolol tartrate 25 mg tablet TAKE 1 TABLET(25 MG) BY MOUTH TWICE DAILY active Not Available Not Available No t Available Symbicort 80 mcg-4.5 mcg/actuati on HFA aerosol inhaler INHALE 1 PUFF BY MOUTH FOUR TIMES DAILY NEEDED FOR SHORTNESS OF BREATH OR WHEEZING 03/11 completed Not Available Not Available Not Available diclofenac 1 % topical gel active Not Available Not Available Not Available prasugrel HCl 10 mg tablet TAKE 1 TABLET BY MOUTH DAILY active Not Available Not Available No t Available doxepin 6 mg tablet take 1 tablet (6 mg) by oral route once daily at night 30 minutes before bedtime on an empty stomach 11/13 completed Not Available Not Available Not Available flu vaccine quad 2019- (6 mos up) 60 mcg (15 mcg x 4)/0.5 mL IM susp inject 0.5 millilite r (60 mcg) by intramusc ular route once 03/14 completed Not Available Not Available Not Available [employer] COVID-19 Ag Self Test kit TEST DIRECTED TODAY 06/07 completed Not Available Not Available Not Available Vitals Date Recorded Body height Body mass index (BMI) Body weight Body temperature Heart rate Oxygen saturation Oxygen saturation in Arterial blood by Pulse oximetry Systolic blood pressure Diastolic blood pressure Provider Name and Address Organization Details Last Updated DateTime 3 175.26 cm 32.8 kg/m2 846612. 51 g 98.1 [degF] 81 /min 96 % 96 % 110 mm[Hg] 70 mm[Hg] [employer] 3 10:49:11 Date Recorded Body height Body mass index (BMI) Body weight Heart rate Oxygen saturation Oxygen saturation in Arterial blood by Pulse oximetry Systolic blood pressure Diastolic blood pressure Provider Name and Address Organization Details Last Updated DateTime 3 175.26 cm 31.8 kg/m2 55222.4 6 g 64 /min 95 % 95 % 108 mm[Hg] 70 mm[Hg] Kristin Pearson [employer] 3 07:57:48 Date Recorded Body height Body mass index (BMI) Body weight Body temperature Heart rate Oxygen saturation Oxygen saturation in Arterial blood by Pulse oximetry Systolic blood pressure Diastolic blood pressure Provider Name and Address Organization Details Last Updated DateTime 2 175.26 cm 31 kg/m2 10579.4 g 98 [degF] 70 /min 96 % 96 % 110 mm[Hg] 60 mm[Hg] [employer] 2 14:04:06 Date Recorded Body height Body mass index (BMI) Body weight Body temperature Heart rate Oxygen saturation Oxygen saturation in Arterial blood by Pulse oximetry Systolic blood pressure Diastolic blood pressure Provider Name and Address Organization Details Last Updated DateTime 2 175.26 cm 32.5 kg/m2 64442.3 2 g 99 [degF] 77 /min 95 % 95 % 120 mm[Hg] 78 mm[Hg] [employer] 2 07:40:52 Social History Question Answer Notes LastModified by Organizat ion Details LastModified Time Tobacco Smoking Status Former Smoker 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 12/17/2021 08:03:37 Do You Have An Advance Directive? Yes [email or web address] Information not available 12/17/2021 Are You Blind Or Do You Have Difficulty Seeing? No [email or web address] Information not available 12/17/2021 What Is Your Level Of Caffeine Consumption? Occasional Information not available 10/08/2022 In The 14 Days Before Symptom Onset, Have You Had Close Contact With A Laboratory-confir med COVID-19 While That Case Was Ill? No [email or web address] Information not available 12/17/2021 In The 14 Days Before Symptom Onset, Have You Had Close Contact With A Person Who Is Under Investigation For COVID-19 While That Person Was Ill? No Information not available 12/17/2021 Have You Been To An Area Known To Be High Risk For COVID-19? No [email or web address] Information not available 12/17/2021 Are You Deaf Or Do You Have Serious Difficulty Hearing? No [email or web address] Information not available 12/17/2021 What Type Of Diet Are You Following? REGULAR [email or web address] Information not available 12/17/2021 Do You Have A Medical Power Of Jailor? Yes [email or web address] Information not available 12/17/2021 What Was The Date Of Your Most Recent Tobacco Screening? 10/08/2022 Information not available 10/08/2022 What Is Your Current Pack Years? [email or web address] ars [email or web address] Information not available 12/17/2021 What Is Your Relationship Status? [email or web address] Information not available 12/17/2021 Has Tobacco Cessation Counseling Been Provided? Yes Information not available 10/08/2022 On What Date Was Tobacco Cessation Counseling Provided? 10/08/2022 Information not available 10/08/2022 Have You Recently Traveled Abroad? No [email or web address] Information not available 12/17/2021 Do You Have Difficulty Walking Or Climbing Stairs? No [email or web address] Information not available 12/17/2021 Are You Currently In School? No [email or web address] Information not available 12/17/2021 Do You Have Any Dietary Restrictions? No [email or web address] Information not available 12/17/2021 Sex: Male Functional Status Question Answer Note LastModified by Organizat ion Details LastModified Time Do you use any illicit or recreational drugs? No Information not available 10/08/2022 What is your level of alcohol consumption? Occasional Information not available 10/08/2022 Do you have transportation difficulties? No [email or web address] Information not available 12/17/2021 Are you able to walk? YESWOREST [email or web address] Information not available 12/17/2021 Do you have difficulty doing errands alone? No [email or web address] Information not available 12/17/2021 Are you able to care for yourself? Yes [email or web address] Information n ot available 12/17/2021 Do you have difficulty dressing or bathing? No [email or web address] Information not available 12/17/2021 What is your exercise level? Occasional [email or web address] Information not available 12/17/2021 Mental Status Question Answer Note LastModified by Organization D etails LastModified Time Do you have difficulty concentrating, remembering or making decisions? No [email or web address] Information no t available 12/17/2021 Family History Relationship Description Onset Age of this Age Resolved Age Notes LastModified by Organization Details LastModified Time Mother Family history of hyperlipidem ia [email or web address] Not available 12/17 14:00:24 Mother Family history of Hypertension [email or web address] Not available 14:00:27 Mother Diabetes mellitus [email or web address] Not available 12/17 14:00:37 Medical History Condition Response Allergies (Food, seasonal, environmental ) Y Acid Reflux (GERD) Y Asthma Y High Cholesterol Y Immunizations Vaccine Type Date Status Note Provider Nam e and Address Organization Details Recorded Time Influenza, split virus, quadrivalent, preservative 0 completed TIGRE guillen [employer] 03/11/2022 15:14:29 Tdap 6 completed TIGRE guillen [employer] 03/11/2022 15:14:29 COVID-19, mRNA, LNP-S, PF, 100 mcg/0.5mL dose or 50 mcg/0.25mL dose 1 completed TIGRE guillen [employer] 03/11/2022 15:14:29 Influenza, MDCK, quadrivalent, PF 2 completed TIGRE guillen [employer] 03/11/2022 15:14:29 COVID-19, mRNA, LNP-S, PF, 100 mcg/0.5mL dose or 50 mcg/0.25mL dose 1 completed TIGRE guillen [employer]. 03/11/2022 15:14:29 COVID-19, mRNA, LNP-S, PF, 100 mcg/0.5mL dose or 50 mcg/0.25mL dose 1 completed TIGRE guillen [employer] 03/11/2022 15:14:29 Past Encounters Encounter ID Performer Location Encounter Start Date Encounter Closed Date Diagnosis/Indication Diagnosis SNOMED-CT Code Diagnosis ICD10 Code Diagnosis Note [id number] [place] [phone] 12/17/2021 13:37:47 12/17/2021 14:34:11 Mixed hyperlipidemia 352679797 E78.2 Primary insomnia 3705866 F51.01 Low back pain 294217033 M54.50 Essential hypertension 52090982 I10 Gastroesop hageal reflux disease without esophagitis 932697276 K21.9 Erectile dysfunction 860 025720 F52.21 Chronic ob structive pulmonary disease 87601048 J44.9 Seizure disorder 8943099 02 G40.909 [id number] Ciara Shay [place] [id number] 03/11/2022 14:43:36 03/11/2022 15:42:25 Localized edema 895169558 R60.0 Low back pain 978611782 M54.50 Mixed hyperlipidemia 267 019781 E78.2 Essential hypertension 44398490 I10 Seizure disorder 2534135 02 G40.909 Primary insomnia 9922686 F51.01 Chronic ob structive pulmonary disease 70304075 J44.9 Erectile dysfunction 860 212366 F52.21 Gastroesop hageal reflux disease without esophagitis 013307317 K21.9 [id number] [place] [id number] 06/07/2022 10:36:37 06/07/2022 11:23:08 Finding related to ability to pass urine 357401116 N40.1 Mixed hyperlipidemia 267 451912 E78.2 Chronic fa tigue syndrome 17677237 R53.82 Essential hypertension 77094825 I10 Seizure disorder 1454869 02 G40.909 Low back pain 813971249 M54.50 Primary insomnia 4247013 F51.01 Gastroesop hageal reflux disease without esophagitis 549430557 K21.9 Erectile dysfunction 860 069696 F52.21 Localized edema 77071760 4 R60.0 Body mass index 30+ - obesity 866749791 Z68.32 [id number] [place] [id number] 10/08/2022 07:46:24 10/08/2022 08:38:44 Essential hypertension 57270427 I10 Mixed hyperlipidemia 267 473513 E78.2 Seizure disorder 0669775 02 G40.909 Primary insomnia 5868397 F51.01 Gastroesop hageal reflux disease without esophagitis 651503448 K21.9 Erectile dysfunction 860 447321 F52.21 Localized edema 63762206 4 R60.0 Body mass index 30+ - obesity 977142507 Z68.32 Health Concerns Section Related Observation LastModified by Organization Detai ls LastModified Time None Recorded Concern Status LastModified by Organization Details LastModified Time None Recorded Advance Directives Directive Y: Payers Insurance Date Sequence Insurance Name Policy Number Policy Stone Covered Member ID Stone Member ID Guarantor Name 11/07/2022 1 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 No Have you been in the hospital since your last visit? No Treatment Selection Please select all that apply: I require treatment/medication for chronic pain - No I have had a heart catheterization - No I have had arterial stents placed - No I have had a colonoscopy - No Dentist Confirmation Do you have a Dentist? No [facility] 12/17/2021 Ciara KATHE Shay [address] [facility], [place], [address], [employer]. 12/17/2021 15:13:35 03/11/2022 text/html pt here today fo r medication refills. pt states that hes doing okay on medications. pt states that he was recently at the heart doctor and his bp was high (but according to records it was low) and that they told him it was probably due to him wearing his cpap machine. he went back to heart doc and his bp was WNL. today bp is WNL. pt brought in his med bottles and he had 2 bottles of metoprolol and spironolactone and pt states that he has been taking out of both bottles. so pt has been taking a double dose of both of those meds. tigre combined the bottles so that the pt only has one bottle of each. pt then c/o his treatment on his back from the pain doctor. pt states that he would just like some pain pills. Ciara Shay APRN [address] [place], [address], [employer]. 03/12/2022 13:13:17 06/07/2022 text/html pt here today fo r medication refills. pt states hes doing well on current medication regime and has no new complaints today. pt states that he hasnt see dr rodriguez in a while and that the injections werent helping anyway. advised pt to call and get a f/u appt so that he can possibly do other interventions. ordered routine labwork today. Ciara Shay APRN [address] [place], [address], [employer]. 06/07/2022 11:36:45 10/08/2022 text/html pt here today fo r medication refills. pt states hes doing well on current medication regime and has no new complaints today. i checked pt NOLAN and seen that dr bean wrote for pt pain medication twice and i asked pt about it and he states that he has been going over there because no one will give me lortabs . pt states that i have jumped through all the hoops to get the pain medicine but no one will give it to me . pt has had MRI and has been going to pain mgt but has been given injections. pt seen dr bean and was prescribed controlled medication. pt states that dr bean also did lab work and increased the statin. i told pt that he needs to either come here or see dr bean for PCP because he cannot do both because i didnt know he did labwork or changed his medications and if i didnt look at his NOLAN i wouldnt have known he prescribed pain medication. pt asked if i would prescribe him lortabs and i told him no he would still need to continue to see pain mgt and pt states then he will see dr bean because he writes him lortabs. Ciara Shay APRN [address] [facility], [place], [address], [facility] [employer] 10/08/2022 09:47:47
[2024-09-08 10:54] LABS: T4 (Thyroxine) 7.3 ug/dl (5.53-11.0)
[2024-09-08 11:07] LABS: Thyroid Stimulating Hormone 5.37 uIU/mL (0.465-4.68)
== END 2024-09-08 23:59 | disposition home or self-care (01) ==
LOC: LAB 09:46
PROVIDERS: PCP Nurse Practitioner Family; Visit Provider Nurse Practitioner Family
DX: R79.89 Other specified abnormal findings of blood chemistry (principal); Z79.899 Other long term (current) drug therapy
CPT/HCPCS: 36415; 84436; 84443

== ENCOUNTER 2024-09-17 08:56 | Outpatient (CLI) | payer MEDICAID, SELFPAY ==
--- OUTSIDE RECORDS SUMMARY | 2024-09-17 08:59 | XMS_ITS | Data Portability ---
Author Organization [facility] Address [address] [place] [address] Care Team Providers Care Store Gift Wrap Associate Name Role Phone KALPANA MONTELONGO Primary Care Provider Assessment Encounter Date Assessment Date Assessment LastModified by Organization Details LastModified Time 05/06/2019 05/06/2019 Medications adjusted. Cystoscopy to evaluate lower urinary tract. [email or web address] Not available 05/08/2019 16:17:02 05/13/2019 05/13/2019 DATE OF PROCEDUR E: 05/13/19 PROCEDURE PERFORMED: Cystourethroscopy SURGEON: Trung Gilliam M.D. ANESTHESIA: Local BLOOD LOSS: None PREOPERATIVE INDICATIONS: Benign prostatic hyperplasia with lower urinary symptoms POSTOPERATIVE INDICATIONS: Benign prostatic hyperplasia with lower urinary symptoms DESCRIPTION OF PROCEDURE: Patient was correctly identified in preoperative holding area. Informed consent was obtained. Risks and benefits were reviewed with patient. Patient was taken to procedure room and positioned supine position. All pressure points padded. Proper timeout procedure completed. Genitourinary area prepped and draped in the normal sterile fashion. Lidocaine jelly instilled for local analgesia. Flexible cystoscope advanced through the urethra. Bladder mucosa without evidence of erythema, papillary bladder mass, foreign body. Ureteral orifices in normal anatomic position. Prostatic urethra with moderate obstruction. The urethra was without evidence of stricture or stenosis. The scope was withdrawn atraumatically. Patient tolerated procedure well. DISPOSITION: Patient was taken to the recovery in stable condition. Discharged home with instructions for outpatient follow-up. [email or web address] Not available 05/16/2019 19:04:39 Plan of Treatment Reminders Order Date Submit Date Provider Last Modified By Organization Details Last Modified Time Details Appointments None recorded . Lab urinalys is, dipstick , auto 2019 020 [email or web address] [facility], [address] [place] [address] [address], [place], [address], 0 16:16:46 Referral None recorded . Procedures None recorded . Surgeries cystosco py (SURG) 2019 020 chris Bronson [facility], [address] [facility], [facility] [address], [place], [address], 0 12:06:28 Imaging None recorded . Medication Orders Uroxatra l 10 mg tablet,e xtended release 2019 020 kristopher [facility], [address] [place], [address], 0 15:47:50 Patient TargetsNo targets recorded. Patient InstructionsNo instructions recorded. Reason for Referral None Reported. Results Created Date Observation Date Name Description Value Unit Range Abnormal Flag Note LastModifiedBy Organization Detail LastModifiedTime 05/06/19 20 05/06/2019 urina lysis , dipst ick, auto Unknown Analyte Yellow Not Available [facility] With [address], [place], [address], 05/06/2019 15:46:32 05/06/19 20 05/06/2019 urina lysis , dipst ick, auto Unknown Analyte Clear Not Available [facility] With [address], [place], [address], 05/06/2019 15:46:32 05/06/19 20 05/06/2019 urina lysis , dipst ick, auto Unknown Analyte 1.005 Not Available [facility] With [address], [place], [address], 05/06/2019 15:46:32 05/06/19 20 05/06/2019 urina lysis , dipst ick, auto Unknown Analyte 1.003 - 1.035 Not Available [facility] With [address], [place], [address], 05/06/2019 15:46:32 05/06/19 20 05/06/2019 urina lysis , dipst ick, auto Unknown Analyte 7.0 Not Available [facility] With [address], [place], [address], 05/06/2019 15:46:32 05/06/19 20 05/06/2019 urina lysis , dipst ick, auto Unknown Analyte 5.0 - 8.0 Not Available [facility] [address], [place], [address], 05/06/2019 15:46:32 05/06/19 20 05/06/2019 urina lysis , dipst ick, auto Unknown Analyte Negati ve Not Available [facility] With [address] [place], [address], 05/06/2019 15:46:32 05/06/19 20 05/06/2019 urina lysis , dipst ick, auto Unknown Analyte Negati ve Not Available [facility] [address] [place], [address], 05/06/2019 15:46:32 05/06/19 20 05/06/2019 urina lysis , dipst ick, auto Unknown Analyte Negati ve Not Available [facility] With [address] [place], [address], 05/06/2019 15:46:32 05/06/19 20 05/06/2019 urina lysis , dipst ick, auto Unknown Analyte Negati ve Not Available [facility] With [address] [place], [address], 05/06/2019 15:46:32 05/06/19 20 05/06/2019 urina lysis , dipst ick, auto Unknown Analyte Negtiv e Not Available [facility] With [address], [place], [address], 05/06/2019 15:46:32 05/06/19 20 05/06/2019 urina lysis , dipst ick, auto Unknown Analyte Negati ve - Trace Not Available [facility] With [address], [place], [address], 05/06/2019 15:46:32 05/06/19 20 05/06/2019 urina lysis , dipst ick, auto Unknown Analyte Normal Not Available [facility] With [address], [place], [address], 05/06/2019 15:46:32 05/06/19 20 05/06/2019 urina lysis , dipst ick, auto Unknown Analyte Normal Not Available [facility] With [address], [place], [address], 05/06/2019 15:46:32 05/06/19 20 05/06/2019 urina lysis , dipst ick, auto Unknown Analyte Negati ve Not Available [facility] With [address] [place], [address], 05/06/2019 15:46:32 05/06/19 20 05/06/2019 urina lysis , dipst ick, auto Unknown Analyte Negati ve Not Available [facility] With [address] [place], [address], 05/06/2019 15:46:32 05/06/19 20 05/06/2019 urina lysis , dipst ick, auto Unknown Analyte Normal Not Available [facility] With [address], [place], [address], 05/06/2019 15:46:32 05/06/19 20 05/06/2019 urina lysis , dipst ick, auto Unknown Analyte Normal - 1mg/dl Not Available [facility] With [address], [place], [address], 05/06/2019 15:46:32 05/06/19 20 05/06/2019 urina lysis , dipst ick, auto Unknown Analyte Negati ve Not Available [facility] With [address], [place], [address], 05/06/2019 15:46:32 05/06/19 20 05/06/2019 urina lysis , dipst ick, auto Unknown Analyte Negati ve Not Available [facility] With [address], [place], [address], 05/06/2019 15:46:32 05/06/19 20 05/06/2019 urina lysis , dipst ick, auto Unknown Analyte Negati ve Not Available [facility] With [address], [place], [address], 05/06/2019 15:46:32 05/06/19 20 05/06/2019 urina lysis , dipst ick, auto Unknown Analyte Negati ve Not Available [facility] With [address], [place], [address], 05/06/2019 15:46:32 05/06/19 20 05/06/2019 urina lysis , dipst ick, auto Unknown Analyte Clean Catch Not Available [facility] With [address], [place], [address], 05/06/2019 15:46:32 05/06/19 20 05/06/2019 urina lysis , dipst ick, auto Unknown Analyte Automa lana Not Available [facility] With [address], [place], [address], 05/06/2019 15:46:32 Result Notes None recorded. Procedures Surgical History Date Name Laterality Status Provider Name and Address Organization Details Recorded Time cholecystectomy completed [facility] 05/06/2019 15:42:39 Appendectomy completed [facility] 05/06/2019 15:43:02 Circumcision completed [facility] 05/06/2019 15:43:16 Imaging Results None recorded. Procedure Notes None recorded. Medical Equipment None Reported. Allergies Allergen ID Allergen Name Allergen Category Reaction Reaction Severity Criticality Documentation Date Start Date Code Code System Note Provider Name and Address Organization Details Recorded Time 295667 Product containin g penicilli n (product) medicatio n Not available Not available Not available 05/06/2019 43287 8001 SNOMED [facility] 0 15:48:08 Medications Name Sig Start Date Stop Date Status Note LastModified by Organization Details LastModified Time atorvastatin 40 mg tablet Take 1 tablet every day by oral route. active Not Available Not Available No t Available divalproex 500 mg tablet,delay ed release Take 1 tablet twice a day by oral route. active Not Available Not Available No t Available tamsulosin 0.4 mg capsule Take 1 capsule every day by oral route. active Not Available Not Available No t Available trazodone 100 mg tablet Take 1 tablet twice a day by oral route. active Not Available Not Available No t Available Asprin Ec Low Dose 81 mg tablet,delay ed release Take 1 tablet every day by oral route. active Not Available Not Available No t Available Uroxatral 10 mg tablet,exten ded release Take 1 tablet every day by oral route for 90 days. 2019 active Not Available Not Available Not Avai lable albuterol sulf 90 mcg/actuatio n breath activated powder inhaler,sens or Inhale 2 puffs every 4 hours by inhalation route. active Not Available Not Available No t Available Vitals Date Recorded Body height Body mass index (BMI) Body weight Provider Name and Address Organization Details Last Updated DateTime 05/06/2019 175.26 cm 32.5 kg/m2 39332.32 g [facility] 05/06/2019 15:40:42 Social History Question Answer Notes LastModified by Organizat ion Details LastModified Time Tobacco Smoking Status Former Smoker [facility] 05/06/2019 15:42:15 Marital Status Single Informatio n not available 05/06/2019 Sex: Unknown Functional Status Question Answer Note LastModified by Organization D etails LastModified Time What is your level of alcohol consumption? None Information not available 05/06/2019 Mental Status None recorded. Family History Relationship Description Onset Age of this Age Resolved Age Notes LastModified by Organization Details LastModified Time Father No current problems or disability Not available 05/06 15:42:08 Mother No current problems or disability Not available 05/06 15:42:08 Medical History Condition Response False Teeth Y Stroke Y Thyroid Disorder Y Past Encounters Encounter ID Performer Location Encounter Start Date Encounter Closed Date Diagnosis/Indication Diagnosis SNOMED-CT Code Diagnosis ICD10 Code Diagnosis Note [id number] TRUNG GILLIAM MD [facility] [address] [facility] [address] 05/06/2019 14:12:47 05/06/2019 15:05:36 Benign prostatic hyperplasia with outflow obstruction 258385053 N40.1 [id number] TRUNG GILLIAM MD SURGERY SCHEDULE [address] [place] [address] 05/13/2019 06:18:28 05/13/2019 06:18:48 Health Concerns Section Related Observation LastModified by Organization Detai ls LastModified Time None Recorded Concern Status LastModified by Organization Details LastModified Time None Recorded Advance Directives Directive None Recorded Payers Insurance Date Sequence Insurance Name Policy Number Policy Stone Covered Member ID Stone Member ID Guarantor Name 06/21/2019 1 [facility] (MEDICAID REPLACEMENT - HMO) Eric Laguna [id number] Eric Laguna Notes Date Note Type Note Provider Name and Address Organization Details Recorded Time 05/06/2019 text/html 59-year-old male in the office for consultation and evaluation of urinary retention. He began having troubles with emptying his bladder adequately during [facility] incarceration, initially noticed in 2013. He was managed with intermittent catheterization while in [facility]. Since discharge in August 2018 he has not performed intermittent catheterization and continues to have intermittent lower urinary symptoms. He has variable daytime frequency with decreased force of stream. He has nocturia 2-3 times nightly. No hematuria or dysuria. He takes tamsulosin. TRUNG GILLIAM MD [facility] [place], [address], [facility] 05/08/2019 16:17:30
--- OUTSIDE RECORDS SUMMARY | 2024-09-17 08:59 | XMS_ITS | Data Portability ---
Author Organization [employer] [facility] Address [address] [place] [address] Care Team Providers Care Equipment Maintenance Superintendent Name Role Phone OWEN HUNG Curriculum Assistant Principal CIARA SHAY Primary Care Provider Unavailabl e Assessment No assessment recorded. Plan of Treatment Reminders Order Date Submit Date Provider Last Modified By Organization Details Last Modified Time Details Appointments None recorded. Lab lipid panel, serum - room 3 2022 023 [facility], [address], [place], [address], 3 05:23:26 CBC w/ auto diff 2022 023 [facility], [address], [place], [address], 3 05:23:27 CMP, serum or plasma 2022 023 [facility], [address], [place], [address], 3 05:23:27 TSH, serum or plasma 2022 023 [facility], [address], [place], [address], 3 05:23:28 PSA, serum or plasma 2022 023 [facility], [address], [place], [address], 3 05:23:28 Referral pain management referral 2021 022 esdras Rodriguez MD, [address], [address], [place], [address], 2 11:37:33 Procedures None recorded. Surgeries None recorded. Imaging None recorded. Medication Orders atorvastati n 40 mg tablet 2022 023 [facility], [address], [place], [id number], 3 08:25:53 mirtazapine 30 mg tablet 2022 023 [facility] #, [address], [place], [id number], 3 09:46:23 sildenafil 50 mg tablet 2022 023 [facility] #, [address], [place], [id number], 3 09:46:24 divalproex 500 mg tablet,diego yed release 2022 023 [facility] #, [address], [place], [id number], 3 08:25:56 pantoprazol e 40 mg tablet,diego yed release 2022 023 [facility], [address], [place], [id number], 3 09:46:21 aspirin 81 mg tablet,diego yed release 2022 023 [facility]43482, [address], [place], [id number], 3 08:25:54 clopidogrel 75 mg tablet 2022 023 [facility] #, [address], [place], [id number], 3 08:25:55 isosorbide mononitrate ER 30 mg tablet,exte nded release 24 hr 2022 023 [facility] #, [address], [place], [id number], 3 08:25:55 metoprolol tartrate 25 mg tablet 2022 023 [facility] #, [address], [place], [id number], 3 08:25:56 spironolact one 25 mg tablet 2022 023 [facility] #, [address], [place], [id number], 3 09:46:22 atorvastati n 40 mg tablet 2022 023 [facility] #28066, [address], [place], [id number], 3 11:21:29 sildenafil 50 mg tablet 2022 023 [facility] #56711, [address], [place], [id number], 3 11:21:26 mirtazapine 30 mg tablet 2022 023 [facility] #75116, [address], [place], [id number], 3 11:21:27 ibuprofen 800 mg tablet 2022 023 [facility], [address], [place], [id number], 3 11:21:28 divalproex 500 mg tablet,diego yed release 2022 023 [facility], [address], [place], [id number], 3 11:21:32 pantoprazol e 40 mg tablet,diego yed release 2022 023 [facility], [address], [place], [id number], 3 11:21:28 aspirin 81 mg tablet,diego yed release 2022 023 [facility], [address], [place], [id number], 3 11:21:31 clopidogrel 75 mg tablet 2022 023 [facility], [address], [place], [id number], 3 11:21:28 isosorbide mononitrate ER 30 mg tablet,exte nded release 24 hr 2022 023 [facility] #90514, [address], [place], [id number], 3 11:21:27 metoprolol tartrate 25 mg tablet 2022 023 [facility]67919, [address], [place], [id number], 3 11:21:28 spironolact one 25 mg tablet 2022 023 [email or web address], [address], [place], [id number], 3 11:21:31 atorvastati n 40 mg tablet 2021 022 [facility] #37244, [address], [place], [id number], 2 16:05:11 sildenafil 50 mg tablet 2021 [facility] #65112, [address], [place], [id number], 2 16:04:44 mirtazapine 30 mg tablet 2021 [facility] #44002, [address], [place], [id number], 2 16:04:41 ibuprofen 800 mg tablet 2021 [facility] #49201, [address], [place], [id number], 2 16:05:14 divalproex 500 mg tablet,diego yed release 2021 022 [facility] #66637, [address], [place], [id number], 2 16:06:36 pantoprazol e 40 mg tablet,diego yed release 2021 022 [facility] #15543, [address], [place], [id number], 16:04:42 aspirin 81 mg tablet,diego yed release 2021 [facility]24575, [address], [place], [place], [id number], 16:05:06 clopidogrel 75 mg tablet 2021 [facility]23381, [address], [place], [id number], 16:04:43 metoprolol tartrate 25 mg tablet 2021 [facility]51557, [address], [place], [id number], 16:05:09 isosorbide mononitrate ER 30 mg tablet,exte nded release 24 hr 2021 [facility]15769, [address], [place], [id number], 16:05:01 spironolact one 25 mg tablet 2021 [facility]45466, [address], [place], [place], [id number], 16:04:43 atorvastati n 40 mg tablet 2021 [facility]95970, [address], [place], [place], [id number], 15:11:11 mirtazapine 30 mg tablet 2021 [facility] #07905, [address], [place], [id number], 2 15:11:13 ibuprofen 800 mg tablet 2021 [facility] #96056, [address], [place], [id number], 2 15:11:10 divalproex 500 mg tablet,diego yed release 2021 [facility] #81032, [address], [place], [id number], 2 15:11:09 metoprolol tartrate 25 mg tablet 2021 [facility] #04880, [address], [place], [id number], 2 15:11:10 aspirin 81 mg tablet,diego yed release 2021 022 [email or web address] 3 [facility] #33270, [address], [place], [id number], 2 15:30:27 Patient TargetsNo targets recorded. Patient Instructions Encounter Date Encounter Id Patient Instructions Last Modified By Organization Details Last Modified Time 12/17/2021 [id number] chronic obstructive pulmonary disease (COPD): care instructions Not available 12/17/2021 15:11:01 Reason for Referral Pain Management Referral for Low back pain Referring Physician: Ciara Shay, Family Medicine, Encounter Date: 12/17/2021 Results Created Date Observation Date Name Description Value Unit Range Abnormal Flag Note LastModifiedBy Organization Detail LastModifiedTime 06/08/19 23 06/08/2022 LIPID PANEL , STAND SAMI cholesterol, total 188 mg/dL <200 normal Not Available [facility] [address], [place], [address], 06/08/2022 06:08:32 06/08/19 23 06/08/2022 LIPID PANEL , STAND SAMI HDL cholesterol 43 mg/dL > or = 40 normal Not Available [facility] [address] [facility], [place], [address], 06/08/2022 06:08:32 06/08/19 23 06/08/2022 LIPID PANEL , STAND SAMI triglyceride s 356 mg/dL <150 high If a non-f astin g speci men was colle cted, consi madi repea t trigl yceri de testi ng on a fasti ng speci men if clini judy indic ated. Brayan moore et al. J. of Clin. Lipid ol. 2015; 9:129 -169. Not Available [facility] [address] [facility], [place], [address], 06/08/2022 06:08:32 06/08/19 23 06/08/2022 LIPID PANEL [...] arce tics. com/f aq/FA Q164) Not Available [facility] [address] [facility], [place], [address], 06/08/2022 06:08:32 06/08/19 23 06/08/2022 LIPID PANEL , STAND SAMI chol/HDLC ratio 4.4 (calc ) <5.0 normal Not Available [facility] [address] [facility], [address], 06/08/2022 06:08:32 06/08/19 23 06/08/2022 LIPID PANEL , STAND SAMI non HDL cholesterol 145 mg/dL _(mireya c) <130 high For patie nts with diabe yina plus 1 major ASCVD risk facto r, treat ing to a non-H DL-C goal of <100 mg/dL (LDL- C of <70 mg/dL ) is consi santy a nettie [place] c optio n. Not Available [facility] [address] [place], [address], 06/08/2022 06:08:32 06/08/19 23 06/08/2022 COMPR EHENS DAYA METAB OLIC PANEL glucose 162 mg/dL 65-139 high Non-f astin g refer ence inter yaneli Not Available [facility] [address] [place], [address], 06/08/2022 06:08:32 06/08/19 23 06/08/2022 COMPR EHENS DAYA METAB OLIC PANEL urea nitrogen (BUN) 18 mg/dL 7-25 normal Not Available [facility] [address] [place], [address], 06/08/2022 06:08:32 06/08/19 23 06/08/2022 COMPR EHENS DAYA METAB OLIC PANEL creatinine 1.06 mg/dL 0.70-1 .35 normal Not Available [facility] [address] [place], [address], 06/08/2022 06:08:32 06/08/19 23 06/08/2022 COMPR EHENS [...] culat or Not Available [facility] [address] [facility], [address], 06/08/2022 06:08:32 06/08/19 23 06/08/2022 COMPR EHENS DAYA METAB OLIC PANEL BUN/creatini ne ratio NOT APPLIC ABLE (calc ) 6-22 Not Available [facility] [address] [facility], [address], 06/08/2022 06:08:32 06/08/19 23 06/08/2022 COMPR EHENS DAYA METAB OLIC PANEL sodium 140 mmol/ L 135-14 6 normal Not Available [facility] [address] [facility], [address], 06/08/2022 06:08:32 06/08/19 23 06/08/2022 COMPR EHENS DAYA METAB OLIC PANEL potassium 4.5 mmol/ L 3.5-5. 3 normal Not Available [facility] [address] [facility], [address], 06/08/2022 06:08:32 06/08/19 23 06/08/2022 COMPR EHENS DAYA METAB OLIC PANEL chloride 106 mmol/ L 98-110 normal Not Available [facility] [address] [facility], [address], 06/08/2022 06:08:32 06/08/19 23 06/08/2022 COMPR EHENS DAYA METAB OLIC PANEL carbon dioxide 22 mmol/ L 20-32 normal Not Available [facility] [address] [facility], [address], 06/08/2022 06:08:32 06/08/19 23 06/08/2022 COMPR EHENS DAYA METAB OLIC PANEL calcium 9.8 mg/dL 8.6-10 .3 normal Not Available [facility] [address] [facility] [place], [address], 06/08/2022 06:08:32 06/08/19 23 06/08/2022 COMPR EHENS DAYA METAB OLIC PANEL protein, total 6.8 g/dL 6.1-8. 1 normal Not Available [facility] [address] [facility] [place], [address], 06/08/2022 06:08:32 06/08/19 23 06/08/2022 COMPR EHENS DAYA METAB OLIC PANEL albumin 4.5 g/dL 3.6-5. 1 normal Not Available [facility] [address] [facility] [place], [address], 06/08/2022 06:08:32 06/08/19 23 06/08/2022 COMPR EHENS DAYA METAB OLIC PANEL globulin 2.3 g/dL_ (calc ) 1.9-3. 7 normal Not Available [facility] [address] [facility], [address], 06/08/2022 06:08:32 06/08/1906/08/2022 COMPR EHENS DAYA METAB OLIC PANEL albumin/glob ulin ratio 2.0 (calc ) 1.0-2. 5 normal Not Available [facility] [address] [facility], [address], 06/08/2022 06:08:32 06/08/19 23 06/08/2022 COMPR EHENS DAYA METAB OLIC PANEL bilirubin, total 0.4 mg/dL 0.2-1. 2 normal Not Available [facility] [address] [facility], [address], 06/08/2022 06:08:32 06/08/19 23 06/08/2022 COMPR EHENS DAYA METAB OLIC PANEL alkaline phosphatase 71 U/L 35-144 normal Not Available [facility] [address] [place], [address], 06/08/2022 06:08:32 06/08/19 23 06/08/2022 COMPR EHENS DAYA METAB OLIC PANEL AST 12 U/L 10-35 normal Not Available [email or web address] [address], [place], [address], 06/08/2022 06:08:32 06/08/19 23 06/08/2022 COMPR EHENS DAYA METAB OLIC PANEL ALT 15 U/L 9-46 normal Not Available [email or web address] [address], [place], [address], 06/08/2022 06:08:32 06/08/19 23 06/08/2022 CBC (INCL UDES DIFF/ PLT) white blood cell count 8.2 thous and/u L 3.8-10 .8 normal Not Available [facility] [address] [place], [address], 06/08/2022 05:23:27 06/08/19 23 06/08/2022 CBC (INCL UDES DIFF/ PLT) red blood cell count 4.64 melissa on/uL 4.20-5 .80 normal Not Available [facility] [address], [place], [address], 06/08/2022 05:23:27 06/08/19 23 06/08/2022 CBC (INCL UDES DIFF/ PLT) hemoglobin 15.1 g/dL 13.2-1 7.1 normal Not Available [facility] [address], [place], [address], 06/08/2022 05:23:27 06/08/19 23 06/08/2022 CBC (INCL UDES DIFF/ PLT) hematocrit 43.3 % 38.5-5 0.0 normal Not Available [facility] [address], [place], [address], 06/08/2022 05:23:27 06/08/19 23 06/08/2022 CBC (INCL UDES DIFF/ PLT) MCV 93.3 fL 80.0-1 00.0 normal Not Available [facility] [address], [place], [address], 06/08/2022 05:23:27 06/08/19 23 06/08/2022 CBC (INCL UDES DIFF/ PLT) MCH 32.5 pg 27.0-3 3.0 normal Not Available [facility] [address], [place], [address], 06/08/2022 05:23:27 06/08/19 23 06/08/2022 CBC (INCL UDES DIFF/ PLT) MCHC 34.9 g/dL 32.0-3 6.0 normal Not Available [facility] [address], [place], [address], 06/08/2022 05:23:27 06/08/19 23 06/08/2022 CBC (INCL UDES DIFF/ PLT) RDW 12.6 % 11.0-1 5.0 normal Not Available [facility] [address], [place], [address], 06/08/2022 05:23:27 06/08/19 23 06/08/2022 CBC (INCL UDES DIFF/ PLT) platelet count 278 thous and/u L 140-40 0 normal Not Available [facility] [address], [place], [address], 06/08/2022 05:23:27 06/08/19 23 06/08/2022 CBC (INCL UDES DIFF/ PLT) MPV 10.2 fL 7.5-12 .5 normal Not Available [facility] [address] [facility], [address], 06/08/2022 05:23:27 06/08/19 23 06/08/2022 CBC (INCL UDES DIFF/ PLT) absolute neutrophils 3559 cells /uL 1500-7 800 normal Not Available [facility] [address] [facility], [place], [address], 06/08/2022 05:23:27 06/08/19 23 06/08/2022 CBC (INCL UDES DIFF/ PLT) absolute lymphocytes 3756 cells /uL 850-39 00 normal Not Available [facility] [address] [facility], [place], [address], 06/08/2022 05:23:27 06/08/19 23 06/08/2022 CBC (INCL UDES DIFF/ PLT) absolute monocytes 656 cells /uL 200-95 0 normal Not Available [facility] [address] [facility], [address], 06/08/2022 05:23:27 06/08/19 23 06/08/2022 CBC (INCL UDES DIFF/ PLT) absolute eosinophils 148 cells /uL 15-500 normal Not Available [facility] [address] [facility], [address], 06/08/2022 05:23:27 06/08/19 23 06/08/2022 CBC (INCL UDES DIFF/ PLT) absolute basophils 82 cells /uL 0-200 normal Not Available [facility] [address] [facility], [address], 06/08/2022 05:23:27 06/08/19 23 06/08/2022 CBC (INCL UDES DIFF/ PLT) neutrophils 43.4 % normal Not Available [facility] [address] [facility], [address], 06/08/2022 05:23:27 06/08/19 23 06/08/2022 CBC (INCL UDES DIFF/ PLT) lymphocytes 45.8 % normal Not Available [facility] [address] [place], [address], 06/08/2022 05:23:27 06/08/19 23 06/08/2022 CBC (INCL UDES DIFF/ PLT) monocytes 8.0 % normal Not Available [facility] [address] [place], [address], 06/08/2022 05:23:27 06/08/19 23 06/08/2022 CBC (INCL UDES DIFF/ PLT) eosinophils 1.8 % normal Not Available [facility] [address] [place], [address], 06/08/2022 05:23:27 06/08/19 23 06/08/2022 CBC (INCL UDES DIFF/ PLT) basophils 1.0 % normal Not Available [facility] [address] [place], [address], 06/08/2022 05:23:27 06/08/19 23 06/08/2022 TSH TSH 3.21 mIU/L 0.40-4 .50 normal Not Available [facility] [address] [place], [address], 06/08/2022 07:29:13 06/08/1906/08/2022 PSA, TOTAL PSA, total [...] disea se. Not Available [facility] [address] [facility], [place], [address], 06/08/2022 07:29:13 06/08/19 23 06/12/2022 HEMOG LOBIN [...] yina(A DA). Not Available [facility] [address] [facility], [place], [address], 06/12/2022 02:21:10 01/03/20 22 01/02/2022 MRI proce dure (PROC ) No observ ation record ed. [email or web address] [facility] [address], [place], [address], 01/21/2022 17:15:17 04/08/19 23 04/08/2022 XR, hip + pelvi s, unila teral , 2 or 3 view No observ ation record ed. [facility] [address], [place], [address], 04/08/2022 13:23:17 Result Notes None recorded. Problems Name Problem SNOMED Code Status Onset Date Resolution Date Notes Provider Name and Address Organization Details Recorded Time Enteric campylob eliuderios is [id number] Completed 202012/17/2021 Problem Code: A04.5; Problem Code Type: ICD-10; [employer]. 2 08:01:49 Tinea corporis 06161352 Completed 201912/17/2021 Problem Code: B35.4; Problem Code Type: ICD-10; [employer]. 2 08:02:15 Superfic ial mycosis 835880137 Completed 201912/17/2021 Problem Code: B36.9; Problem Code Type: ICD-10; [employer] 2 08:01:49 Neoplasm of bone 909760441 Completed 201912/17/2021 [employer] 2 08:01:48 Primary insomnia 4865908 Active 2019 Problem Code: F51.01; Problem Code Type: ICD-10; Not Available [employer] 2 22:42:38 Male erectile disorder Active 2019 [employer] 2 08:02:08 Mixed hyperlip idemia 649628708 Active 2019 Problem Code: E78.2; Problem Code Type: ICD-10; Not Available [employer] 2 22:42:38 Tension- type headache 429643947 Completed 202112/17/2021 Problem Code: G44.209; Problem Code Type: ICD-10; TIGRE PENANER mindy, [employer] 2 08:01:49 Impacted cerumen of bilatera l ears [id number] 05060 Completed 201912/17/2021 Problem Code: H61.23; Problem Code Type: ICD-10; TIGRE guillen, [employer] 2 08:01:48 Otogenic otalgia 71552253 Completed 201903/14/2020 Not Available [facility] 2 22:42:38 Bilatera l hearing loss 28406911 Completed 201912/17/2021 TIGREPER PENANER mindy, [employer] 2 08:01:49 Otogenic otalgia 03541124 Completed 202106/11/2021 Not Available [facility] 2 22:42:38 Mitral valve regurgit ation 23804943 Active 2019 Problem Code: I34.0; Problem Code Type: ICD-10; Not Available [facility] 2 22:42:38 Acute sinusiti s 81187326 Completed 202112/17/2021 Problem Code: J01.90; Problem Code Type: ICD-10; TIGRE PENANER mindy, [employer] 2 08:01:48 Allergic contact dermatit is 404134533 Completed 201912/17/2021 Problem Code: L23.9; Problem Code Type: ICD-10; [employer]NER [employer] 2 08:01:49 Pain of left wrist [id number] 9102 Completed 202006/12/2020 Problem Code: M25.532; Problem Code Type: ICD-10; Not Available [facility] 2 22:42:39 Neck pain 82479356 Completed 201912/17/2021 TIGRE guillen, [employer] 2 08:01:49 Low back pain 523184402 Active 2019 Problem Code: M54.5; Problem Code Type: ICD-10; Not Available [facility] 2 22:42:39 Myositis 03858008 Completed 202112/17/2021 Problem Code: M60.9; Problem Code Type: ICD-10; ITGRE guillen, [employer]. 2 08:01:49 Finding related to ability to pass urine 305482527 Active 2020 Not Available [facility] 2 22:42:39 Tachycar mau 4628622 Completed 202005/24/2021 Not Available [facility] 2 22:42:39 Dyspnea 059347467 Completed 201912/17/2021 Problem Code: R06.02; Problem Code Type: ICD-10; TIGRE guillen, [employer] 2 08:01:49 Dyspnea 651353072 Completed 202005/24/2021 Problem Code: R06.02; Problem Code Type: ICD-10; TIGRE guillen, [employer] 2 08:01:49 Chest pain 57012881 Completed 202005/24/2021 Problem Code: R07.9; Problem Code Type: ICD-10; Not Available [facility] 2 22:42:40 Stool color abnormal 819101894 Completed 201903/14/2020 Problem Code: R19.5; Problem Code Type: ICD-10; Not Available [facility] 2 22:42:40 Diarrhea 62931778 Completed 202012/17/2021 Problem Code: R19.7; Problem Code Type: ICD-10; TIGRE guillen, [employer] 2 08:01:49 Retentio n of urine 067387433 Completed 202112/17/2021 TIGRE guillen, [employer] 2 08:01:49 Nocturia 093076674 Active 2019 Problem Code: R35.1; Problem Code Type: ICD-10; Not Available [facility] 2 22:42:41 Retentio n of urine 388267668 Completed 201903/14/2020 [employer] 2 08:01:49 Chronic fatigue syndrome 69085506 Completed 201912/17/2021 Problem Code: R53.82; Problem Code Type: ICD-10; [employer]IGRE [employer] 2 08:01:49 Chronic fatigue syndrome 20163484 Completed 202011/03/2020 Problem Code: R53.82; Problem Code Type: ICD-10; [employer] 2 08:01:49 Localize d edema 908339762 Active 2019 Problem Code: R60.0; Problem Code Type: ICD-10; Not Available [facility] 2 22:42:42 Liver function tests outside referenc e range 088303824 Completed 201911/03/2020 Problem Code: R94.5; Problem Code Type: ICD-10; Not Available [facility] 2 22:42:43 COVID-19 351436449 Completed 202112/17/2021 Problem Code: U07.1; Problem Code Type: ICD-10; TIGRE guillen, [employer] 2 08:01:49 General examinat ion of patient Completed 201903/14/2020 Not Available [facility] 2 22:42:43 Pre-surg giles testing Completed 202012/17/2021 Problem Code: Z01.810; Problem Code Type: ICD-10; [employer] 2 08:01:48 Pre-surg giles evaluati on Completed 201912/17/2021 TIGRE PENANER [employer] 2 08:01:48 Screenin g for malignan t neoplasm of colon Completed 201912/17/2021 TIGRE PENANER mindy, [employer] 2 08:01:49 Cardiome avril [id number] Active 2019 Problem Code: I51.7; Problem Code Type: ICD-10; Not Available [facility] 2 22:42:44 Choleste rol screenin g Completed 201912/17/2021 TIGRE PENANER mindy, [employer] 2 08:01:49 Influenz a vaccine needed [id number] Completed 201903/14/2020 Problem Code: Z23; Problem Code Type: ICD-10; Not Available [facility] 2 22:42:45 Body mass index 30+ - obesity 498704039 Completed 201912/17/2021 Problem Code: Z68.30; Problem Code Type: ICD-10; TIGRE PENANER mindy, [employer] 2 08:01:48 Body mass index 30+ - obesity 151196012 Completed 202006/12/2020 Problem Code: Z68.30; Problem Code Type: ICD-10; TIGRE PENANER mindy, [employer]. 2 08:01:48 Body mass index 30+ - obesity 240945204 Completed 202006/12/2020 Problem Code: Z68.32; Problem Code Type: ICD-10; TIGRE PENANER [employer] 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 Procedures Surgical History Date Name Laterality Status Provider Name and Address Organization Details Recorded Time 04/13/19 cholecystectomy completed Not Available [facility] 08/2021 22:56:08 Back Surgery completed [employer] 12/17/2021 14:02:03 Appendectomy completed [employer]. 12/17/2021 14:02:25 Imaging Results None recorded. Procedure Notes None recorded. Medical Equipment None Reported. Allergies Allergen ID Allergen Name Allergen Category Reaction Reaction Severity Criticality Documentation Date Start Date Code Code System Note Provider Name and Address Organization Details Recorded Time 88576 Product containin g penicilli n (product) medicatio n Not available Not available Not available 12/04/2021 96079 8001 SNOMED TIGREPER LANGSTON [employer] 2 08:00:50 72176 shellfish derived food,medi cation Not available Not available Not available 12/17/2021 07376 UNK TIGREPER LANGSTON [employer] 2 13:56:09 Medications Name Sig Start Date [...] Updated DateTime 3 175.26 cm 32.8 kg/m2 028824. 51 g 98.1 [degF] 81 /min 96 % 96 % 110 mm[Hg] 70 mm[Hg] [employer] 3 10:49:11 Date Recorded Body height Body mass index (BMI) Body weight Heart rate Oxygen saturation Oxygen saturation in Arterial blood by Pulse oximetry Systolic blood pressure Diastolic blood pressure Provider Name and Address Organization Details Last Updated DateTime 3 175.26 cm 31.8 kg/m2 56786.4 6 g 64 /min 95 % 95 % 108 mm[Hg] 70 mm[Hg] Kristin Pearson [employer] 3 07:57:48 Date Recorded Body height Body mass index (BMI) Body weight Body temperature Heart rate Oxygen saturation Oxygen saturation in Arterial blood by Pulse oximetry Systolic blood pressure Diastolic blood pressure Provider Name and Address Organization Details Last Updated DateTime 2 175.26 cm 31 kg/m2 32256.4 g 98 [degF] 70 /min 96 % 96 % 110 mm[Hg] 60 mm[Hg] [employer] 2 14:04:06 Date Recorded Body height Body mass index (BMI) Body weight Body temperature Heart rate Oxygen saturation Oxygen saturation in Arterial blood by Pulse oximetry Systolic blood pressure Diastolic blood pressure Provider Name and Address Organization Details Last Updated DateTime 2 175.26 cm 32.5 kg/m2 60077.3 2 g 99 [degF] 77 /min 95 % 95 % 120 mm[Hg] 78 mm[Hg] [employer] 2 07:40:52 Social History Question Answer Notes LastModified by Organizat ion Details LastModified Time Tobacco Smoking Status Former Smoker TIGRE PENANER [employer]. 12/17/2021 08:03:37 Do You Have An Advance Directive? Yes [email or web address] Information not available 12/17/2021 Are You Blind Or Do You Have Difficulty Seeing? No [email or web address] Information not available 12/17/2021 What Is Your Level Of Caffeine Consumption? Occasional Information not available 10/08/2022 In The 14 Days Before Symptom Onset, Have You Had Close Contact With A Laboratory-confir med COVID-19 While That Case Was Ill? No [email or web address] Information not available 12/17/2021 In The 14 Days Before Symptom Onset, Have You Had Close Contact With A Person Who Is Under Investigation For COVID-19 While That Person Was Ill? No Information not available 12/17/2021 Have You Been To An Area Known To Be High Risk For COVID-19? No [email or web address] Information not available 12/17/2021 Are You Deaf Or Do You Have Serious Difficulty Hearing? No [email or web address] Information not available 12/17/2021 What Type Of Diet Are You Following? REGULAR [email or web address] Information not available 12/17/2021 Do You Have A Medical Power Of Classroom Instructional Aide? Yes [email or web address] Information not available 12/17/2021 What Was The Date Of Your Most Recent Tobacco Screening? 10/08/2022 Information not available 10/08/2022 What Is Your Current Pack Years? [email or web address] ars [email or web address] Information not available 12/17/2021 What Is Your Relationship Status? [email or web address] Information not available 12/17/2021 Has Tobacco Cessation Counseling Been Provided? Yes Information not available 10/08/2022 On What Date Was Tobacco Cessation Counseling Provided? 10/08/2022 Information not available 10/08/2022 Have You Recently Traveled Abroad? No Information not available 12/17/2021 Do You Have Difficulty Walking Or Climbing Stairs? No [email or web address] Information not available 12/17/2021 Are You Currently In School? No [email or web address] Information not available 12/17/2021 Do You Have Any Dietary Restrictions? No [email or web address] Information not available 12/17/2021 Sex: Male Functional Status Question Answer Note LastModified by Organizat ion Details LastModified Time Do you use any illicit or recreational drugs? No Information not available 10/08/2022 What is your level of alcohol consumption? Occasional Information not available 10/08/2022 Do you have transportation difficulties? No Information not available 12/17/2021 Are you able to walk? [email or web address] Information not available 12/17/2021 Do you have difficulty doing errands alone? No [email or web address] Information not available 12/17/2021 Are you able to care for yourself? Yes [email or web address] Information n ot available 12/17/2021 Do you have difficulty dressing or bathing? No [email or web address] Information not available 12/17/2021 What is your exercise level? Occasional Information not available 12/17/2021 Mental Status Question Answer Note LastModified by Organization D etails LastModified Time Do you have difficulty concentrating, remembering or making decisions? No [email or web address] Information no t available 12/17/2021 Family History Relationship Description Onset Age of this Age Resolved Age Notes LastModified by Organization Details LastModified Time Mother Family history of hyperlipidem ia [email or web address] Not available 12/17 14:00:24 Mother Family history of Hypertension Not available 14:00:27 Mother Diabetes mellitus [email or web address] Not available 12/17 14:00:37 Medical History Condition Response Allergies (Food, seasonal, environmental ) Y Acid Reflux (GERD) Y Asthma Y High Cholesterol Y Immunizations Vaccine Type Date Status Note Provider Nam e and Address Organization Details Recorded Time Influenza, split virus, quadrivalent, preservative 0 completed TIGRE guillen [employer] 03/11/2022 15:14:29 Tdap 6 completed TIGRE guillen [employer] 03/11/2022 15:14:29 COVID-19, mRNA, LNP-S, PF, 100 mcg/0.5mL dose or 50 mcg/0.25mL dose 1 completed TIGRE guillen [employer] 03/11/2022 15:14:29 Influenza, MDCK, quadrivalent, PF 2 completed TIGRE guillen [employer] 03/11/2022 15:14:29 COVID-19, mRNA, LNP-S, PF, 100 mcg/0.5mL dose or 50 mcg/0.25mL dose 1 completed TIGRE guillen [employer] 03/11/2022 15:14:29 COVID-19, mRNA, LNP-S, PF, 100 mcg/0.5mL dose or 50 mcg/0.25mL dose 1 completed TIGRE guillen [employer] 03/11/2022 15:14:29 Past Encounters Encounter ID Performer Location Encounter Start Date Encounter Closed Date Diagnosis/Indication Diagnosis SNOMED-CT Code Diagnosis ICD10 Code Diagnosis Note [id number] [place] [id number] 12/17/2021 13:37:47 12/17/2021 14:34:11 Mixed hyperlipidemia 191819775 E78.2 Primary insomnia 7112097 F51.01 Low back pain 783735636 M54.50 Essential hypertension 89129244 I10 Gastroesop hageal reflux disease without esophagitis 738369201 K21.9 Erectile dysfunction 860 654895 F52.21 Chronic ob structive pulmonary disease 09273537 J44.9 Seizure disorder 2598983 02 G40.909 [id number] Ciara Shay [place] [id number] 03/11/2022 14:43:36 03/11/2022 15:42:25 Localized edema 089404716 R60.0 Low back pain 607875243 M54.50 Mixed hyperlipidemia 267 163389 E78.2 Essential hypertension 67994692 I10 Seizure disorder 2313014 02 G40.909 Primary insomnia 6208084 F51.01 Chronic ob structive pulmonary disease 53428083 J44.9 Erectile dysfunction 860 096311 F52.21 Gastroesop hageal reflux disease without esophagitis 857361002 K21.9 [id number] [place] [id number] 06/07/2022 10:36:37 06/07/2022 11:23:08 Finding related to ability to pass urine 421106925 N40.1 Mixed hyperlipidemia 267 465840 E78.2 Chronic fa tigue syndrome 72471428 R53.82 Essential hypertension 33072395 I10 Seizure disorder 4384024 02 G40.909 Low back pain 047060428 M54.50 Primary insomnia 7218324 F51.01 Gastroesop hageal reflux disease without esophagitis 314151158 K21.9 Erectile dysfunction 860 950194 F52.21 Localized edema 97601013 4 R60.0 Body mass index 30+ - obesity 412514563 Z68.32 [id number] [place] [id number] 10/08/2022 07:46:24 10/08/2022 08:38:44 Essential hypertension 62667786 I10 Mixed hyperlipidemia 267 299323 E78.2 Seizure disorder 0432094 02 G40.909 Primary insomnia 3514203 F51.01 Gastroesop hageal reflux disease without esophagitis 304554007 K21.9 Erectile dysfunction 860 881781 F52.21 Localized edema 28276089 4 R60.0 Body mass index 30+ - obesity 574484059 Z68.32 Health Concerns Section Related Observation LastModified by Organization Detai ls LastModified Time None Recorded Concern Status LastModified by Organization Details LastModified Time None Recorded Advance Directives Directive Y: Payers Insurance Date Sequence Insurance Name Policy Number Policy Stone Covered Member ID Stone Member ID Guarantor Name 11/07/2022 1 UNSPECIFIED REMIT PAYOR Eric Laguna 10/05/[address] [facility] (MEDICAID REPLACEMENT - O) Eric Laguna [id number] Eric Laguna Notes Date Note Type Note [...] you have a Dentist? No [email or web address] on 12/17/2021 Ciara KATHE Shay [address] [facility], [place], [address], [employer]. 12/17/2021 15:13:35 03/11/2022 text/html pt here today [...] some pain pills. Ciara Shay APRN [address] [place], [address], [employer]. 03/12/2022 13:13:17 06/07/2022 text/html pt here today [...] routine labwork today. Ciara Shay APRN [address] [place], [address], [employer]. 06/07/2022 11:36:45 10/08/2022 text/html pt here today [...] writes him lortabs. Ciara Shay APRN [address] [facility], [place], [address], [facility] [employer] 10/08/2022 09:47:47
--- OUTSIDE RECORDS SUMMARY | 2024-09-17 08:59 | XMS_ITS | Clinical Summary ---
Author Organization [facility] Address [address] [place] [address] Care Team Providers Care Entry Level Electrical Engineer Name Role Phone Ciara Shay APRN Primary Care Provider [phone] Allergies Active Allergy Reactions Criticality Noted Date [...] Influenza, injectable, quadrivalent 12/27/2019 Moderna COVID-19 Vaccine ([employer]) 12+ years ,05/25/2020 Tdap 01/21/2006 Family [...] Tdap) 01/22/2016 01/21/2006 [facility]-Depression Screening 12/28/2022 12/28/2021 [id number] Vaccine ( season) 2023 11/30/2020, 06/22/2020, 05/25/2020 [...] patient's age to complete this topic Insurance [facility] Care Teams Entry Level Electrical Engineer Relationship Specialty Start Date End Date Ciara Shay APRN PCP - General 08/11/20
--- NOTE | 2024-09-17 09:30 | CA_ITS ---
APPROVED REPORT EXAM: Comprehensive 2D, Doppler, and color-flow Echocardiogram Cook Dessert: Francine Velez, RCS, RVS Ht: 5 ft 9 in Wt: 213lbs BSA: 2.12 BP: 106/69 mmHg Indications: SOB, Edema, Abn EKG 2D Dimensions IVSd 1.13 cm M: 0.6-1.2 LVEF (Visual) 39.10 % PWd 1.08 cm M: 0.6 - 1.2 LVDd 5.42 cm M: 4.2 - 5.9 LVDs 4.38 cm M: 2.5 - 4.0 Left Atrium 3.17 cm M: 3.0 - 4.0 M-Mode Dimensions LA Diam 3.09 cm (1.9-4.0) LVDd 5.61 cm (3.5-5.7) LVDs 4.22 cm (3.5-5.7) EF (Teich) 48.50% EPSs 1.26 cm FS 24.80% EDV (Teich) 154.30 mL ESV (Teich) 79.50 mL LV Diastology E Decel Time 353 (160-240 msec) E/A Ratio 0.57 MED A' 10.20 cm/s LAT A' 10.00 cm/s Aortic Valve AoV Peak Abhinav. 107.0 (50-130 cm/s) AI PHT 534.00 ms AO Peak GR. 4.60 mmHg AO Mean GR. 2.30 (<5 mmHg) AO VTI 20.3 (18-25 cm) Mitral Valve MV A Velocity 71.0 (40-130 cm/s) E/A Ratio 0.57 Pulmonary Valve [place] End VMAX 161.0 cm/s Tricuspid Valve TR P. Velocity 169.00 cm/s Left Ventricle The left ventricle is normal size. The left ventricular systolic function is normal. The left ventricular ejection fraction is within the normal range. There is increased overall thickness. There is normal LV segmental wall motion. Transmitral Doppler flow pattern suggests impaired LV relaxation. LVEF is 55%. Right Ventricle Right ventricle is mildly dilated. The right ventricular systolic function is normal. Atria Left atrium is mildly dilated. Right atrium is mildly dilated. There is no Doppler evidence of interatrial shunt. Aortic Valve Aortic valve is mildly thickened. There is no aortic valvular stenosis. Mild aortic regurgitation. Mitral Valve The mitral valve is normal in structure. No evidence of mitral valve stenosis. Trace mitral regurgitation. Tricuspid Valve Tricuspid valve is grossly normal in structure and function. Trace tricuspid regurgitation. There is insufficient TR jet to estimate RVSP. Pulmonic Valve The pulmonary valve is normal in structure. Mild pulmonic regurgitation. Great Vessels The aortic root is normal in size. IVC is normal in size and collapses >50% with inspiration. Pericardium There is no pericardial effusion. Other Information Study Quality: Fair Conclusion Normal biventricular LV systolic function. Mild RV dilation with normal RV function. Mild biatrial dilation. Mild AI, mild PI. Electronically signed by : Lisha Guthrie MD 09/20/2024 23:10:19
== END 2024-09-17 23:59 | disposition home or self-care (01) ==
LOC: RT 08:56
PROVIDERS: PCP Nurse Practitioner Family; Visit Provider Physician Assistant
DX: I08.8 Other rheumatic multiple valve diseases (principal); I25.118 Atherosclerotic heart disease of native coronary artery with other forms of angina pectoris; R94.31 Abnormal electrocardiogram [ECG] [EKG]; R60.0 Localized edema
CPT/HCPCS: 93306

== ENCOUNTER 2024-10-26 15:37 | Outpatient (CLI) | payer MEDICAID, SELFPAY ==
--- OUTSIDE RECORDS SUMMARY | 2024-10-26 15:39 | XMS_ITS | Data Portability ---
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 Plan of Treatment Reminders Order Date Submit Date Provider Last Modified By Organization Details Last Modified Time Details Appointments None recorded. Lab lipid panel, serum - room 3 2022 023 [facility], [address], [place], [address], 3 05:23:26 CBC w/ auto diff 2022 023 [facility], [address], [place], [address], 3 05:23:27 CMP, serum or plasma 2022 023 [facility], [address], [place], [address], 3 05:23:27 TSH, serum or plasma 2022 023 [facility], [address], [place], [address], 3 05:23:28 PSA, serum or plasma 2022 023 [facility], [address], [place], [address], 3 05:23:28 Referral pain management referral 2021 022 esdras Rodriguez MD, [address], [address], [place], [address], 2 11:37:33 Procedures None recorded. Surgeries None recorded. Imaging None recorded. Medication Orders atorvastati n 40 mg tablet 2022 023 [facility] #, [address] [facility] [address], [place], [place], [id number], 3 08:25:53 mirtazapine 30 mg tablet 2022 023 [facility] #, [address] [facility] [address] , [place], [place], [id number], 3 09:46:23 sildenafil 50 mg tablet 2022 023 [facility] #, [address] [facility] [address], [place], [place], [id number], 3 09:46:24 divalproex 500 mg tablet,diego yed release 2022 023 [facility] #, [address] [facility] [address], [place], [place], [id number], 3 08:25:56 pantoprazol e 40 mg tablet,diego yed release 2022 023 [facility] #75386, [address] [address], [place], [place], [id number], 3 09:46:21 aspirin 81 mg tablet,diego yed release 2022 023 [facility] #, [address] [facility] [address], [place], [id number], 3 08:25:54 clopidogrel 75 mg tablet 2022 023 [facility] [address] [facility] [address], [place], [id number], 3 08:25:55 isosorbide mononitrate ER 30 mg tablet,exte nded release 24 hr 2022 023 [facility], [address] [facility] [address], [place], [id number], 3 08:25:55 metoprolol tartrate 25 mg tablet 2022 023 [facility], [address] [facility] [address], [place], [id number], 3 08:25:56 spironolact one 25 mg tablet 2022 023 [facility], [address] [facility] [address], [place], [id number], 3 09:46:22 atorvastati n 40 mg tablet 2022 023 [facility], [address] [facility] [address], [place], [id number], 3 11:21:29 sildenafil 50 mg tablet 2022 023 [facility], [address] [facility] [address], [place], [id number], 3 11:21:26 mirtazapine 30 mg tablet 2022 023 [facility], [address] [facility] [address], [place], [id number], 3 11:21:27 ibuprofen 800 mg tablet 2022 023 [facility], [address] [facility] [address], [place], [id number], 3 11:21:28 divalproex 500 mg tablet,diego yed release 2022 023 [facility], [address] [facility] [address], [place], [id number], 3 11:21:32 pantoprazol e 40 mg tablet,diego yed release 2022 023 [facility], [address] [facility] [address], [place], [id number], 3 11:21:28 aspirin 81 mg tablet,diego yed release 2022 023 [facility], [address] [facility] [address], [place], [id number], 3 11:21:31 clopidogrel 75 mg tablet 2022 023 [facility], [address] [facility] [address], [place], [id number], 3 11:21:28 isosorbide mononitrate ER 30 mg tablet,exte nded release 24 hr 2022 023 [facility] [place] #, [address] [facility] [address], [place], [id number], 3 11:21:27 metoprolol tartrate 25 mg tablet 2022 023 [facility] #78134, [address] [facility] [address], [place], [id number], 3 11:21:28 spironolact one 25 mg tablet 2022 023 [facility]29982, [address] [facility] [address], [place], [id number], 3 11:21:31 atorvastati n 40 mg tablet 2021 022 [facility]05128, [address] [facility] [address], [place], [id number], 2 16:05:11 sildenafil 50 mg tablet 2021 [facility]46589, [address] [facility] [address], [place], [id number], 2 16:04:44 mirtazapine 30 mg tablet 2021 022 [facility]20380, [address] [facility] [address], [place], [id number], 2 16:04:41 ibuprofen 800 mg tablet 2021 [facility]86557, [address] [facility] [address], [place], [id number], 2 16:05:14 divalproex 500 mg tablet,diego yed release 2021 022 [facility]62418, [address] [facility] [address], [place], [place], [id number], 2 16:06:36 pantoprazol e 40 mg tablet,diego yed release 2021 022 [facility] #51499, [address], [place], [id number], 16:04:42 aspirin 81 mg tablet,diego yed release 2021 [facility] #76507, [address] [facility] [address], [place], [place], [id number], 16:05:06 clopidogrel 75 mg tablet 2021 [facility] #68652, [address] [facility] [address], [place], [place], [id number], 16:04:43 metoprolol tartrate 25 mg tablet 2021 [facility] #43923, [address] [facility] [address], [place], [place], [id number], 16:05:09 isosorbide mononitrate ER 30 mg tablet,exte nded release 24 hr 2021 [facility]10, [address] [facility] [address], [place], [place], [id number], 16:05:01 spironolact one 25 mg tablet 2021 [facility] #83196, [address] [facility] [address], [place], [place], [id number], 16:04:43 atorvastati n 40 mg tablet 2021 [facility] #92401, [address] [facility] [address], [place], [place], [id number], 15:11:11 mirtazapine 30 mg tablet 2021 022 [facility] #95239, [address] [facility] [address], [place], [id number], 2 15:11:13 ibuprofen 800 mg tablet 2021 022 [facility] #78939, [address] [facility] [address], [place], [id number], 2 15:11:10 divalproex 500 mg tablet,diego yed release 2021 022 [facility] [place] [facility] #11920, [address] [facility] [address], [place], [id number], 2 15:11:09 metoprolol tartrate 25 mg tablet 2021 022 [facility] #82835, [address] [facility] [address], [place], [id number], 2 15:11:10 aspirin 81 mg tablet,diego yed release 2021 022 [email or web address] 3 [facility] #22157, [address] [facility] [address], [place], [id number], 2 15:30:27 Patient TargetsNo targets recorded. Patient Instructions Encounter Date Encounter Id Patient Instructions Last Modified By Organization Details Last Modified Time 12/17/2021 [id number] chronic obstructive pulmonary disease (COPD): care instructions Not available 12/17/2021 15:11:01 Reason for Referral Pain Management Referral for Low back pain Referring Physician: Ciara Shay, Family Medicine, Encounter Date: 12/17/2021 Results Created Date Observation Date Name Description Value Unit Range Abnormal Flag Note LastModifiedBy Organization Detail LastModifiedTime 06/08/19 23 06/08/2022 LIPID PANEL , STAND SAMI cholesterol, total 188 mg/dL <200 normal Not Available [facility] [address] [facility], [place], [address], 06/08/2022 06:08:32 06/08/19 23 06/08/2022 LIPID PANEL , STAND SAMI HDL cholesterol 43 mg/dL > or = 40 normal Not Available [facility] [place] [facility] [address] [facility], [place], [address], 06/08/2022 06:08:32 06/08/19 23 06/08/2022 LIPID PANEL , STAND SAMI triglyceride s 356 mg/dL <150 high If a non-f astin g speci men was colle cted, consi madi repea t trigl yceri de testi ng on a fasti ng speci men if clini judy indic ated. Braayn moore et al. J. of Clin. Lipid ol. 2015; 9:129 -169. Not Available [facility] [place] [facility] [address] [facility], [place], [address], 06/08/2022 06:08:32 06/08/19 23 06/08/2022 LIPID PANEL [...] n, which is a valid ated novel metho d provi ding nitin r accur acy than the Fried keo equat ion in the estim ation of LDL-C . Dorene beth SS et al. DEL. 2013; 310(1 9): 2061- 2068 (http ://ed carlosati on.Qu estDi Tiltaps. com/f aq/FA Q164) Not Available [facility] [place] [facility] [address] [facility], [place], [address], 06/08/2022 06:08:32 06/08/19 06/08/2022 LIPID PANEL , STAND SAMI chol/HDLC ratio 4.4 (calc ) <5.0 normal Not Available [facility] [place] [facility] [address] [place], [address], 06/08/2022 06:08:32 06/08/19 23 06/08/2022 LIPID PANEL , STAND SAMI non HDL cholesterol 145 mg/dL _(mireya c) <130 high For patie nts with diabe yina plus 1 major ASCVD risk facto r, treat ing to a non-H DL-C goal of <100 mg/dL (LDL- C of <70 mg/dL ) is consi santy a nettie ire[place] c optio n. Not Available [facility] [place] [facility] [address] [place], [address], 06/08/2022 06:08:32 06/08/19 23 06/08/2022 COMPR EHENS DAYA METAB OLIC PANEL glucose 162 mg/dL 65-139 high Non-f astin g refer ence inter yaneli Not Available [facility] [place] [facility] [address] [place], [address], 06/08/2022 06:08:32 06/08/19 23 06/08/2022 COMPR EHENS DAYA METAB OLIC PANEL urea nitrogen (BUN) 18 mg/dL 7-25 normal Not Available [facility] [place] [facility] [address] [place], [address], 06/08/2022 06:08:32 06/08/19 23 06/08/2022 COMPR EHENS DAYA METAB OLIC PANEL creatinine 1.06 mg/dL 0.70-1 .35 normal Not Available [facility] [place] [facility] [address] [place], [address], 06/08/2022 06:08:32 06/08/19 23 06/08/2022 COMPR EHENS [...] culat or Not Available [facility] [place] [facility] [address] [place], [address], 06/08/2022 06:08:32 06/08/19 23 06/08/2022 COMPR EHENS DAYA METAB OLIC PANEL BUN/creatini ne ratio NOT APPLIC ABLE (calc ) 6-22 Not Available [facility] [place] [facility] [address] [facility] [place], [address], 06/08/2022 06:08:32 06/08/19 23 06/08/2022 COMPR EHENS DAYA METAB OLIC PANEL sodium 140 mmol/ L 135-14 6 normal Not Available [facility] [place] [facility] [address] [facility] [place], [address], 06/08/2022 06:08:32 06/08/19 23 06/08/2022 COMPR EHENS DAYA METAB OLIC PANEL potassium 4.5 mmol/ L 3.5-5. 3 normal Not Available [facility] [place] [facility] [address] [facility], [address], 06/08/2022 06:08:32 06/08/19 23 06/08/2022 COMPR EHENS DYAA METAB OLIC PANEL chloride 106 mmol/ L 98-110 normal Not Available [facility] [place] [facility] [address] [facility] [place], [address], 06/08/2022 06:08:32 06/08/19 23 06/08/2022 COMPR EHENS DAYA METAB OLIC PANEL carbon dioxide 22 mmol/ L 20-32 normal Not Available [facility] [place] [facility] [address] [facility] [place], [address], 06/08/2022 06:08:32 06/08/19 23 06/08/2022 COMPR EHENS DAYA METAB OLIC PANEL calcium 9.8 mg/dL 8.6-10 .3 normal Not Available [facility] [address] [place], [address], 06/08/2022 06:08:32 06/08/19 23 06/08/2022 COMPR EHENS DAYA METAB OLIC PANEL protein, total 6.8 g/dL 6.1-8. 1 normal Not Available [facility] [address] [place], [address], 06/08/2022 06:08:32 06/08/19 23 06/08/2022 COMPR EHENS DAYA METAB OLIC PANEL albumin 4.5 g/dL 3.6-5. 1 normal Not Available [facility] [address] [place], [address], 06/08/2022 06:08:32 06/08/19 23 06/08/2022 COMPR EHENS DAYA METAB OLIC PANEL globulin 2.3 g/dL_ (calc ) 1.9-3. 7 normal Not Available [facility] [address] [facility], [address], 06/08/2022 06:08:32 06/08/19 23 06/08/2022 COMPR EHENS DAYA METAB OLIC PANEL albumin/glob ulin ratio 2.0 (calc ) 1.0-2. 5 normal Not Available [facility] [address] [place], [address], 06/08/2022 06:08:32 06/08/19 23 06/08/2022 COMPR EHENS DAYA METAB OLIC PANEL bilirubin, total 0.4 mg/dL 0.2-1. 2 normal Not Available [facility] [address] [place], [address], 06/08/2022 06:08:32 06/08/19 23 06/08/2022 COMPR EHENS DAYA METAB OLIC PANEL alkaline phosphatase 71 U/L 35-144 normal Not Available [facility] [address] [place], [address], 06/08/2022 06:08:32 06/08/19 23 06/08/2022 COMPR EHENS DAYA METAB OLIC PANEL AST 12 U/L 10-35 normal Not Available [facility] [employer] [facility] [address], [place], [address], 06/08/2022 06:08:32 06/08/19 23 06/08/2022 COMPR EHENS DAYA METAB OLIC PANEL ALT 15 U/L 9-46 normal Not Available [facility] [employer] [facility] [address], [place], [address], 06/08/2022 06:08:32 06/08/19 23 06/08/2022 CBC (INCL UDES DIFF/ PLT) white blood cell count 8.2 thous and/u L 3.8-10 .8 normal Not Available [facility] [employer] [facility] [address] [place] [place], [address], 06/08/2022 05:23:27 06/08/19 23 06/08/2022 CBC (INCL UDES DIFF/ PLT) red blood cell count 4.64 melissa on/uL 4.20-5 .80 normal Not Available [facility] [address], [place], [address], 06/08/2022 05:23:27 06/08/19 23 06/08/2022 CBC (INCL UDES DIFF/ PLT) hemoglobin 15.1 g/dL 13.2-1 7.1 normal Not Available [facility] [address], [place], [address], 06/08/2022 05:23:27 06/08/19 23 06/08/2022 CBC (INCL UDES DIFF/ PLT) hematocrit 43.3 % 38.5-5 0.0 normal Not Available [facility] [place] [facility] [address], [place], [address], 06/08/2022 05:23:27 06/08/1906/08/2022 CBC (INCL UDES DIFF/ PLT) MCV 93.3 fL 80.0-1 00.0 normal Not Available [facility] [place] [facility] [address] [facility], [place], [address], 06/08/2022 05:23:27 06/08/19 23 06/08/2022 CBC (INCL UDES DIFF/ PLT) MCH 32.5 pg 27.0-3 3.0 normal Not Available [facility] [place] [facility] [address] [facility], [place], [address], 06/08/2022 05:23:27 06/08/19 23 06/08/2022 CBC (INCL UDES DIFF/ PLT) MCHC 34.9 g/dL 32.0-3 6.0 normal Not Available [facility] [place] [facility] [address] [facility], [place], [address], 06/08/2022 05:23:27 06/08/1906/08/2022 CBC (INCL UDES DIFF/ PLT) RDW 12.6 % 11.0-1 5.0 normal Not Available [facility] [place] [facility] [address] [facility], [place], [address], 06/08/2022 05:23:27 06/08/19 23 06/08/2022 CBC (INCL UDES DIFF/ PLT) platelet count 278 thous and/u L 140-40 0 normal Not Available [facility] [place] [facility] [address] [facility], [place], [address], 06/08/2022 05:23:27 06/08/19 23 06/08/2022 CBC (INCL UDES DIFF/ PLT) MPV 10.2 fL 7.5-12 .5 normal Not Available [facility] [place] [facility] [address], [place], [address], 06/08/2022 05:23:27 06/08/19 23 06/08/2022 CBC (INCL UDES DIFF/ PLT) absolute neutrophils 3559 cells /uL 1500-7 800 normal Not Available [facility] [place] [facility] [address], [place], [address], 06/08/2022 05:23:27 06/08/19 23 06/08/2022 CBC (INCL UDES DIFF/ PLT) absolute lymphocytes 3756 cells /uL 850-39 00 normal Not Available [facility] [place] [facility] [address], [place], [address], 06/08/2022 05:23:27 06/08/19 23 06/08/2022 CBC (INCL UDES DIFF/ PLT) absolute monocytes 656 cells /uL 200-95 0 normal Not Available [facility] [place] [facility] [address], [place], [address], 06/08/2022 05:23:27 06/08/19 23 06/08/2022 CBC (INCL UDES DIFF/ PLT) absolute eosinophils 148 cells /uL 15-500 normal Not Available [facility] [place] [facility] [address], [place], [address], 06/08/2022 05:23:27 06/08/19 23 06/08/2022 CBC (INCL UDES DIFF/ PLT) absolute basophils 82 cells /uL 0-200 normal Not Available [facility] [place] [facility] [address], [place], [address], 06/08/2022 05:23:27 06/08/19 23 06/08/2022 CBC (INCL UDES DIFF/ PLT) neutrophils 43.4 % normal Not Available [facility] [place] [facility] [address] [facility], [address], 06/08/2022 05:23:27 06/08/19 23 06/08/2022 CBC (INCL UDES DIFF/ PLT) lymphocytes 45.8 % normal Not Available [facility] [place] [facility] [address] [place], [address], 06/08/2022 05:23:27 06/08/19 23 06/08/2022 CBC (INCL UDES DIFF/ PLT) monocytes 8.0 % normal Not Available [facility] [place] [facility] [address] [facility], [address], 06/08/2022 05:23:27 06/08/19 23 06/08/2022 CBC (INCL UDES DIFF/ PLT) eosinophils 1.8 % normal Not Available [facility] [place] [facility] [address] [place], [address], 06/08/2022 05:23:27 06/08/19 23 06/08/2022 CBC (INCL UDES DIFF/ PLT) basophils 1.0 % normal Not Available [facility] [place] [facility] [address] [facility], [place], [address], 06/08/2022 05:23:27 06/08/19 23 06/08/2022 TSH TSH 3.21 mIU/L 0.40-4 .50 normal Not Available [facility] [place] [facility] [address] [place], [address], 06/08/2022 07:29:13 06/08/1906/08/2022 PSA, TOTAL PSA, total 0.86 NG/mL < or = 4.00 normal The total PSA value from this assay syste m is stand ardiz ed again st the [...] disea se. Not Available [facility] [place] [facility] [address] [facility], [place], [address], 06/08/2022 07:29:13 06/08/19 23 06/12/2022 HEMOG LOBIN [...] Curre ntly, no conse nsus exist s mark elaine use of hemog lobin A1c for diagn [...] yina(A DA). Not Available [facility] [place] [facility] [address] [facility] [facility], [place], [address], 06/12/2022 02:21:10 01/03/20 22 01/02/2022 MRI proce dure (PROC ) No observ ation record ed. [email or web address] [facility] [address], [place], [address], 01/21/2022 17:15:17 04/08/19 23 04/08/2022 XR, hip + pelvi s, unila teral , 2 or 3 view No observ ation record ed. [facility] [address], [place], [address], 04/08/2022 13:23:17 Result Notes None recorded. Problems Name Problem SNOMED Code Status Onset Date Resolution Date Notes Provider Name and Address Organization Details Recorded Time Primary insomnia 8636770 Active 2019 Problem Code: F51.01; Problem Code Type: ICD-10; Not Available [facility] 2 22:42:38 Nocturia 305927622 Active 2019 Problem Code: R35.1; Problem Code Type: ICD-10; Not Available [facility] 2 22:42:41 Chronic fatigue syndrome 12199944 Completed 201912/17/2021 Problem Code: R53.82; Problem Code Type: ICD-10; TIGRE guillen, [employer] 2 08:01:49 Liver function tests outside referenc e range 741060576 Completed 201911/03/2020 Problem Code: R94.5; Problem Code Type: ICD-10; Not Available [facility] 2 22:42:43 Choleste rol screenin g Completed 201912/17/2021 TIGRE guillen, [employer] 2 08:01:49 Impacted cerumen of bilatera l ears [id number] 42912 Completed 201912/17/2021 Problem Code: H61.23; Problem Code Type: ICD-10; TIGRE guillen, [employer] 2 08:01:48 Otogenic otalgia 13088583 Completed 201903/14/2020 Not Available [facility] 2 22:42:38 Retentio n of urine 997090212 Completed 201903/14/2020 TIGRE LANGSTON [employer] 2 08:01:49 Body mass index 30+ - obesity 748025457 Completed 201912/17/2021 Problem Code: Z68.30; Problem Code Type: ICD-10; TIGRE guillen, [employer] 2 08:01:48 Neck pain 86021861 Completed 201912/17/2021 TIGRE guillen, [employer] 2 08:01:49 Low back pain 268603400 Active 2019 Problem Code: M54.5; Problem Code Type: ICD-10; Not Available [facility] 2 22:42:39 Screenin g for malignan t neoplasm of colon Completed 201912/17/2021 TIGRE LANGSTON [employer] 2 08:01:49 Degenera tion of lumbar interver tebral disc 13182011 Active 2019 Problem Code: M51.36; Problem Code Type: ICD-10; Not Available [facility] 2 22:42:47 Stool color abnormal 634938059 Completed 201903/14/2020 Problem Code: R19.5; Problem Code Type: ICD-10; Not Available [facility] 2 22:42:40 Mixed hyperlip idemia 588081207 Active 2019 Problem Code: E78.2; Problem Code Type: ICD-10; Not Available [facility] 2 22:42:38 Localize d edema 614280628 Active 2019 Problem Code: R60.0; Problem Code Type: ICD-10; Not Available [facility] 2 22:42:42 Tinea corporis 82488923 Completed 201912/17/2021 Problem Code: B35.4; Problem Code Type: ICD-10; [employer] 2 08:02:15 Neoplasm of bone 834667558 Completed 201912/17/2021 [employer]. 2 08:01:48 Superfic ial mycosis 176949784 Completed 201912/17/2021 Problem Code: B36.9; Problem Code Type: ICD-10; TIGRE guillen, [employer] 2 08:01:49 Dyspnea 403920479 Completed 201912/17/2021 Problem Code: R06.02; Problem Code Type: ICD-10; TIGRE LANGSTON [employer] 2 08:01:49 Mitral valve regurgit ation 05569628 Active 2019 Problem Code: I34.0; Problem Code Type: ICD-10; Not Available [facility] 2 22:42:38 Cardiome avril 5808297 Active 2019 Problem Code: I51.7; Problem Code Type: ICD-10; Not Available [facility] 2 22:42:44 Allergic contact dermatit is 571051466 Completed 201912/17/2021 Problem Code: L23.9; Problem Code Type: ICD-10; TIGRE guillen, [employer] 2 08:01:49 General examinat ion of patient Completed 201903/14/2020 Not Available [facility] 2 22:42:43 Pre-surg giles evaluati on Completed 201912/17/2021 TIGRE PENANER [employer] 2 08:01:48 Male erectile disorder Active 2019 TIGRE LANGSTON [employer] 2 08:02:08 Influenz a vaccine needed [id number] 06 Completed 201903/14/2020 Problem Code: Z23; Problem Code Type: ICD-10; Not Available [facility] 2 22:42:45 Bilatera l hearing loss 44162147 Completed 201912/17/2021 TIGRE guillen, [employer] 2 08:01:49 Pain of left wrist [id number] 9102 Completed 202006/12/2020 Problem Code: M25.532; Problem Code Type: ICD-10; Not Available [facility] 22:42:39 Body mass index 30+ - obesity 025274228 Completed 202006/12/2020 Problem Code: Z68.32; Problem Code Type: ICD-10; TIGRE guillen, [employer] 2 08:01:48 Diarrhea 03020671 Completed 202012/17/2021 Problem Code: R19.7; Problem Code Type: ICD-10; TIGRE guillen, [employer] 2 08:01:49 Enteric campylob acterios is 30445817 Completed 202012/17/2021 Problem Code: A04.5; Problem Code Type: ICD-10; TIGRE LANGSTON [employer], [employer] 2 08:01:49 Body mass index 30+ - obesity 482604124 Completed 202006/12/2020 Problem Code: Z68.30; Problem Code Type: ICD-10; TIGRE guillen, [employer] 2 08:01:48 Chronic fatigue syndrome 80936325 Completed 202011/03/2020 Problem Code: R53.82; Problem Code Type: ICD-10; TIGRE LANGSTON [employer], [employer] 2 08:01:49 Pre-surg giles testing Completed 202012/17/2021 Problem Code: Z01.810; Problem Code Type: ICD-10; TIGRE PENANER mindy, [employer] 2 08:01:48 Finding related to ability to pass urine 204245944 Active 2020 Not Available [facility] 22:42:39 Chronic fatigue syndrome 92903551 Completed 202011/03/2020 Problem Code: R53.82; Problem Code Type: ICD-10; TIGRE guillen, [employer] 2 08:01:49 Abnormal weight loss 111011662 Completed 202012/17/2021 Problem Code: R63.4; Problem Code Type: ICD-10; TIGRE guillen, [employer] 2 08:01:49 Dyspnea 193859556 Completed 202005/24/2021 Problem Code: R06.02; Problem Code Type: ICD-10; TIGRE guillen, [employer] 2 08:01:49 Chest pain 53479816 Completed 202005/24/2021 Problem Code: R07.9; Problem Code Type: ICD-10; Not Available [facility] 2 22:42:40 Tachycar mau 9217267 Completed 202005/24/2021 Not Available [facility] 22:42:39 Tension- type headache 644305670 Completed 202112/17/2021 Problem Code: G44.209; Problem Code Type: ICD-10; TIGRE guillen, [employer] 2 08:01:49 Acute sinusiti s 13295892 Completed 202112/17/2021 Problem Code: J01.90; Problem Code Type: ICD-10; TIGRE guillen, [employer] 2 08:01:48 Myositis 01885494 Completed 202112/17/2021 Problem Code: M60.9; Problem Code Type: ICD-10; TIGRE guillen, [employer] 2 08:01:49 COVID-19 561741723 Completed 202112/17/2021 Problem Code: U07.1; Problem Code Type: ICD-10; TIGRE LANGSTON [employer] 2 08:01:49 Otogenic otalgia 53749228 Completed 202106/11/2021 Not Available [facility] 2 22:42:38 Retentio n of urine 466214863 Completed 202112/17/2021 TIGRE LANGSTON [employer] 2 08:01:49 Problem Notes None recorded. Procedures Surgical History Date Name Laterality Status Provider Name and Address Organization Details Recorded Time 04/13/19 cholecystectomy completed Not Available [facility] 08/2021 22:56:08 Back Surgery completed [employer] 12/17/2021 14:02:03 Appendectomy completed [employer] [facility] 12/17/2021 14:02:25 Imaging Results None recorded. Procedure Notes None recorded. Medical Equipment None Reported. Allergies Allergen ID Allergen Name Allergen Category Reaction Reaction Severity Criticality Documentation Date Start Date Code Code System Note Provider Name and Address Organization Details Recorded Time 02286 Product containin g penicilli n (product) medicatio n Not available Not available Not available 12/04/2021 96519 8001 SNOMED TIGREPER LANGSTON [employer] 2 08:00:50 42644 shellfish derived food,medi cation Not available Not available Not available 12/17/2021 97845 UNK TIGRE LANGSTON [employer] 2 13:56:09 Medications Name Sig Start Date [...] in Arterial blood by Pulse oximetry Systolic And Diastolic Provider Name and Address Organization Details Last Updated DateTime 3 175.26 cm 32.8 kg/m2 385443. 51 g 98.1 [degF] 81 /min 96 % 96 % 110/70 mm[Hg] [employer] 3 10:49:11 Date Recorded Body height Body mass index (BMI) Body weight Heart rate Oxygen saturation Oxygen saturation in Arterial blood by Pulse oximetry Systolic And Diastolic Provider Name and Address Organization Details Last Updated DateTime 3 175.26 cm 31.8 kg/m2 15264.4 6 g 64 /min 95 % 95 % 108/70 mm[Hg] Kristin Pearson [employer] 3 07:57:48 Date Recorded Body height Body mass index (BMI) Body weight Body temperature Heart rate Oxygen saturation Oxygen saturation in Arterial blood by Pulse oximetry Systolic And Diastolic Provider Name and Address Organization Details Last Updated DateTime 2 175.26 cm 31 kg/m2 80847.4 g 98 [degF] 70 /min 96 % 96 % 110/60 mm[Hg] [employer] 2 14:04:06 Date Recorded Body height Body mass index (BMI) Body weight Body temperature Heart rate Oxygen saturation Oxygen saturation in Arterial blood by Pulse oximetry Systolic And Diastolic Provider Name and Address Organization Details Last Updated DateTime 2 175.26 cm 32.5 kg/m2 91254.3 2 g 99 [degF] 77 /min 95 % 95 % 120/78 mm[Hg] [employer] 2 07:40:52 Social History Question Answer Notes LastModified by Organizat ion Details LastModified Time Tobacco Smoking Status Former Smoker [employer] 12/17/2021 08:03:37 Do You Have An Advance Directive? Yes [email or web address] Information not available 12/17/2021 Are You Blind Or Do You Have Difficulty Seeing? No [email or web address] Information not available 12/17/2021 What Is Your Level Of Caffeine Consumption? Occasional Information not available 10/08/2022 In The 14 Days Before Symptom Onset, Have You Had Close Contact With A Laboratory-confir med COVID-19 While That Case Was Ill? No [email or web address] Information not available 12/17/2021 In The 14 Days Before Symptom Onset, Have You Had Close Contact With A Person Who Is Under Investigation For COVID-19 While That Person Was Ill? No [email or web address] Information not available 12/17/2021 Have You Been To An Area Known To Be High Risk For COVID-19? No [email or web address] Information not available 12/17/2021 Are You Deaf Or Do You Have Serious Difficulty Hearing? No [email or web address] Information not available 12/17/2021 What Type Of Diet Are You Following? REGULAR [email or web address] Information not available 12/17/2021 Do You Have A Medical Power Of Patroller? Yes [email or web address] Information not available 12/17/2021 What Was The Date Of Your Most Recent Tobacco Screening? 10/08/2022 Information not available 10/08/2022 What Is Your Current Pack Years? [email or web address] ars [email or web address] Information not available 12/17/2021 What Is Your Relationship Status? [email or web address] Information not available 12/17/2021 Has Tobacco Cessation Counseling Been Provided? Yes Information not available 10/08/2022 On What Date Was Tobacco Cessation Counseling Provided? 10/08/2022 Information not available 10/08/2022 Have You Recently Traveled Abroad? No [email or web address] Information not available 12/17/2021 Do You Have Difficulty Walking Or Climbing Stairs? No [email or web address] Information not available 12/17/2021 Are You Currently In School? No Information not available 12/17/2021 Do You Have Any Dietary Restrictions? No [email or web address] Information not available 12/17/2021 Sex: Male Functional Status Question Answer Note LastModified by Organizat ion Details LastModified Time Do you use any illicit or recreational drugs? No Information not available 10/08/2022 What is your level of alcohol consumption? Occasional Information not available 10/08/2022 Do you have transportation difficulties? No [email or web address] Information not available 12/17/2021 Are you able to walk? [email or web address] Information not available 12/17/2021 Do you have difficulty doing errands alone? No [email or web address] Information not available 12/17/2021 Are you able to care for yourself independently? Yes [email or web address] Information not available 12/17/2021 Do you have difficulty dressing, bathing, grooming, or toileting? No [email or web address] Information not available 12/17/2021 What is your exercise level? Occasional [email or web address] Information not available 12/17/2021 Mental Status Question Answer Note LastModified by Organization D etails LastModified Time Do you have difficulty concentrating, remembering or making decisions? No [email or web address] Information no t available 12/17/2021 Family History Relationship Description Onset Age of this Age Resolved Age Notes LastModified by Organization Details LastModified Time Mother Family history of hyperlipidem ia [email or web address] Not available 12/17 14:00:24 Mother Family history of Hypertension Not available 14:00:27 Mother Diabetes mellitus [email or web address] Not available 12/17 14:00:37 Medical History Condition Response Allergies (Food, seasonal, environmental ) Y Acid Reflux (GERD) Y Asthma Y High Cholesterol Y Immunizations Vaccine Type Date Status Note Provider Nam e and Address Organization Details Recorded Time Influenza, split virus, quadrivalent, preservative 0 completed TIGRE guillen [employer]. 03/11/2022 15:14:29 Tdap 6 completed TIGRE guillen [employer] 03/11/2022 15:14:29 COVID-19, mRNA, LNP-S, PF, 100 mcg/0.5mL dose or 50 mcg/0.25mL dose 1 completed TIGRE guillen [employer] 03/11/2022 15:14:29 Influenza, MDCK, quadrivalent, PF 2 completed TIGREPER guillen [employer] 03/11/2022 15:14:29 COVID-19, mRNA, LNP-S, PF, 100 mcg/0.5mL dose or 50 mcg/0.25mL dose 1 completed TIGREPER guillen [employer] 03/11/2022 15:14:29 COVID-19, mRNA, LNP-S, PF, 100 mcg/0.5mL dose or 50 mcg/0.25mL dose 1 completed TIGRE IVIS mind[employer] 03/11/2022 15:14:29 Past Encounters Encounter ID Performer Location Encounter Start Date Encounter Closed Date Diagnosis/Indication Diagnosis SNOMED-CT Code Diagnosis ICD10 Code Diagnosis Note [id number] [place] [address] 12/17/2021 13:37:47 12/17/2021 14:34:11 Mixed hyperlipidemia 670865389 E78.2 Primary insomnia 7935047 F51.01 Low back pain 152246041 M54.50 Essential hypertension 44443771 I10 Gastroesop hageal reflux disease without esophagitis 306312757 K21.9 Erectile dysfunction 860 814261 F52.21 Chronic ob structive pulmonary disease 62969951 J44.9 Seizure disorder 3900344 02 G40.[id number] [address] 03/11/2022 14:43:36 03/11/2022 15:42:25 Localized edema 035973189 R60.0 Low back pain 932983849 M54.50 Mixed hyperlipidemia 267 544343 E78.2 Essential hypertension 79092520 I10 Seizure disorder 4836409 02 G40.909 Primary insomnia 9111019 F51.01 Chronic ob structive pulmonary disease 99864267 J44.9 Erectile dysfunction 860 933139 F52.21 Gastroesop hageal reflux disease without esophagitis 213534308 K21.9 [id number] [facility] [address] [place] [address] 06/07/2022 10:36:37 06/07/2022 11:23:08 Finding related to ability to pass urine 272151514 N40.1 Mixed hyperlipidemia 267 769962 E78.2 Chronic fa tigue syndrome 70848902 R53.82 Essential hypertension 97576165 I10 Seizure disorder 5607213 02 G40.909 Low back pain 946426206 M54.50 Primary insomnia 2773821 F51.01 Gastroesop hageal reflux disease without esophagitis 842349502 K21.9 Erectile dysfunction 860 612836 F52.21 Localized edema 50198614 4 R60.0 Body mass index 30+ - obesity 434932351 Z68.32 [id number] Ciara Shay [place] [address] 10/08/2022 07:46:24 10/08/2022 08:38:44 Essential hypertension 49977009 I10 Mixed hyperlipidemia 267 816846 E78.2 Seizure disorder 2709482 02 G40.909 Primary insomnia 0650739 F51.01 Gastroesop hageal reflux disease without esophagitis 242760180 K21.9 Erectile dysfunction 860 674309 F52.21 Localized edema 91452128 4 R60.0 Body mass index 30+ - obesity 857218246 Z68.32 Health Concerns Section Related Observation LastModified by Organization Detai ls LastModified Time None Recorded Concern Status LastModified by Organization Details LastModified Time None Recorded Advance Directives Directive Y: Payers Insurance Date Sequence Insurance Name Policy Number Policy Stone Covered Member ID Stone Member ID Guarantor Name 11/07/2022 1 UNSPECIFIED REMIT PAYOR Eric Laguna 10/05/2022 1 [facility] (MEDICAID REPLACEMENT - HMO) Eric Laguna [id number] Eric Laguna
--- OUTSIDE RECORDS SUMMARY | 2024-10-26 15:40 | XMS_ITS | Clinical Summary ---
Author Organization [facility] Address [address] [place] [address] Care Team Providers Care [employer] Name Role Phone Ciara Shay APRN Primary Care Provider [phone] Allergies Active Allergy Reactions Criticality Noted Date [...] Influenza, injectable, quadrivalent 12/27/2019 Moderna COVID-19 Vaccine (Home Paraprofessional) 12+ years ,05/25/2020 Tdap 01/21/2006 Family History [...] Tdap) 01/22/2016 01/21/2006 [facility]-Depression Screening 12/28/2022 12/28/2021 HUM-VTOKI-27 Vaccine ( season) 2023 11/30/2020, 06/22/2020, 05/25/2020 [facility]-Influenza Vaccine (#1) 11/29/202412/11, 12/27/2019 [facility]-RSV Vaccine: 60+ Years o r [...] patient's age to complete this topic Insurance [facility] Care Teams [employer] Relationship Specialty Start Date End Date Ciara Shay APRN PCP - General 08/11/20
--- OUTSIDE RECORDS SUMMARY | 2024-10-26 15:40 | XMS_ITS | Data Portability ---
Author Organization [facility] CRAIG Armstrong [facility] Address [address] [place] [address] Care Team Providers Care Day Care Aide Name Role Phone KALPANA MONTELONGO Primary Care Provider Assessment Encounter Date Assessment Date Assessment LastModified by Organization Details LastModified Time 05/06/2019 05/06/2019 Medications adjusted. Cystoscopy to evaluate lower urinary tract. [email or web address] Not available 05/08/2019 16:17:02 05/13/2019 05/13/2019 DATE OF PROCEDUR E: 05/13/19 PROCEDURE PERFORMED: Cystourethroscopy SURGEON: Trung Jc M.D. ANESTHESIA: Local BLOOD LOSS: None PREOPERATIVE [...] Discharged home with instructions for outpatient follow-up. [email or web address] Not available 05/16/2019 19:04:39 Plan of Treatment Reminders Order Date Submit Date Provider Last Modified By Organization Details Last Modified Time Details Appointments None recorded . Lab urinalys is, dipstick , auto 2019 020 [email or web address] [facility], [address], [address], [place], [address], 0 16:16:46 Referral None recorded . Procedures None recorded . Surgeries cystosco py (SURG) 2019 020 chris [facility], [address] [facility], [facility] [address], [place], [address], 0 12:06:28 Imaging None recorded . Medication Orders Uroxatra l 10 mg tablet,e xtended release 2019 020 kristopher [facility], [address] [place], [address], 0 15:47:50 Patient TargetsNo targets recorded. Patient InstructionsNo instructions recorded. Reason for Referral None Reported. Results Created Date Observation Date Name Description Value Unit Range Abnormal Flag Note LastModifiedBy Organization Detail LastModifiedTime 05/06/19 20 05/06/2019 urina lysis , dipst ick, auto Unknown Analyte Yellow Not Available [facility] [address], [place], [address], 05/06/2019 15:46:32 05/06/19 20 05/06/2019 urina lysis , dipst ick, auto Unknown Analyte Clear Not Available [facility] [address], [place], [address], 05/06/2019 15:46:32 05/06/19 20 05/06/2019 urina lysis , dipst ick, auto Unknown Analyte 1.005 Not Available [facility] [address], [place], [address], 05/06/2019 15:46:32 05/06/19 20 05/06/2019 urina lysis , dipst ick, auto Unknown Analyte 1.003 - 1.035 Not Available [facility] [address], [place], [address], 05/06/2019 15:46:32 05/06/19 20 05/06/2019 urina lysis , dipst ick, auto Unknown Analyte 7.0 Not Available [facility] [address], [place], [address], 05/06/2019 15:46:32 05/06/19 20 05/06/2019 urina lysis , dipst ick, auto Unknown Analyte 5.0 - 8.0 Not Available [facility] [address], [place], [address], 05/06/2019 15:46:32 05/06/19 20 05/06/2019 urina lysis , dipst ick, auto Unknown Analyte Negati ve Not Available [facility] [address], [place], [address], 05/06/2019 15:46:32 05/06/19 20 05/06/2019 urina lysis , dipst ick, auto Unknown Analyte Negati ve Not Available [facility] [address], [place], [address], 05/06/2019 15:46:32 05/06/19 20 05/06/2019 urina lysis , dipst ick, auto Unknown Analyte Negati ve Not Available [facility] [address], [place], [address], 05/06/2019 15:46:32 05/06/19 20 05/06/2019 urina lysis , dipst ick, auto Unknown Analyte Negati ve Not Available [facility] [address], [place], [address], 05/06/2019 15:46:32 05/06/19 20 05/06/2019 urina lysis , dipst ick, auto Unknown Analyte Negtiv e Not Available [facility] [address], [place], [address], 05/06/2019 15:46:32 05/06/19 20 05/06/2019 urina lysis , dipst ick, auto Unknown Analyte Negati ve - Trace Not Available [facility] [address], [place], [address], 05/06/2019 15:46:32 05/06/19 20 05/06/2019 urina lysis , dipst ick, auto Unknown Analyte Normal Not Available [facility] [address], [place], [address], 05/06/2019 15:46:32 05/06/19 20 05/06/2019 urina lysis , dipst ick, auto Unknown Analyte Normal Not Available [facility] [address], [place], [address], 05/06/2019 15:46:32 05/06/19 20 05/06/2019 urina lysis , dipst ick, auto Unknown Analyte Negati ve Not Available [facility] [address], [place], [address], 05/06/2019 15:46:32 05/06/19 20 05/06/2019 urina lysis , dipst ick, auto Unknown Analyte Negati ve Not Available [facility] [address], [place], [address], 05/06/2019 15:46:32 05/06/19 20 05/06/2019 urina lysis , dipst ick, auto Unknown Analyte Normal Not Available [facility] [address], [place], [address], 05/06/2019 15:46:32 05/06/19 20 05/06/2019 urina lysis , dipst ick, auto Unknown Analyte Normal - 1mg/dl Not Available [facility] [address], [place], [address], 05/06/2019 15:46:32 05/06/19 20 05/06/2019 urina lysis , dipst ick, auto Unknown Analyte Negati ve Not Available [facility] [address], [place], [address], 05/06/2019 15:46:32 05/06/19 20 05/06/2019 urina lysis , dipst ick, auto Unknown Analyte Negati ve Not Available [facility] [address], [place], [address], 05/06/2019 15:46:32 05/06/19 20 05/06/2019 urina lysis , dipst ick, auto Unknown Analyte Negati ve Not Available [facility] [address], [place], [address], 05/06/2019 15:46:32 05/06/19 20 05/06/2019 urina lysis , dipst ick, auto Unknown Analyte Negati ve Not Available [facility] [address], [place], [address], 05/06/2019 15:46:32 05/06/19 20 05/06/2019 urina lysis , dipst ick, auto Unknown Analyte Clean Catch Not Available [facility] [address], [place], [address], 05/06/2019 15:46:32 05/06/19 20 05/06/2019 urina lysis , dipst ick, auto Unknown Analyte Automa lana Not Available [facility] [address], [place], [address], 05/06/2019 15:46:32 Result Notes None recorded. Procedures Surgical History Date Name Laterality Status Provider Name and Address Organization Details Recorded Time [facility] 15:42:39 Appendectomy completed [facility] 05/06/2019 15:43:02 Circumcision completed [facility] 05/06/2019 15:43:16 Imaging Results None recorded. Procedure Notes None recorded. Medical Equipment None Reported. Allergies Allergen ID Allergen Name Allergen Category Reaction Reaction Severity Criticality Documentation Date Start Date Code Code System Note Provider Name and Address Organization Details Recorded Time 898439 Product containin g penicilli n (product) medicatio n Not available Not available Not available 05/06/2019 87272 8001 SNOMED [facility] 0 15:48:08 Medications Name Sig Start [...] Updated DateTime 05/06/2019 175.26 cm 32.5 kg/m2 39985.32 g [facility] 05/06/2019 15:40:42 Social History Question Answer Notes LastModified by Organizat ion Details LastModified Time Tobacco Smoking Status Former Smoker [facility] 05/06/2019 15:42:15 Marital Status Single [email or web address] [employer] not available 05/06/2019 Sex: Unknown Functional Status Question Answer Note LastModified by Organization D etails LastModified Time What is your level of alcohol consumption? None [email or web address] Information not available 05/06/2019 Mental Status None recorded. Family History Relationship Description Onset Age of this Age Resolved Age Notes LastModified by Organization Details LastModified Time Father No current problems or disability [email or web address] Not available 05/06 15:42:08 Mother No current problems or disability [email or web address] Not available 05/06 15:42:08 Medical History Condition Response False Teeth Y Stroke Y Thyroid Disorder Y Past Encounters Encounter ID Performer Location Encounter Start Date Encounter Closed Date Diagnosis/Indication Diagnosis SNOMED-CT Code Diagnosis ICD10 Code Diagnosis Note [id number] TRUNG JC MD [facility] [address] [place] [address],[place] [address] 05/06/2019 14:12:47 05/06/2019 15:05:36 Benign prostatic hyperplasia with outflow obstruction 706865220 N40.1 [id number] TRUNG JC MD SURGERY SCHEDULE [address] [place] [address] 05/13/2019 06:18:28 05/13/2019 06:18:48 Health Concerns Section Related Observation LastModified by Organization Detai ls LastModified Time None Recorded Concern Status LastModified by Organization Details LastModified Time None Recorded Advance Directives Directive None Recorded Payers Insurance Date Sequence Insurance Name Policy Number Policy Stone Covered Member ID Stone Member ID Guarantor Name 06/21/2019 1 [employer] (MEDICAID REPLACEMENT - HMO) Eric Laguna [id number] Eric Laguna
[2024-10-26 15:45] LABS: Adenovirus F 40/41, stool Not Detected (NotDetected); Clostridium Difficile A/B, PCR Not Detected (NotDetected); Cyclospora Cayetanesis Not Detected (NotDetected); Plesimonas Shigalloides, PCR Not Detected (NotDetected); Salmonella, PCR Not Detected (NotDetected); Shiga-like toxin E coli Not Detected (NotDetected); Shigella Enterovasive E coli Not Detected (NotDetected); Vibrio, PCR Not Detected (NotDetected); Yersinia Entercolitica, PCR Not Detected (NotDetected)
== END 2024-10-26 23:59 | disposition home or self-care (01) ==
LOC: LAB 15:37
PROVIDERS: PCP Nurse Practitioner Family; Visit Provider Nurse Practitioner Family
DX: R19.7 Diarrhea, unspecified (principal)
CPT/HCPCS: 87506

== ENCOUNTER 2025-01-24 07:27 | Outpatient (CLI) | payer MEDICAID, SELFPAY ==
--- NOTE | 2025-01-24 07:30 | CT_ITS ---
FINAL REPORT TECHNIQUE: Axial images were obtained through the chest without contrast. Coronal and sagittal reconstructions obtained and reviewed. Supine inspiration and expiration and prone inspiration hi-resolution images were obtained and reviewed. This study was performed with techniques to keep radiation doses as low as reasonably achievable, (ALARA). Individualized dose reduction techniques using automated exposure control or adjustment of mA and/or kV according to the patient's size were employed. CLINICAL HISTORY: Restrictive lung disease, possible interstitial lung disease COMPARISON: 07/27/2021 FINDINGS: No mediastinal mass or adenopathy. The heart size is normal. There are dense coronary artery calcifications. Coronary artery stents are present. There is no pericardial or pleural effusion. No suspicious infiltrate or nodule identified. No bronchiectasis. No airspace infiltrates identified. Limited images of the upper abdomen demonstrate no acute findings. The gallbladder is absent. IMPRESSION: No evidence of interstitial lung disease. Reviewed, Interpreted and Dictated by Dragan Palencia MD Transcribed by Joleen Parry Authenticated and [facility]
--- OUTSIDE RECORDS SUMMARY | 2025-01-24 07:31 | XMS_ITS | Clinical Summary ---
Author Organization [facility] Address [address] [place] [address] Care Team Providers Care Dog Food Dough Mixer Name Role Phone Ciara Shay APRN Primary Care Provider [phone] Allergies Active Allergy Reactions Criticality Noted Date [...] Influenza, injectable, quadrivalent 12/27/2019 Moderna COVID-19 Vaccine (Clinical Pharmacy Coordinator) 12+ years ,05/25/2020 Tdap 01/21/2006 Family History [...] [facility]-HIV Screening 1960 [facility]-Hepatitis C Screening 1960 [facility]-Infant/Child/Adol SDOH Screenings 1960 [facility]- SDOH Screenings 1978 [facility]-Adult SDOH Screenings 1978 CT Colonography 2005 Colonoscopy 2005 FIT-DNA 2005 FIT 2005 FOBT 2005 Sigmoidoscopy 2005 [facility]-Colorectal Cancer Screening 2005 [facility]-Pneumococcal Vaccine: 50 + Years (1 of 1 - PCV) 2010 [facility]-Zoster Vaccines (1 of 2) 2010 [facility]-DTaP,Tdap,and Td Vaccine s (2 - Td or Tdap) 01/22/2016 01/21/2006 [facility]-Depression Screening 12/28/2022 12/28/2021 EOD-HJWPV-20 Vaccine (2024- season) 2024 11/30/2020, 06/22/2020, 05/25/2020 [facility]-Influenza Vaccine (#1) 11/29/202412/11, 12/27/2019 [facility]-RSV Vaccine: 60+ Years o r (1 - 1-dose 75+ series) 2035 HPV Vaccines Aged Out No longer eligi [...] patient's age to complete this topic Insurance [facility] Care Teams Dog Food Dough Mixer Relationship Specialty Start Date End Date Ciara Shay APRN PCP - General 08/11/20
--- OUTSIDE RECORDS SUMMARY | 2025-01-24 07:31 | XMS_ITS | Data Portability ---
Author Organization [facility] CRAIG Armstrong HOWARD [facility]OS[facility] Address [address] [place] [address] Care Team Providers Care Digital Field Service Technician Name Role Phone KALPANA MONTELONGO Primary Care Provider Assessment Encounter Date Assessment Date Assessment LastModified by Organization Details LastModified Time 05/06/2019 05/06/2019 Medications adjusted. Cystoscopy to evaluate lower urinary tract. Not available 05/08/2019 16:17:02 05/13/2019 05/13/2019 DATE [...] Discharged home with instructions for outpatient follow-up. [email or web address] Not available 05/16/2019 19:04:39 Plan of Treatment Reminders Order Date Submit Date Provider Last Modified By Organization Details Last Modified Time Details Appointments None recorded . Lab urinalys is, dipstick , auto 2019 020 [email or web address] [facility], [address], [place], [address], 0 16:16:46 Referral None recorded . Procedures None recorded . Surgeries cystosco py (SURG) [address] [facility], [address], [facility] [address], [place], [address], 0 12:06:28 Imaging None recorded . Medication Orders Uroxatra l 10 mg tablet,e xtended release 2019 020 kristopher [facility], [address] [place], [address], 0 15:47:50 Patient TargetsNo targets recorded. Patient InstructionsNo instructions recorded. Reason for Referral None Reported. Results Created Date Observation Date Name Description Value Unit Range Abnormal Flag Note LastModifiedBy Organization Detail LastModifiedTime 05/06/19 20 05/06/2019 urina lysis , dipst ick, auto Unknown Analyte Yellow Not Available [facility] [place] [address], [place], [address], 05/06/2019 15:46:32 05/06/19 20 05/06/2019 urina lysis , dipst ick, auto Unknown Analyte Clear Not Available [facility] [address], [place], [address], 05/06/2019 15:46:32 05/06/19 20 05/06/2019 urina lysis , dipst ick, auto Unknown Analyte 1.005 Not Available [facility] [address], [place], [address], 05/06/2019 15:46:32 05/06/19 20 05/06/2019 urina lysis , dipst ick, auto Unknown Analyte 1.003 - 1.035 Not Available [facility] [address], [place], [address], 05/06/2019 15:46:32 05/06/19 20 05/06/2019 urina lysis , dipst ick, auto Unknown Analyte 7.0 Not Available [facility] With [address], [place], [address], 05/06/2019 15:46:32 05/06/19 20 05/06/2019 urina lysis , dipst ick, auto Unknown Analyte 5.0 - 8.0 Not Available [facility] With [address], [place], [address], 05/06/2019 15:46:32 05/06/19 20 05/06/2019 urina lysis , dipst ick, auto Unknown Analyte Negati ve Not Available [facility] With [address], [place], [address], 05/06/2019 15:46:32 05/06/19 20 05/06/2019 urina lysis , dipst ick, auto Unknown Analyte Negati ve Not Available [facility] With [address], [place], [address], 05/06/2019 15:46:32 05/06/19 20 05/06/2019 urina lysis , dipst ick, auto Unknown Analyte Negati ve Not Available [facility] With [address], [place], [address], 05/06/2019 15:46:32 05/06/19 20 05/06/2019 urina lysis , dipst ick, auto Unknown Analyte Negati ve Not Available [facility] With [address], [place], [address], 05/06/2019 15:46:32 05/06/19 20 05/06/2019 urina lysis , dipst ick, auto Unknown Analyte Negtiv e Not Available [facility] With [address], [place], [address], 05/06/2019 15:46:32 05/06/19 20 05/06/2019 urina lysis , dipst ick, auto Unknown Analyte Negati ve - Trace Not Available [facility] [address], [place], [address], 05/06/2019 15:46:32 05/06/19 20 05/06/2019 urina lysis , dipst ick, auto Unknown Analyte Normal Not Available [facility] With [address], [place], [address], 05/06/2019 15:46:32 05/06/19 20 05/06/2019 urina lysis , dipst ick, auto Unknown Analyte Normal Not Available [facility] With [address], [place], [address], 05/06/2019 15:46:32 05/06/19 20 05/06/2019 urina lysis , dipst ick, auto Unknown Analyte Negati ve Not Available [facility] [place] [address], [place], [address], 05/06/2019 15:46:32 05/06/19 20 05/06/2019 urina lysis , dipst ick, auto Unknown Analyte Negati ve Not Available [facility] [place] [address], [place], [address], 05/06/2019 15:46:32 05/06/19 20 05/06/2019 urina lysis , dipst ick, auto Unknown Analyte Normal Not Available [facility] [place] [address], [place], [address], 05/06/2019 15:46:32 05/06/19 20 05/06/2019 urina lysis , dipst ick, auto Unknown Analyte Normal - 1mg/dl Not Available [facility] [address], [place], [address], 05/06/2019 15:46:32 05/06/19 20 05/06/2019 urina lysis , dipst ick, auto Unknown Analyte Negati ve Not Available [facility] With [address], [place], [address], 05/06/2019 15:46:32 05/06/19 20 05/06/2019 urina lysis , dipst ick, auto Unknown Analyte Negati ve Not Available [facility] [address], [place], [address], 05/06/2019 15:46:32 05/06/19 20 05/06/2019 urina lysis , dipst ick, auto Unknown Analyte Negati ve Not Available [facility] [address], [place], [address], 05/06/2019 15:46:32 05/06/19 20 05/06/2019 urina lysis , dipst ick, auto Unknown Analyte Negati ve Not Available [facility] [address], [place], [address], 05/06/2019 15:46:32 05/06/19 20 05/06/2019 urina lysis , dipst ick, auto Unknown Analyte Clean Catch Not Available [facility] [address], [place], [address], 05/06/2019 15:46:32 05/06/19 20 05/06/2019 urina lysis , dipst ick, auto Unknown Analyte Automa lana Not Available [facility] [address], [place], [address], 05/06/2019 15:46:32 Result Notes None recorded. Procedures Surgical History Date Name Laterality Status Provider Name and Address Organization Details Recorded [facility] 15:42[facility]39 [facility] 05/06/2019 15:43:02 Circumcision completed [facility] 05/06/2019 15:43:16 Imaging Results None recorded. Procedure Notes None recorded. Medical Equipment None Reported. Allergies Allergen ID Allergen Name Allergen Category Reaction Reaction Severity Criticality Documentation Date Start Date Code Code System Note Provider Name and Address Organization Details Recorded Time 329748 Product containin g penicilli n (product) medicatio n Not available Not available Not available 05/06/2019 21857 8001 SNOMED [facility] Medications Name Sig Start Date [...] Updated DateTime 05/06/2019 175.26 cm 32.5 kg/m2 64451.32 g Deseriee Alpha [facility] 05/06/2019 15:40:42 Social History Question Answer Notes LastModified by Organizat ion Details LastModified Time Tobacco Smoking Status Former Smoker Deseriee Alpha mindy [facility] 05/06/2019 15:42:15 Marital Status Single Informatio n [...] Diagnosis SNOMED-CT Code Diagnosis ICD10 Code Diagnosis IMO Codes Diagnosis Note [id number] TRUNG JC MD [facility] [address] [facility],[place] [address] 05/06/2019 14:12:47 05/06/2019 15:05:36 Benign prostatic hyperplasia with outflow obstruction 860769295 N40.1 [id number] TRUNG JC MD SURGERY SCHEDULE [address] [place] [address] 05/13/2019 06:18:28 05/13/2019 06:18:48 Health Concerns Section Related Observation LastModified by Organization Detai ls LastModified Time None Recorded Concern Status LastModified by Organization Details LastModified Time None Recorded Advance Directives Directive None Recorded Payers Insurance Date Sequence Insurance Name Policy Number Policy Stone Covered Member ID Stone Member ID Guarantor Name 06/21/2019 1 [facility] (MEDICAID REPLACEMENT - HMO) Eric Laguna [id number] Eric Laguna Notes Date Note Type Note Provider Name and Address Organization Details Recorded Time 05/06/2019 text/html 59-year-old male in the office for consultation and evaluation of urinary retention. He began having troubles with emptying his bladder adequately during senior living incarceration, initially noticed in 2013. He was managed with intermittent catheterization while in senior living. Since discharge in August 2018 he has not performed intermittent catheterization and continues to have intermittent lower urinary symptoms. He has variable daytime frequency with decreased force of stream. He has nocturia 2-3 times nightly. No hematuria or dysuria. He takes tamsulosin. TRUNG JC MD [address] [place] [address], [address], [facility] 05/08/2019 16:17:30
--- OUTSIDE RECORDS SUMMARY | 2025-01-24 07:31 | XMS_ITS | Data Portability ---
Author Organization [employer] [facility] Address [address] [place] [address] Care Team Providers Care Box Stacker Name Role Phone OWEN HUNG Disciplinary Hearing Officer [phone] CIARA SHAY Primary Care Provider Unavailabl e Assessment No assessment recorded. Plan of Treatment Reminders Order Date Submit Date Provider Last Modified By Organization Details Last Modified Time Details Appointments None recorded. Lab lipid panel, serum - room 3 2022 023 [employer] [facility], [address], [place], [address], 3 05:23:26 CBC w/ auto diff 2022 023 [employer] [facility], [address], [place], [address], 3 05:23:27 CMP, serum or plasma 2022 023 [employer] [facility], [address], [place], [address], 3 05:23:27 TSH, serum or plasma 2022 023 [employer] [facility], [address], [place], [address], 3 05:23:28 PSA, serum or plasma 2022 023 [employer] [facility], [address], [place], [address], 3 05:23:28 Referral pain management referral 2021 022 esdras Rodriguez MD, [address], [address], [place], [address], 2 11:37:33 Procedures None recorded. Surgeries None recorded. Imaging None recorded. Medication Orders atorvastati n 40 mg tablet 2022 023 [facility], [address] [facility] [address], [place], [place], [id number], 3 08:25:53 mirtazapine 30 mg tablet 2022 023 [facility] #, [address] [facility] [address] , [place], [place], [id number], 3 09:46:23 sildenafil 50 mg tablet 2022 023 [facility] #, [address] [facility] [address], [place], [place], [id number], 3 09:46:24 divalproex 500 mg tablet,diego yed release 2022 023 [facility] #, [address] [facility] [address], [place], [place], [id number], 3 08:25:56 pantoprazol e 40 mg tablet,diego yed release 2022 023 [facility] #, [address], [place], [place], [id number], 3 09:46:21 aspirin 81 mg tablet,diego yed release 2022 023 [facility], [address] [facility] [address], [place], [id number], 3 08:25:54 clopidogrel 75 mg tablet 2022 023 [facility] [address] [facility] [address], [place], [id number], 3 08:25:55 isosorbide mononitrate ER 30 mg tablet,exte nded release 24 hr 2022 023 [facility], [address] [facility] [address], [place], [id number], 3 08:25:55 metoprolol tartrate 25 mg tablet 2022 023 [facility], [address] [facility] [address], [place], [id number], 3 08:25:56 spironolact one 25 mg tablet 2022 023 [facility], [address] [facility] [address], [place], [id number], 3 09:46:22 atorvastati n 40 mg tablet 2022 023 [facility] #, [address] [facility] [address], [place], [id number], 3 11:21:29 sildenafil 50 mg tablet 2022 023 [facility], [address] [facility] [address], [place], [id number], 3 11:21:26 mirtazapine 30 mg tablet 2022 023 [facility], [address] [facility] [address], [place], [id number], 3 11:21:27 ibuprofen 800 mg tablet 2022 023 [facility], [address] [facility] [address], [place], [id number], 3 11:21:28 divalproex 500 mg tablet,diego yed release 2022 023 [facility], [address] [facility] [address], [place], [id number], 3 11:21:32 pantoprazol e 40 mg tablet,diego yed release 2022 023 [facility], [address] [facility] [address], [place], [id number], 3 11:21:28 aspirin 81 mg tablet,diego yed release 2022 023 [facility], [address] [facility] [address], [place], [id number], 3 11:21:31 clopidogrel 75 mg tablet 2022 023 [facility], [address] [facility] [address], [place], [id number], 3 11:21:28 isosorbide mononitrate ER 30 mg tablet,exte nded release 24 hr 2022 023 [facility], [address] [facility] [address], [place], [id number], 3 11:21:27 metoprolol tartrate 25 mg tablet 2022 023 [facility] #04169, [address], [place], [id number], 3 11:21:28 spironolact one 25 mg tablet 2022 023 [facility], [address], [place], [id number], 3 11:21:31 atorvastati n 40 mg tablet 2021 022 [facility], [address], [place], [id number], 2 16:05:11 sildenafil 50 mg tablet 2021 [facility], [address] [facility] [address], [place], [id number], 2 16:04:44 mirtazapine 30 mg tablet 2021 022 [facility], [address] [facility] [address], [place], [id number], 2 16:04:41 ibuprofen 800 mg tablet 2021 [facility], [address], [place], [id number], 2 16:05:14 divalproex 500 mg tablet,diego yed release 2021 022 [facility]12, [address], [place], [place], [id number], 2 16:06:36 pantoprazol e 40 mg tablet,diego yed release 2021 022 [facility] #61995, [address], [place], [id number], 16:04:42 aspirin 81 mg tablet,diego yed release 2021 [facility] #36502, [address], [place], [place], [id number], 16:05:06 clopidogrel 75 mg tablet 2021 [facility] #01643, [address], [place], [place], [id number], 16:04:43 metoprolol tartrate 25 mg tablet 2021 [facility] #69332, [address], [place], [place], [id number], 16:05:09 isosorbide mononitrate ER 30 mg tablet,exte nded release 24 hr 2021 [facility]43918, [address], [place], [place], [id number], 16:05:01 spironolact one 25 mg tablet 2021 [facility] #68050, [address], [place], [place], [id number], 16:04:43 atorvastati n 40 mg tablet 2021 [facility] #30355, [address], [place], [place], [id number], 15:11:11 mirtazapine 30 mg tablet 2021 022 [facility] #06320, [address] [facility] [address], [place], [id number], 2 15:11:13 ibuprofen 800 mg tablet 2021 022 [facility] #53421, [address] [facility] [address], [place], [id number], 2 15:11:10 divalproex 500 mg tablet,diego yed release 2021 022 [facility] #38109, [address] [facility] [address], [place], [id number], 2 15:11:09 metoprolol tartrate 25 mg tablet 2021 022 [facility]39, [address] [facility] [address], [place], [id number], 2 15:11:10 aspirin 81 mg tablet,diego yed release 2021 022 [email or web address] 3 [facility] #18281, [address] [facility] [address], [place], [id number], 2 15:30:27 Patient TargetsNo targets recorded. Patient Instructions Encounter Date Encounter Id Patient Instructions Last Modified By Organization Details Last Modified Time 12/17/2021 [id number] chronic obstructive pulmonary disease (COPD): care instructions [email or web address] Not available 12/17/2021 15:11:01 Reason for Referral Pain Management Referral for Low back pain Referring Physician: Ciara Shay, Family Medicine, Encounter Date: 12/17/2021 Results Created Date Observation Date Name Description Value Unit Range Abnormal Flag Note LastModifiedBy Organization Detail LastModifiedTime 06/08/19 23 06/08/2022 LIPID PANEL , STAND SAMI cholesterol, total 188 mg/dL <200 normal Not Available [facility] [address] [facility] [facility] [facility], [place], [address], 06/08/2022 06:08:32 06/08/19 23 06/08/2022 LIPID PANEL , STAND SAMI HDL cholesterol 43 mg/dL > or = 40 normal Not Available [facility] [place] [facility] [address] [facility], [place], [address], 06/08/2022 06:08:32 06/08/19 23 06/08/2022 LIPID PANEL , STAND SAMI triglyceride s 356 mg/dL <150 high If a non-f astin g speci men was colle cted, consi madi repea t trigl yceri de testi ng on a fasti ng speci men if clini judy indic ated. Brayan moore et al. J. of Clin. Lipid ol. 2015; 9:129 -169. Not Available [facility] [place] [facility] [address] [facility], [place], [address], 06/08/2022 06:08:32 06/08/19 23 06/08/2022 LIPID PANEL [...] 2061- 2068 (http ://ed carlosati on.Qu estDi Splashscores. com/f aq/FA Q164) Not Available [facility] [place] [facility] [address] [facility], [place], [address], 06/08/2022 06:08:32 06/08/19 06/08/2022 LIPID PANEL , STAND SAMI chol/HDLC ratio 4.4 (calc ) <5.0 normal Not Available [facility] [place] [facility] [address] [facility] [place] [place], [address], 06/08/2022 06:08:32 06/08/19 23 06/08/2022 LIPID PANEL , STAND SAMI non HDL cholesterol 145 mg/dL _(mireya c) <130 high For patie nts with diabe yina plus 1 major ASCVD risk facto r, treat ing to a non-H DL-C goal of <100 mg/dL (LDL- C of <70 mg/dL ) is consi santy a nettie ire[place] c optio n. Not Available [facility] [place] [facility] [address] [place], [address], 06/08/2022 06:08:32 06/08/19 23 06/08/2022 COMPR EHENS DAYA METAB OLIC PANEL glucose 162 mg/dL 65-139 high Non-f astin g refer ence inter yaneli Not Available [facility] [place] [facility] [address] [place], [address], 06/08/2022 06:08:32 06/08/19 23 06/08/2022 COMPR EHENS DAYA METAB OLIC PANEL urea nitrogen (BUN) 18 mg/dL 7-25 normal Not Available [facility] [place] [facility] [address] [place], [address], 06/08/2022 06:08:32 06/08/19 23 06/08/2022 COMPR EHENS DAYA METAB OLIC PANEL creatinine 1.06 mg/dL 0.70-1 .35 normal Not Available [facility] [place] [facility] [address] [place], [address], 06/08/2022 06:08:32 06/08/19 23 06/08/2022 COMPR EHENS [...] culat or Not Available [facility] [place] [facility] [address] [facility] [place] [place], [address], 06/08/2022 06:08:32 06/08/19 23 06/08/2022 COMPR EHENS DAYA METAB OLIC PANEL BUN/creatini ne ratio NOT APPLIC ABLE (calc ) 6-22 Not Available [facility] [place] [facility] [address] [facility] [place], [address], 06/08/2022 06:08:32 06/08/19 23 06/08/2022 COMPR EHENS DAYA METAB OLIC PANEL sodium 140 mmol/ L 135-14 6 normal Not Available [facility] [place] [facility] [address] [facility] [facility] [place], [address], 06/08/2022 06:08:32 06/08/19 23 06/08/2022 COMPR EHENS DAYA METAB OLIC PANEL potassium 4.5 mmol/ L 3.5-5. 3 normal Not Available [facility] [place] [facility] [address] [facility] [place] [place], [address], 06/08/2022 06:08:32 06/08/19 23 06/08/2022 COMPR EHENS DAYA METAB OLIC PANEL chloride 106 mmol/ L 98-110 normal Not Available [facility] [place] [facility] [address] [facility] [place], [address], 06/08/2022 06:08:32 06/08/19 23 06/08/2022 COMPR EHENS DAYA METAB OLIC PANEL carbon dioxide 22 mmol/ L 20-32 normal Not Available [facility] [place] [facility] [address] [facility] [facility] [place], [address], 06/08/2022 06:08:32 06/08/19 23 06/08/2022 COMPR EHENS DAYA METAB OLIC PANEL calcium 9.8 mg/dL 8.6-10 .3 normal Not Available [facility] [address] [place], [address], 06/08/2022 06:08:32 06/08/19 23 06/08/2022 COMPR EHENS DAYA METAB OLIC PANEL protein, total 6.8 g/dL 6.1-8. 1 normal Not Available [facility] [address] [facility] [facility] [place], [address], 06/08/2022 06:08:32 06/08/19 23 06/08/2022 COMPR EHENS DAYA METAB OLIC PANEL albumin 4.5 g/dL 3.6-5. 1 normal Not Available [facility] [address] [place], [address], 06/08/2022 06:08:32 06/08/19 23 06/08/2022 COMPR EHENS DAYA METAB OLIC PANEL globulin 2.3 g/dL_ (calc ) 1.9-3. 7 normal Not Available [facility] [address] [facility] [place], [address], 06/08/2022 06:08:32 06/08/19 23 06/08/2022 COMPR EHENS DAYA METAB OLIC PANEL albumin/glob ulin ratio 2.0 (calc ) 1.0-2. 5 normal Not Available [facility] [address] [place], [address], 06/08/2022 06:08:32 06/08/19 23 06/08/2022 COMPR EHENS DAYA [employer]IC PANEL bilirubin, total 0.4 mg/dL 0.2-1. 2 normal Not Available [facility] [address] [place], [address], 06/08/2022 06:08:32 06/08/19 23 06/08/2022 COMPR EHENS DAYA MET[employer] OLIC PANEL alkaline phosphatase 71 U/L 35-144 normal Not Available [facility] [address] [place], [address], 06/08/2022 06:08:32 06/08/19 23 06/08/2022 COMPR EHENS DAYA METAB OLIC PANEL AST 12 U/L 10-35 normal Not Available [facility] [address], [place], [address], 06/08/2022 06:08:32 06/08/19 23 06/08/2022 COMPR EHENS DAYA METAB OLIC PANEL ALT 15 U/L 9-46 normal Not Available [facility] [address], [place], [address], 06/08/2022 06:08:32 06/08/19 23 06/08/2022 CBC (INCL UDES DIFF/ PLT) white blood cell count 8.2 thous and/u L 3.8-10 .8 normal Not Available [facility] [address] [place], [address], 06/08/2022 05:23:27 06/08/19 23 06/08/2022 CBC (INCL UDES DIFF/ PLT) red blood cell count 4.64 melissa on/uL 4.20-5 .80 normal Not Available [facility] [address], [place], [address], 06/08/2022 05:23:27 06/08/19 23 06/08/2022 CBC (INCL UDES DIFF/ PLT) hemoglobin 15.1 g/dL 13.2-1 7.1 normal Not Available [facility] [address], [place], [address], 06/08/2022 05:23:27 06/08/19 23 06/08/2022 CBC (INCL UDES DIFF/ PLT) hematocrit 43.3 % 38.5-5 0.0 normal Not Available [facility] [place] [facility] [address], [place], [address], 06/08/2022 05:23:27 06/08/1906/08/2022 CBC (INCL UDES DIFF/ PLT) MCV 93.3 fL 80.0-1 00.0 normal Not Available [facility] [place] [facility] [address] [facility] [facility], [place], [address], 06/08/2022 05:23:27 06/08/19 23 06/08/2022 CBC (INCL UDES DIFF/ PLT) MCH 32.5 pg 27.0-3 3.0 normal Not Available [facility] [place] [facility] [address] [facility] [facility] [facility], [place], [address], 06/08/2022 05:23:27 06/08/19 23 06/08/2022 CBC (INCL UDES DIFF/ PLT) MCHC 34.9 g/dL 32.0-3 6.0 normal Not Available [facility] [place] [facility] [address] [facility] [facility] [facility], [place], [address], 06/08/2022 05:23:27 06/08/1906/08/2022 CBC (INCL UDES DIFF/ PLT) RDW 12.6 % 11.0-1 5.0 normal Not Available [facility] [place] [facility] [address] [facility] [facility] [facility], [place], [address], 06/08/2022 05:23:27 06/08/19 23 06/08/2022 CBC (INCL UDES DIFF/ PLT) platelet count 278 thous and/u L 140-40 0 normal Not Available [facility] [place] [facility] [address] [facility], [place], [address], 06/08/2022 05:23:27 06/08/19 23 06/08/2022 CBC (INCL UDES DIFF/ PLT) MPV 10.2 fL 7.5-12 .5 normal Not Available [facility] [place] [facility] [address], [place], [address], 06/08/2022 05:23:27 06/08/19 23 06/08/2022 CBC (INCL UDES DIFF/ PLT) absolute neutrophils 3559 cells /uL 1500-7 800 normal Not Available [facility] [place] [facility] [address], [place], [address], 06/08/2022 05:23:27 06/08/19 23 06/08/2022 CBC (INCL UDES DIFF/ PLT) absolute lymphocytes 3756 cells /uL 850-39 00 normal Not Available [facility] [place] [facility] [address], [place], [address], 06/08/2022 05:23:27 06/08/19 23 06/08/2022 CBC (INCL UDES DIFF/ PLT) absolute monocytes 656 cells /uL 200-95 0 normal Not Available [facility] [place] [facility] [address], [place], [address], 06/08/2022 05:23:27 06/08/19 23 06/08/2022 CBC (INCL UDES DIFF/ PLT) absolute eosinophils 148 cells /uL 15-500 normal Not Available [facility] [place] [facility] [address], [place], [address], 06/08/2022 05:23:27 06/08/19 23 06/08/2022 CBC (INCL UDES DIFF/ PLT) absolute basophils 82 cells /uL 0-200 normal Not Available [facility] [place] [facility] [address], [place], [address], 06/08/2022 05:23:27 06/08/19 23 06/08/2022 CBC (INCL UDES DIFF/ PLT) neutrophils 43.4 % normal Not Available [facility] [place] [facility] [address] [facility] [place], [address], 06/08/2022 05:23:27 06/08/19 23 06/08/2022 CBC (INCL UDES DIFF/ PLT) lymphocytes 45.8 % normal Not Available [facility] [place] [facility] [address] [place], [address], 06/08/2022 05:23:27 06/08/19 23 06/08/2022 CBC (INCL UDES DIFF/ PLT) monocytes 8.0 % normal Not Available [facility] [place] [facility] [address] [facility] [place], [address], 06/08/2022 05:23:27 06/08/19 23 06/08/2022 CBC (INCL UDES DIFF/ PLT) eosinophils 1.8 % normal Not Available [facility] [place] [facility] [address] [facility] [place], [address], 06/08/2022 05:23:27 06/08/19 23 06/08/2022 CBC (INCL UDES DIFF/ PLT) basophils 1.0 % normal Not Available [facility] [place] [facility] [address] [facility], [place], [address], 06/08/2022 05:23:27 06/08/19 23 06/08/2022 TSH TSH 3.21 mIU/L 0.40-4 .50 normal Not Available [facility] [place] [facility] [address] [facility] [place], [address], 06/08/2022 07:29:13 06/08/1906/08/2022 PSA, TOTAL PSA, total [...] not be inter prete d as absol [place] evide nce of the prese nce or absen ce of disea se. Not Available [facility] [place] [facility] [address] [facility], [place], [address], 06/08/2022 07:29:13 06/08/19 23 06/12/2022 HEMOG LOBIN [...] yina(A DA). Not Available [facility] [place] [facility] [address] [facility] [facility], [place], [address], 06/12/2022 02:21:10 01/03/20 22 01/02/2022 MRI proce dure (PROC ) No observ ation record ed. [email or web address] [facility] [address], [place], [address], 01/21/2022 17:15:17 04/08/19 23 04/08/2022 XR, hip + pelvi s, unila teral , 2 or 3 view No observ ation record ed. [email or web address] [facility] [address], [place], [address], 04/08/2022 13:23:17 Result Notes None recorded. Problems Name Problem SNOMED Code Status Onset Date Resolution Date Notes Provider Name and Address Organization Details Recorded Time Primary insomnia 0155519 Active 2019 Problem Code: F51.01; Problem Code Type: ICD-10; Not Available [facility] 2 22:42:38 Nocturia 689895211 Active 2019 Problem Code: R35.1; Problem Code Type: ICD-10; Not Available [facility] 2 22:42:41 Chronic fatigue syndrome 88798248 Completed 201912/17/2021 Problem Code: R53.82; Problem Code Type: ICD-10; TIGRE guillen, [employer]. 2 08:01:49 Liver function tests outside referenc e range 252595763 Completed 201911/03/2020 Problem Code: R94.5; Problem Code Type: ICD-10; Not Available [facility] 2 22:42:43 Choleste rol screenin g Completed 201912/17/2021 TIGRE guillen, [employer] 2 08:01:49 Impacted cerumen of bilatera l ears [id number] 39670 Completed 201912/17/2021 Problem Code: H61.23; Problem Code Type: ICD-10; TIGRE guillen, [employer] 2 08:01:48 Otogenic otalgia 37233056 Completed 201903/14/2020 Not Available [facility] 2 22:42:38 Retentio n of urine 562678970 Completed 201903/14/2020 TIGRE LANGSTON [employer] 2 08:01:49 Body mass index 30+ - obesity 658784117 Completed 201912/17/2021 Problem Code: Z68.30; Problem Code Type: ICD-10; TIGRE guillen, [employer]. 2 08:01:48 Neck pain 30679254 Completed 201912/17/2021 TIGRE guillen, [employer] 2 08:01:49 Low back pain 602600241 Active 2019 Problem Code: M54.5; Problem Code Type: ICD-10; Not Available [facility] 2 22:42:39 Screenin g for malignan t neoplasm of colon Completed 201912/17/2021 TIGRE LANGSTON [employer] 2 08:01:49 Degenera tion of lumbar interver tebral disc 26846175 Active 2019 Problem Code: M51.36; Problem Code Type: ICD-10; Not Available [facility] 2 22:42:47 Stool color abnormal 984466107 Completed 201903/14/2020 Problem Code: R19.5; Problem Code Type: ICD-10; Not Available [facility] 2 22:42:40 Mixed hyperlip idemia 080272188 Active 2019 Problem Code: E78.2; Problem Code Type: ICD-10; Not Available [facility] 2 22:42:38 Localize d edema 604477647 Active 2019 Problem Code: R60.0; Problem Code Type: ICD-10; Not Available [facility] 2 22:42:42 Tinea corporis 70372374 Completed 201912/17/2021 Problem Code: B35.4; Problem Code Type: ICD-10; TIGRE [employer] 2 08:02:15 Neoplasm of bone 657411495 Completed 201912/17/2021 [employer]. 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 2 08:01:49 Dyspnea 361269239 Completed 201912/17/2021 Problem Code: R06.02; Problem Code Type: ICD-10; TIGRE LANGSTON [employer] 2 08:01:49 Mitral valve regurgit ation 15183302 Active 2019 Problem Code: I34.0; Problem Code Type: ICD-10; Not Available [facility] 2 22:42:38 Cardiome avril 7517198 Active 2019 Problem Code: I51.7; Problem Code Type: ICD-10; Not Available [facility] 2 22:42:44 Allergic contact dermatit is 737347240 Completed 201912/17/2021 Problem Code: L23.9; Problem Code Type: ICD-10; TIGRE guillen, [employer] 2 08:01:49 General examinat ion of patient Completed 201903/14/2020 Not Available [facility] 2 22:42:43 Pre-surg giles evaluati on Completed 201912/17/2021 TIGRE PENANER [employer]. 2 08:01:48 Male erectile disorder Active 2019 TIGRE LANGSTON [employer] 2 08:02:08 Influenz a vaccine needed 90782618738 06 Completed 201903/14/2020 Problem Code: Z23; Problem Code Type: ICD-10; Not Available [facility] 2 22:42:45 Bilatera l hearing loss 93894744 Completed 201912/17/2021 TIGRE guillen, [employer] 2 08:01:49 Pain of left wrist 78495458738 9102 Completed 202006/12/2020 Problem Code: M25.532; Problem Code Type: ICD-10; Not Available [facility] 22:42:39 Body mass index 30+ - obesity 068222202 Completed 202006/12/2020 Problem Code: Z68.32; Problem Code Type: ICD-10; TIGRE guillen, [employer] 2 08:01:48 Diarrhea 44959659 Completed 202012/17/2021 Problem Code: R19.7; Problem Code Type: ICD-10; TIGRE guillen, [employer] 2 08:01:49 Enteric campylob acterios is 29901881 Completed 202012/17/2021 Problem Code: A04.5; Problem Code Type: ICD-10; TIGRE LANGSTON [employer], [employer] 2 08:01:49 Body mass index 30+ - obesity 272217982 Completed 202006/12/2020 Problem Code: Z68.30; Problem Code Type: ICD-10; TIGRE guillen, [employer] 2 08:01:48 Chronic fatigue syndrome 37260286 Completed 202011/03/2020 Problem Code: R53.82; Problem Code Type: ICD-10; TIGRE LANGSTON [employer] 2 08:01:49 Pre-surg giles testing Completed 202012/17/2021 Problem Code: Z01.810; Problem Code Type: ICD-10; TIGRE PENANER [employer], [employer] 2 08:01:48 Finding related to ability to pass urine 648130116 Active 2020 Not Available [facility] 22:42:39 Chronic fatigue syndrome 92784685 Completed 202011/03/2020 Problem Code: R53.82; Problem Code Type: ICD-10; TIGRE guillen, [employer] 2 08:01:49 Abnormal weight loss 130882718 Completed 202012/17/2021 Problem Code: R63.4; Problem Code Type: ICD-10; TIGRE guillen, [employer] 2 08:01:49 Dyspnea 770086347 Completed 202005/24/2021 Problem Code: R06.02; Problem Code Type: ICD-10; TIGRE guillen, [employer] 2 08:01:49 Chest pain 35003485 Completed 202005/24/2021 Problem Code: R07.9; Problem Code Type: ICD-10; Not Available [facility] 2 22:42:40 Tachycar mau 5914521 Completed 202005/24/2021 Not Available [facility] 22:42:39 Tension- type headache 469519870 Completed 202112/17/2021 Problem Code: G44.209; Problem Code Type: ICD-10; TIGRE guillen, [employer] 2 08:01:49 Acute sinusiti s 37856088 Completed 202112/17/2021 Problem Code: J01.90; Problem Code Type: ICD-10; TIGRE guillen, [employer] 2 08:01:48 Myositis 76187684 Completed 202112/17/2021 Problem Code: M60.9; Problem Code Type: ICD-10; TIGRE guillen, [employer] 2 08:01:49 COVID-19 508598107 Completed 202112/17/2021 Problem Code: U07.1; Problem Code Type: ICD-10; TIGRE LANGSTON [employer] 2 08:01:49 Otogenic otalgia 43496821 Completed 202106/11/2021 Not Available [facility] 2 22:42:38 Retentio n of urine 440831831 Completed 202112/17/2021 TIGRE LANGSTON [employer] 2 08:01:49 Problem Notes None recorded. Procedures Surgical History Date Name Laterality Status Provider Name and Address Organization Details Recorded Time 04/13/19 cholecystectomy completed Not Available [facility] 08/2021 22:56:08 Back Surgery completed [employer] 12/17/2021 14:02:03 Appendectomy completed [employer] 12/17/2021 14:02:25 Imaging Results None recorded. Procedure Notes None recorded. Medical Equipment None Reported. Allergies Allergen ID Allergen Name Allergen Category Reaction Reaction Severity Criticality Documentation Date Start Date Code Code System Note Provider Name and Address Organization Details Recorded Time 93082 Product containin g penicilli n (product) medicatio n Not available Not available Not available 12/04/2021 04242 8001 SNOMED TIGRE LANSGTON [employer] 2 08:00:50 72020 shellfish derived food,medi cation Not available Not available Not available 12/17/2021 TIGRE IVIS [employer] 2 13:56:09 Medications Name Sig Start Date [...] Updated DateTime 3 175.26 cm 32.8 kg/m2 998696. 51 g 98.1 [degF] 81 /min 96 % 96 % 110/70 mm[Hg] Asterisk 3 10:49:11 Date Recorded Body height Body mass index (BMI) Body weight Heart rate Oxygen saturation Oxygen saturation in Arterial blood by Pulse oximetry Systolic And Diastolic Provider Name and Address Organization Details Last Updated DateTime 3 175.26 cm 31.8 kg/m2 22741.4 6 g 64 /min 95 % 95 % 108/70 mm[Hg] Kristin [place] [employer] 3 07:57:48 Date Recorded Body height Body mass index (BMI) Body weight Body temperature Heart rate Oxygen saturation Oxygen saturation in Arterial blood by Pulse oximetry Systolic And Diastolic Provider Name and Address Organization Details Last Updated DateTime 2 175.26 cm 31 kg/m2 38672.4 g 98 [degF] 70 /min 96 % 96 % 110/60 mm[Hg] Asterisk 2 14:04:06 Date Recorded Body height Body mass index (BMI) Body weight Body temperature Heart rate Oxygen saturation Oxygen saturation in Arterial blood by Pulse oximetry Systolic And Diastolic Provider Name and Address Organization Details Last Updated DateTime 2 175.26 cm 32.5 kg/m2 97401.3 2 g 99 [degF] 77 /min 95 % 95 % 120/78 mm[Hg] Aster[facility] 2 07:40:52 Social History Question Answer Notes LastModified by Organizat ion Details LastModified Time Tobacco Smoking Status Former Smoker [employer] 12/17/2021 08:03:37 Do You Have An Advance Directive? Yes [email or web address] Information not available 12/17/2021 Are You Blind Or Do You Have Difficulty Seeing? No [email or web address] Information not available 12/17/2021 What Is Your Level Of Caffeine Consumption? Occasional Information not available 10/08/2022 In The 14 Days Before Symptom Onset, Have You Had Close Contact With A Laboratory-confir med COVID-19 While That Case Was Ill? No [email or web address] Information not available 12/17/2021 In The 14 Days Before Symptom Onset, Have You Had Close Contact With A Person Who Is Under Investigation For COVID-19 While That Person Was Ill? No [email or web address] Information not available 12/17/2021 Have You Been To An Area Known To Be High Risk For COVID-19? No [email or web address] Information not available 12/17/2021 Are You Deaf Or Do You Have Serious Difficulty Hearing? No [email or web address] Information not available 12/17/2021 What Type Of Diet Are You Following? REGULAR [email or web address] Information not available 12/17/2021 Do You Have A Medical Power Of Associate Veterinarian? Yes [email or web address] Information not available 12/17/2021 What Was The Date Of Your Most Recent Tobacco Screening? 10/08/2022 Information not available 10/08/2022 What Is Your Current Pack Years? [email or web address] ars [email or web address] Information not available 12/17/2021 What Is Your Relationship Status? [email or web address] Information not available 12/17/2021 Has Tobacco Cessation Counseling Been Provided? Yes Information not available 10/08/2022 On What Date Was Tobacco Cessation Counseling Provided? 10/08/2022 Information not available 10/08/2022 Have You Recently Traveled Abroad? No [email or web address] Information not available 12/17/2021 Do You Have Difficulty Walking Or Climbing Stairs? No [email or web address] Information not available 12/17/2021 Are You Currently In School? No [email or web address] Information not available 12/17/2021 Do You Have Any Dietary Restrictions? No [email or web address] Information not available 12/17/2021 Sex: Male Functional Status Question Answer Note LastModified by Organizat ion Details LastModified Time Do you use any illicit or recreational drugs? No Information not available 10/08/2022 What is your level of alcohol consumption? Occasional Information not available 10/08/2022 Do you have transportation difficulties? No Information not available 12/17/2021 Are you able to walk independently without assistance or assistive devices? YESWOREST [email or web address] Information not available 12/17/2021 Do you have difficulty doing errands alone? No [email or web address] Information not available 12/17/2021 Are you able to care for yourself independently? Yes [email or web address] Information not available 12/17/2021 Do you have difficulty dressing, bathing, grooming, or toileting? No [email or web address] Information not available 12/17/2021 What is your exercise level? Occasional [email or web address] Information not available 12/17/2021 Mental Status Question Answer Note LastModified by Organization D etails LastModified Time Do you have difficulty concentrating, remembering or making decisions? No [email or web address] Information no t available 12/17/2021 Family History Relationship Description Onset Age of this Age Resolved Age Notes LastModified by Organization Details LastModified Time Mother Family history of hyperlipidem ia [email or web address] Not available 12/17 14:00:24 Mother Family history of Hypertension [email or web address] Not available 14:00:27 Mother Diabetes mellitus Not available 12/17 14:00:37 Medical History Condition Response Allergies (Food, seasonal, environmental ) Y Acid Reflux (GERD) Y Asthma Y High Cholesterol Y Immunizations Vaccine Type Date Status Note Provider Nam e and Address Organization Details Recorded Time Influenza, split virus, quadrivalent, preservative 0 completed TIGRE guillen [employer] 03/11/2022 15:14:29 Tdap 6 completed TIGRE guillen [employer] 03/11/2022 15:14:29 COVID-19, mRNA, LNP-S, PF, 100 mcg/0.5mL dose or 50 mcg/0.25mL dose 1 completed TIGRE guillen [employer] 03/11/2022 15:14:29 Influenza, MDCK, quadrivalent, PF 2 completed TIGRE guillen [place] [employer] 03/11/2022 15:14:29 COVID-19, mRNA, LNP-S, PF, 100 mcg/0.5mL dose or 50 mcg/0.25mL dose 1 completed TIGRE guillen [facility] [employer] 03/11/2022 15:14:29 COVID-19, mRNA, LNP-S, PF, 100 mcg/0.5mL dose or 50 mcg/0.25mL dose 1 completed TIGRE guillen [place] [employer] [employer] 03/11/2022 15:14:29 Past Encounters Encounter ID Performer Location Encounter Start Date Encounter Closed Date Diagnosis/Indication Diagnosis SNOMED-CT Code Diagnosis ICD10 Code Diagnosis IMO Codes Diagnosis Note [id number] [place] [id number] 12/17/2021 13:37:47 12/17/2021 14:34:11 Mixed hyperlipidemia 798313408 E78.2 Primary insomnia 0229087 F51.01 Low back pain 040970278 M54.50 Essential hypertension 31091808 I10 Gastroesop hageal reflux disease without esophagitis 548964234 K21.9 Erectile dysfunction 860 135742 F52.21 Chronic ob structive pulmonary disease 72584140 J44.9 Seizure disorder 2186269 02 G40.909 [id number] Ciara Shay [place] [id number] 03/11/2022 14:43:36 03/11/2022 15:42:25 Localized edema 098345892 R60.0 Low back pain 829060826 M54.50 Mixed hyperlipidemia 267 751968 E78.2 Essential hypertension 03329613 I10 Seizure disorder 5658533 02 G40.909 Primary insomnia 1947295 F51.01 Chronic ob structive pulmonary disease 35092708 J44.9 Erectile dysfunction 860 713685 F52.21 Gastroesop hageal reflux disease without esophagitis 737999608 K21.9 [id number] [place] [id number] 06/07/2022 10:36:37 06/07/2022 11:23:08 Finding related to ability to pass urine 382372175 N40.1 Mixed hyperlipidemia 267 244182 E78.2 Chronic fa tigue syndrome 35616625 R53.82 Essential hypertension 31524071 I10 Seizure disorder 7529947 02 G40.909 Low back pain 775908866 M54.50 Primary insomnia 3882420 F51.01 Gastroesop hageal reflux disease without esophagitis 337407354 K21.9 Erectile dysfunction 860 909445 F52.21 Localized edema 96167998 4 R60.0 Body mass index 30+ - obesity 935032203 Z68.32 [id number] [place] [id number] 10/08/2022 07:46:24 10/08/2022 08:38:44 Essential hypertension 12250181 I10 Mixed hyperlipidemia 267 610018 E78.2 Seizure disorder 2615725 02 G40.909 Primary insomnia 1457563 F51.01 Gastroesop hageal reflux disease without esophagitis 872998893 K21.9 Erectile dysfunction 860 456679 F52.21 Localized edema 89692898 4 R60.0 Body mass index 30+ - obesity 132126820 Z68.32 Health Concerns Section Related Observation LastModified by Organization Detai ls LastModified Time None Recorded Concern Status LastModified by Organization Details LastModified Time None Recorded Advance Directives Directive Y: Payers Insurance Date Sequence Insurance Name Policy Number Policy Stone Covered Member ID Stone Member ID Guarantor Name 11/07/2022 1 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 (MEDICAID REPLACEMENT - HMO) Eric Laguna [id number] Eric Laguna Notes Date Note Type Note [...] you have a Dentist? No Imported from [employer] on 12/17/2021 Ciaradaxa Shay APRN [address] [place], [address], [employer] 12/17/2021 15:13:35 03/11/2022 text/html pt here today for medication refills. pt states that hes doing [...] some pain pills. Ciara Shay APRN [address] [place], [address], [employer]. 03/12/2022 13:13:17 06/07/2022 text/html pt here today for medication refills. pt states hes doing well on current medication regime and has no new complaints today. pt states that he hasnt see dr rodriguez in a while and that the injections werent helping anyway. advised pt to call and get a f/u appt so that he can possibly do other interventions. ordered routine labwork today. Ciara Shay APRN [address] [place], [address], [employer]. 06/07/2022 11:36:45 10/08/2022 text/html pt here today for medication refills. pt states hes doing well [...] writes him lortabs. Ciara Shay APRN [address] [facility], [place], [address], [facility] [employer] 10/08/2022 09:47:47
== END 2025-01-24 23:59 | disposition home or self-care (01) ==
LOC: RAD 07:28
PROVIDERS: PCP Nurse Practitioner Family; Visit Provider Internal Medicine Pulmonary Disease
DX: R91.1 Solitary pulmonary nodule (principal)
CPT/HCPCS: 71250